=== PATIENT | male | born 1955 | race Caucasian/White ===

== ENCOUNTER 2023-12-09 14:51 | Inpatient (IN) | payer MEDICARE ==
[2023-12-09] MEDS: T.ENECTEPLASE 5 MG/ML VIAL IVP STA (15:17)
--- NOTE | 2023-12-09 16:14 | CT ---
EXAMINATION TYPE: CT brain wo con DATE OF EXAM: 12/09/2023 COMPARISON: None HISTORY: 68-year-old male left side weakness, neuro deficit TECHNIQUE: Examination was done in axial plane without intravenous contrast. Coronal and sagittal r econstructions performed. CT DLP: 1188.6 mGycm Automated exposure control for dose reduction was used. FINDINGS: There is no evidence of acute intracranial hemorrhage, acute ischemic changes, mass, mass-effect, or extra-axial fluid collection. There is no effacement of cerebral sulci or basal subarachnoid cister ns. Mild ventricular prominence likely due to central cerebral atrophy. Moderate patchy white matter hypodensities in both cerebral hemispheres. There is no midline shift. Corral-white matter distinction is preserved. Paranasal sinuses and mastoid air cells are well pneumatized. IMPRESSION: Mild ventriculomegaly likely due to central cervical atrophy. Moderate patchy burden of chronic small vessel ischemic disease. No acute intracranial abnormality seen.
--- NOTE | 2023-12-09 16:25 | CT ---
EXAMINATION TYPE: CT angio head neck DATE OF EXAM: 12/09/2023 COMPARISON: None HISTORY: 68-year-old male left side weakness, neuro deficit TECHNIQUE: Contiguous axial scanning of the head and neck performed with IV Contrast, patient injecte d with 65ml mL of Isovue 370. Coronal/sagittal reconstructions performed. 3-D reconstructions generat ed on a dedicated workstation. CT DLP: 523.9 mGycm Automated exposure control for dose reduction was used. FINDINGS: NECK: Some pleural calcifications noted. Prominent irregular focal opacities right upper lobe. Partially vi sualized irregular opacity right upper lobe with possible internal cavitation measuring at least 3.7 cm. Underlying neoplastic etiology or atypical mycobacterial/fungal infections should be excluded. 1.8 cm right hilar node. There appears to be right upper lobe segmental branch emboli, axial image 9. Conventional arch vessel branching anatomy. Dominant left vertebral artery. These vessels may have moderate stenoses at their origins but are oth erwise patent. NASCET criteria is visualized. The right common and right internal carotid arteries are patent with mild atherosclerotic change but no significant narrowing. More extensive atherosclerotic change at the left carotid bifurcation with a severe, greater than 80% , possibly 90% stenosis proximal left ICA. HEAD: The hypoplastic right vertebral artery may terminate as a PICA branch. There is persistent orig in right MEDICAL COLLECTOR. Basilar artery remainder of the posterior circulation appear patent. Atherosclerotic calcifications in the left greater than the right carotid siphons with moderate steno sis cavernous segment left ICA. Otherwise, the remainder of the anterior circulation is patent. No aneurysmal change is seen. Dural venous sinuses are patent. IMPRESSION: NECK: 1. SEVERE, POSSIBLY UP TO 90% PROXIMAL LEFT ICA STENOSIS. 2. DOMINANT LEFT VERTEBRAL ARTERY. 3. ABNORMAL FOCAL OPACITIES RIGHT UPPER LOBE. ONE OF THESE OPACITIES MAY SHOW SOME INTERNAL CAVITATIO N. NEOPLASTIC ETIOLOGY AND ATYPICAL FUNGAL/MYCOBACTERIAL INFECTIONS ARE IN THE DIFFERENTIAL. FURTHER APPROPRIATE WORKUP ADVISED. 4. THE EXAM APPEARS POSITIVE FOR SEGMENTAL BRANCH PULMONARY EMBOLI TO THE RIGHT UPPER LOBE. CALLED TO DR. MCCLAIN IN THE ER AT 4:20 PM. HEAD: 5. ANATOMIC VARIATION WITH THE RIGHT VERTEBRAL ARTERY TERMINATING A PICA BRANCH AND PERSISTENT FET AL ORIGIN RIGHT MEDICAL COLLECTOR. 6. Moderate atherosclerotic stenosis cavernous segment left ICA. 7. No large vessel intracranial arterial occlusion, significant stenosis, or aneurysmal change is oth erwise seen.
--- NOTE | 2023-12-09 16:37 | ED ---
General Adult HPI - General Time Seen by Provider: 12/09/23 14:51 Source: patient, RN notes reviewed, old records reviewed - History of Present Illness Initial comments: This is a 68-year-old male who presents to the emergency department and states he was standing at the counter and just fell to the ground and hit his knees but he did not have any significant injury. Patient denies hitting his head or neck. Patient's came in and found him and he had slurred speech left-sided facial droop left arm weakness and left leg weakness. Patient went to CAT scan and when he returned his speech was clear however the other deficits remained. - Related Data Allergies Allergy/AdvReac Type Severity Reaction Status Date / Time diphenhydramine Allergy Rapid Verified 12/09/23 17:02 [From Benadryl] Heart Rate Review of Systems ROS Statement: Those systems with pertinent positive or pertinent negative responses have been documented in the HPI. ROS Other: All systems not noted in ROS Statement are negative. General Exam - General Exam Comments Initial Comments: GENERAL: Patient is well-developed and well-nourished. Patient is nontoxic and well- hydrated and is in mild distress. ENT: Neck is soft and supple. No significant lymphadenopathy is noted. Oropharynx is clear. Moist mucous membranes. Neck has full range of motion without eliciting any pain. EYES: The sclera were anicteric and conjunctiva were pink and moist. Extraocular movements were intact and pupils were equal round and reactive to light. Eyelids were unremarkable. PULMONARY: Unlabored respirations. Good breath sounds bilaterally. No audible rales rhonchi or wheezing was noted. CARDIOVASCULAR: There is a regular rate and rhythm without any murmurs gallops or rubs. ABDOMEN: Soft and nontender with normal bowel sounds. SKIN: Skin is clear with no lesions or rashes and otherwise unremarkable. NEUROLOGIC: Patient is alert and oriented x3. Patient had left-sided facial droop. Patient had weakness on the left arm and left leg 3 out of 5. Patient had pronator drift on the left side as well. Patient had slurred speech initially however after CAT scan had already resolved finger-nose testing was off on the left side only MUSCULOSKELETAL: Normal extremities with adequate strength and full range of motion. LYMPHATICS: No significant lymphadenopathy is noted PSYCHIATRIC: Normal psychiatric evaluation. Course Vital Signs 12/09/23 14:51 Temperature 98.4 F Pulse Rate 84 Respiratory 16 Rate Blood Pressure 123/74 O2 Sat by Pulse 94 L Oximetry Medical Decision Making - Medical Decision Making EKG is interpreted by myself EKG shows a sinus rhythm at 82 bpm parables 183 QRS is 94 QT interval 362 QTc is 400. Patient has Q waves in the inferior leads. Was pt. sent in by a medical professional or institution (, PA, NURSE SUPERVISOR, urgent care, hospital, or [facility]...) When possible be specific @ -No Did you speak to anyone other than the patient for history (EMS, parent, family, police, friend...)? What history was obtained from this source @ -EMS gave the history from when they picked him up to when they arrived here and his deficits that they appreciated. Did you review nursing and triage notes (agree or disagree)? Why? @ -I reviewed and agree with nursing and triage notes Were old charts reviewed (outside hosp., previous admission, EMS record, old EKG, old radiological studies, urgent care reports/EKG's, [facility] records)? Report findings @ -No old charts were reviewed Differential Diagnosis (chest pain, altered mental status, abdominal pain women, abdominal pain men, vaginal bleeding, weakness, fever, dyspnea, syncope, headache, dizziness, GI bleed, back pain, seizure, CVA, palpatations, mental health, musculoskeletal)? @ -Differential CVA Ischemic stroke, hemorrhagic stroke, brain tumor, atypical migraine, Wernicke's encephalopathy, seizure, multiple sclerosis, meningitis, encephalitis, hypoglycemia, Guillain-Gilliam, electrolytes disturbance, myasthenia gravis.... This is not meant to be an all-inclusive list EKG interpreted by me (3pts min.). @ -As above X-rays interpreted by me (1pt min.). @ -Chest x-ray showed right upper lobe opacification CT interpreted by me (1pt min.). @ -CT of the brain showed no acute normality. CT angiogram of the head and neck show severe left internal carotid artery stenosis some possible PEs in the right upper lobe and there is. Already did a CT PE study which showed multiple pulmonary embolisms in the right upper lobe with possible infarcted lung U/S interpreted by me (1pt. min.). @ -None done What testing was considered but not performed or refused? (CT, X-rays, U/S, labs)? Why? @ -None What meds were considered but not given or refused? Why? @ -None Did you discuss the management of the patient with other professionals (professionals i.e. DrSharmin, PA, NURSE SUPERVISOR, lab, RT, psych nurse, social media developer, skylights assembler, teacher, examining officer, human services case manager)? Give summary @ -I spoke with Dr. Whatley he agreed admit the patient. I spoke with Dr. Bills he agreed to take the patient in the ICU. I also spoke with the neurologist Dr. Bills and he agreed to follow-up with the patient I spoke with the neurointerventionist Dr. Alexander Was smoking cessation discussed for >3mins.? @ -No Was critical care preformed (if so, how long)? @ -15 minutes Were there social determinants of health that impacted care today? How? (Homelessness, low income, unemployed, alcoholism, drug addiction, transportation, low edu. Level, literacy, decrease access to med. care, custodial, rehab)? @ -No Was there de-escalation of care discussed even if they declined (Discuss DNR or withdrawal of care, Hospice)? DNR status @ -No What co-morbidities impacted this encounter? (DM, HTN, Smoking, COPD, CAD, Cancer, CVA, ARF, Chemo, Hep., AIDS, mental health diagnosis, sleep apnea, morbid obesity)? @ -None Was patient admitted / discharged? Hospital course, mention meds given and route, prescriptions, significant lab abnormalities, going to OR and other pertinent info. @ -Patient came in and presented as acute stroke he did receive TNKase. Patient end had CT of the chest to see if the patient had PE he did indeed have PEs however heparin was held at this time secondary to the fact he just got TNKase. I went back and reevaluated the patient and he had no symptoms at this time. Patient denied any history of recent cough fever or difficulty breathing. Undiagnosed new problem with uncertain prognosis? @ -No Drug Therapy requiring intensive monitoring for toxicity (Heparin, Nitro, Insulin, Cardizem)? @ -No Were any procedures done? @ -No Diagnosis/symptom? @ -CVA Acute, or Chronic, or Acute on Chronic? @ -Acute Uncomplicated (without systemic symptoms) or Complicated (systemic symptoms)? @ -Complicated Side effects of treatment? @ -No Exacerbation, Progression, or Severe Exacerbation? @ -No Poses a threat to life or bodily function? How? (Chest pain, [place], [place], pneumonia, PE, COPD, DKA, ARF, appy, cholecystitis, CVA, Diverticulitis, Homicidal, Suicidal, threat to staff... and all critical care pts) @ -Yes this can lead to further stroke and morbidity mortality Diagnosis/symptom? @ -Pulmonary embolisms Acute, or Chronic, or Acute on Chronic? @ -Acute Uncomplicated (without systemic symptoms) or Complicated (systemic symptoms)? @ -Complicated Side effects of treatment? @ -None Exacerbation, Progression, or Severe Exacerbation] @ -No Poses a threat to life or bodily function? @ -Yes this could lead to hypoxia and endorgan dysfunction - Lab Data Result diagrams: 12/09/23 16:48 12/09/23 16:48 Lab Results 12/09/23 12/09/23 12/09/23 Range/Units 16:48 16:48 16:48 WBC 10.0 (3.8-10.6) k/uL RBC 4.87 (4.30-5.90) m/uL Hgb 15.1 (13.0-17.5) gm/dL Hct 45.2 (39.0-53.0) % MCV 92.8 (80.0-100.0) fL MCH 31.0 (25.0-35.0) pg MCHC 33.4 (31.0-37.0) g/dL RDW 15.9 H (11.5-15.5) % Plt Count 282 (150-450) k/uL MPV 7.4 Neutrophils % 81 % Lymphocytes % 10 % Monocytes % 6 % Eosinophils % 1 % Basophils % 0 % Neutrophils # 8.1 H (1.3-7.7) k/uL Lymphocytes # 1.0 (1.0-4.8) k/uL Monocytes # 0.6 (0-1.0) k/uL Eosinophils # 0.1 (0-0.7) k/uL Basophils # 0.0 (0-0.2) k/uL PT 11.3 (10.0-12.5) sec INR 1.0 (<1.2) APTT 22.9 (22.0-30.0) sec Sodium 134 L (137-145) mmol/L Potassium 4.4 (3.5-5.1) mmol/L Chloride 101 (98-107) mmol/L Carbon Dioxide 26 (22-30) mmol/L Anion Gap 7 mmol/L BUN 17 (9-20) mg/dL Creatinine 1.11 (0.66-1.25) mg/dL Est GFR (CKD-EPI)AfAm 78 (>60 ml/min/1.73 sqM) Est GFR (CKD-EPI)NonAf 67 (>60 ml/min/1.73 sqM) Glucose 128 H (74-99) mg/dL Plasma Lactic Acid Ziggy (0.7-2.0) mmol/L Calcium 9.4 (8.4-10.2) mg/dL Total Bilirubin 0.8 (0.2-1.3) mg/dL AST 22 (17-59) U/L ALT 15 (4-49) U/L Alkaline Phosphatase 75 (38-126) U/L Troponin I (0.000-0.034) ng/mL Total Protein 7.0 (6.3-8.2) g/dL Albumin 4.1 (3.5-5.0) g/dL 12/09/23 12/09/23 Range/Units 16:48 16:48 WBC (3.8-10.6) k/uL RBC (4.30-5.90) m/uL Hgb (13.0-17.5) gm/dL Hct (39.0-53.0) % MCV (80.0-100.0) fL MCH (25.0-35.0) pg MCHC (31.0-37.0) g/dL RDW (11.5-15.5) % Plt Count (150-450) k/uL MPV Neutrophils % % Lymphocytes % % Monocytes % % Eosinophils % % Basophils % % Neutrophils # (1.3-7.7) k/uL Lymphocytes # (1.0-4.8) k/uL Monocytes # (0-1.0) k/uL Eosinophils # (0-0.7) k/uL Basophils # (0-0.2) k/uL PT (10.0-12.5) sec INR (<1.2) APTT (22.0-30.0) sec Sodium (137-145) mmol/L Potassium (3.5-5.1) mmol/L Chloride (98-107) mmol/L Carbon Dioxide (22-30) mmol/L Anion Gap mmol/L BUN (9-20) mg/dL Creatinine (0.66-1.25) mg/dL Est GFR (CKD-EPI)AfAm (>60 ml/min/1.73 sqM) Est GFR (CKD-EPI)NonAf (>60 ml/min/1.73 sqM) Glucose (74-99) mg/dL Plasma Lactic Acid Ziggy 1.5 (0.7-2.0) mmol/L Calcium (8.4-10.2) mg/dL Total Bilirubin (0.2-1.3) mg/dL AST (17-59) U/L ALT (4-49) U/L Alkaline Phosphatase (38-126) U/L Troponin I <0.012 (0.000-0.034) ng/mL Total Protein (6.3-8.2) g/dL Albumin (3.5-5.0) g/dL Critical Care Time Critical Care Time: Yes Total Critical Care Time: 35 Disposition Clinical Impression: Cerebrovascular accident (CVA), Pulmonary embolism Disposition: ADMITTED IP TO THIS [facility] Referrals: Nonstaff,Physician [REFERRING] - 1-2 days Time of Disposition: 19:33
[2023-12-09 16:55] LABS: Basophils % (A) 0 %; Eosinophils # (A) 0.1 k/uL (0-0.7); Eosinophils % (A) 1 %; HCT 45.2 % (39.0-53.0); HGB 15.1 gm/dL (13.0-17.5); Lymphocytes % (A) 10 %; MCHC 33.4 g/dL (31.0-37.0); MCV 92.8 fL (80.0-100.0); Mean Platelet Volume 7.4; Monocytes # (A) 0.6 k/uL (0-1.0); Monocytes % (A) 6 %; Neutrophils # (A) 8.1 k/uL (1.3-7.7); Neutrophils % (A) 81 %; Platelet Count 282 k/uL (150-450); RBC 4.87 m/uL (4.30-5.90); RDW 15.9 % (11.5-15.5)
[2023-12-09 17:03] LABS: Partial Thromboplastin Time 22.9 sec (22.0-30.0); Prothrombin Time 11.3 sec (10.0-12.5)
[2023-12-09 17:04] LABS: ALT 15 U/L (4-49); AST 22 U/L (17-59); African American GFR (CKD) 78 (>60 ml/min/1.73 sqM); Albumin 4.1 g/dL (3.5-5.0); Alkaline Phosphatase 75 U/L (38-126); Anion Gap 7 mmol/L; Blood Urea Nitrogen 17 mg/dL (9-20); Calcium 9.4 mg/dL (8.4-10.2); Carbon Dioxide 26 mmol/L (22-30); Chloride 101 mmol/L (98-107); Glucose 128 mg/dL (74-99); Non-African American GFR(CKD) 67 (>60 ml/min/1.73 sqM); Potassium 4.4 mmol/L (3.5-5.1); Sodium 134 mmol/L (137-145); Total Bilirubin 0.8 mg/dL (0.2-1.3)
--- NOTE | 2023-12-09 17:33 | XR ---
EXAMINATION TYPE: XR chest 2V DATE OF EXAM: 12/09/2023 5:18 PM CLINICAL INDICATION:Male, 68 years old with history of altered mental status; H COMPARISON: None TECHNIQUE: XR chest 2V Frontal and lateral views of the chest. FINDINGS: Lungs/Pleura: Right mid and upper lung airspace opacities. There is no evidence of pleural effusion, focal consolidation, or pneumothorax. Pulmonary vascularity: Unremarkable. Heart/mediastinum: Cardiomediastinal silhouette is unremarkable. Musculoskeletal: No acute osseous pathology. Midline sternotomy wires are noted. IMPRESSION: Right midlung and upper lung airspace opacities correlate for developing pneumonia.
--- NOTE | 2023-12-09 19:10 | CT ---
EXAMINATION TYPE: CT chest angio for PE CT DLP: 381.36 mGycm, Automated exposure control for dose reduction was used. DATE OF EXAM: 12/09/2023 6:42 PM COMPARISON: CTA neck same day. CLINICAL INDICATION:Male, 68 years old with history of Previous CT shows possible PE; possible PE see n on CTA neck scan TECHNIQUE/CONTRAST: CTA scan of the thorax is performed with IV Contrast, patient injected with 73cc mL of Isovue 370, MO P images are created and reviewed these are created on a separate workstation.. FINDINGS: Pulmonary Artery: Filling defect within the right upper lung pulmonary segmental artery series 411 im age 55. Other small filling defects felt to be present in the subsegmental branches of the right uppe r and middle lobe. Filling defects extend extend to these wedge-shaped peripheral opacities seen with in the right upper and middle lung. Lungs/Pleura: Multiple airspace opacities in the right lung somewhat cavitation centrally tonsil area in the middle lobe along the minor fissure measuring at least 4.4 x 2.5 cm. Scattered calcifications are seen along the pleura. No left-sided consolidation, pneumothorax or pleural effusion. Airway: Large airways are patent. Heart: Heart is within normal limits for size. Aortic valve calcifications are present. Coronary stephani ry cusp patient's are present. Vasculature: No evidence of aortic aneurysm. Mediastinum: No gross evidence of adenopathy. Musculoskeletal: No acute osseous abnormalities Soft Tissues/lymph nodes: Unremarkable. Lower neck: No significant findings. Upper Abdomen: No significant findings. IMPRESSION: 1. Right upper lunge pulmonary emboli visualized in the subsegmental and subsegmental arterial vascul ature. 2. Airspace opacities in the right upper and right middle lobe somewhat peripheral with at least one with cavitation. Given pulmonary emboli these may represent infarcts. Correlate for infectious etiolo gies. 3. Calcifications along the pleura which can be seen in setting of asbestos exposure. Findings communicated to Dr. Ashkan Hutchinson MD on 12/09/2023 7:[address] Brayden Durham
--- NOTE | 2023-12-09 20:47 | US ---
EXAMINATION TYPE: US venous doppler duplex LE DATE OF EXAM: 12/09/2023 8:16 PM COMPARISON: NONE CLINICAL INDICATION: Male, 68 years old with history of Pulmonary embolisms and stroke; Patient has P E SIDE PERFORMED: Bilateral TECHNIQUE: The lower extremity deep venous system is examined utilizing real time linear array sonog skye with graded compression, doppler sonography and color-flow sonography. VESSELS IMAGED: Common Femoral Vein Deep Femoral Vein Greater Saphenous Vein * Femoral Vein Popliteal Vein Small Saphenous Vein * Proximal Calf Veins (* superficial vessels) Right Leg: Collateral vessels seen branching off the distal CFV. Distal CFV appears to have no flow. Vessel anterior to this vein does have color flow could represent greater saphenous vein. Echoes see n along the velazquez within the popliteal vein. Vessel appears partially compressible Left Leg: Negative for DVT Grayscale, color doppler, spectral doppler imaging performed of the deep veins of the lower extremiti es. There is normal flow, compressibility, vascular waveforms. IMPRESSION: Deep vein thrombosis of the distal common femoral vein. Partial occlusion of the popliteal vein nonoc clusive thrombus also felt to be present.
[2023-12-09 21:01] LABS: Glucose,Whole Blood 133 mg/dL (70-110)
[2023-12-10] MEDS ORDERED: DEXTROSE 50% SYRINGE 50 ML IVP PRN ×2 (03:08)
[2023-12-10 05:10] LABS: Glucose,Whole Blood 124 mg/dL (70-110)
[2023-12-10] MEDS: INSULIN ASPART (NovoLOG) 100 UNIT/ML VIAL SQ SCH (06:01)
--- NOTE | 2023-12-10 06:29 | P.CNPUL ---
History of Present Illness Consult date: 12/10/23 Requesting physician: Ashkan Hutchinson Reason for consult: other (ICU management, CVA status post tenecteplase, pulmonary emboli) Chief complaint: Fall and left-sided weakness History of present illness: Patient is a 68-year-old white male with past medical history significant for diabetes mellitus, prostate cancer status post radiation, former tobacco smoker quitting 2 years ago, and recent COVID infection. Patient was in the kitchen yesterday, he had a fall to the ground, hit his knees. His heard this, and found him on the ground. He could not stand back up by himself. He had slurred speech, left-sided facial droop, and left-sided weakness. 911 was called immediately, and a code stroke was initiated. Patient was transferred to [facility] on ER. Initial NIH score is 6. Noncontrast CT of the brain showed mild ventriculomegaly likely due to central cervical atrophy. Moderate patchy burden of chronic small vessel ischemic disease. No acute intracranial process seen. Follow-up CT angio of the head and neck showed severe, possibly up to 90% proximal left ICA stenosis. Dominant left vertebral artery. No large vessel intracranial arterial occlusion, significant stenosis, or aneurysm change otherwise seen. Patient did receive tenecteplase infusion per protocol. There were some incidental pulmonary findings noted on CTA of the head and neck, which initiated a chest CTA to be performed which showed right upper lung pulmonary emboli visualized in the segmental and subsegmental arterial vasculature. There are airspace opacities in the right upper and right middle lobes, somewhat peripheral with at least 1 area of cavitation. Given the patient's pulmonary emboli, these likely represent pulmonary infarcts. There was also incidentally some pleural plaquing noted. Patient is currently in the intensive care unit, on room air, in no acute distress. He continues to have a left-sided facial droop, with dysarthria, and left-sided hemiparesis. Blood pressure currently 138/70 mmHg. Heart rhythm appears normal sinus on bedside monitor, around 80 bp m. No respiratory distress or tachypnea. Patient denies any infectious symptoms such as fevers, cough, sputum production, chest pain, hemoptysis. Actually denies any pulmonary complaints. He is currently on room air. SpO2 is 93%. He did reportedly have a recent COVID infection back in September, when he was visiting in [place]. He did not go to the hospital at this time. Mode of transportation was driving. Denies any personal history of blood clots. Denies any recent surgeries or trauma. A follow-up venous Doppler did identify a DVT of the distal common femoral vein on the right, with a partial occlusion of the popliteal vein nonocclusive thrombus also felt to be present. CBC unremarkable. No leukocytosis. Baseline coagulation profile includes a PT of 11.3, INR of 1, APTT of 22.9. BMP includes: Sodium 134, potassium 4.4, chloride 101, serum bicarb 26, BUN 17, creatinine 1.11, glucose 128. Lactic acid 1.5. LFTs not elevated. Troponin less than 0.012. EKG on arrival shows normal sinus without any acute ischemic changes. Follow-up echocardiogram is pending. Neurochecks are continuing per protocol. Follow-up CT of the brain without contrast is pending for the morning. Review of Systems Review REVIEW OF SYSTEMS: CONSTITUTIONAL: Denies any recent significant weight loss or weight gain. EYES: Denies change in vision. EARS, NOSE, MOUTH, THROAT: Denies headaches, denies sore throat. CARDIOVASCULAR: Denies chest pain, palpitations or syncopal episodes. RESPIRATORY: Denies shortness of breath, cough, congestion or hemoptysis. GASTROINTESTINAL: Denies change in appetite, abdominal pain, nausea and vomiting, or diarrhea GENITOURINARY: Denies hematuria, denies infections. MUSKULOSKELETAL: Denies pain, denies swelling. INTEGUMENTARY: Denies rash, denies eczema. NEUROLOGICAL: Denies recent memory loss, no recent seizure activity. Does admit acute left-sided weakness and fall as described in HPI PSYCHIATRIC: Denies anxiety, denies depression. HEMATOLOGIC/LYMPHATIC: Denies anemia, denies enlarged lymph node of systems Past Medical History Past Medical History: Diabetes Mellitus, Prostate Disorder History of Any Multi-Drug Resistant Organisms: None Reported Past Surgical History: Appendectomy, Joint Replacement Additional Past Surgical History / Comment(s): L knee Past Psychological History: No Psychological Hx Reported Smoking Status: Former smoker Past Alcohol Use History: Rare Past Drug Use History: None Reported Medications and Allergies Home Medications Medication Instructions Recorded Confirmed Type Empagliflozin/Metformin HCl 1 tab PO DAILY 12/09/23 12/09/23 History [Synjardy Xr 12.5-1,000 mg Tab] Ketoconazole 2% Shampoo [Nizoral] 1 applic TOPICAL MO 12/09/23 12/09/23 History Lansoprazole [Prevacid 24Hr] 15 mg PO DAILY 12/09/23 12/09/23 History Magnesium(Unknown Dose) 1 tab PO DAILY 12/09/23 12/09/23 History Semaglutide [Ozempic] 0.5 mg SQ MO 12/09/23 12/09/23 History Tamsulosin [Flomax] 0.4 mg PO DAILY 12/09/23 12/09/23 History Vitamin B-12(Unknown Dose) 1 tab PO DAILY 12/09/23 12/09/23 History Vitamin D3(Unknown Dose) 1 tab PO DAILY 12/09/23 12/09/23 History tadalafiL 5 mg PO Q2D 12/09/23 12/09/23 History Allergies Allergy/AdvReac Type Severity Reaction Status Date / Time diphenhydramine Allergy Rapid Verified 12/09/23 20:18 [[facility]] Heart Rate Physical Exam Vitals: Vital Signs Temp Pulse Resp BP Pulse Ox 12/10/23 02:00 97 23 130/72 96 12/10/23 01:30 83 18 130/72 96 12/10/23 01:00 83 15 145/70 88 L 12/10/23 00:30 79 17 145/70 89 L 12/10/23 00:00 77 28 H 138/70 93 L 12/09/23 23:30 87 19 164/91 89 L 12/09/23 23:00 19 137/74 90 L 12/09/23 22:30 81 6 L 140/73 92 L 12/09/23 22:00 82 10 L 128/70 92 L 12/09/23 21:30 84 9 L 130/67 93 L 12/09/23 21:08 89 44 H 139/70 94 L 12/09/23 21:00 98.7 F 89 13 142/83 94 L 12/09/23 20:36 81 18 143/72 94 L 12/09/23 14:51 98.4 F 84 16 123/74 94 L Intake and Output 12/09/23 12/09/23 12/10/23 14:59 22:59 06:59 Intake Total 0 Output Total 1000 300 Balance -1000 -300 Intake: Oral 0 Output: Urine 1000 300 Other: Voiding Method Urinal # Voids 4 Weight 79.379 kg 87 kg GENERAL EXAM: Alert, 68-year-old white male, fairly comfortable in no apparent distress. HEAD: Normocephalic and atraumatic EYES: Normal reaction of pupils, equal size. NOSE: Clear with pink turbinates. THROAT: No erythema or exudates. NECK: No masses, no JVD. CHEST: No chest wall deformity. LUNGS: Equal air entry with no crackles, wheeze, rhonchi or dullness. On room air. No conversational dyspnea or accessory muscle use.. CVS: S1 and S2 normal with no audible murmur, regular rhythm. No extra heart s ounds ABDOMEN: No hepatosplenomegaly, active bowel sounds, no guarding or rigidity. SPINE: No scoliosis or deformity SKIN: No rashes CENTRAL NERVOUS SYSTEM: Patient is alert and oriented x 3, there is still residual left-sided facial droop, mild dysarthria, vision/peripheral vision intact, no gaze palsy, left-sided hemiparesis noted with associated diminished sensation, no ataxia. EXTREMITIES: There is no peripheral edema, clubbing, or cyanosis. Peripheral pulses are intact. Results - Laboratory Findings CBC and BMP: 12/09/23 16:48 12/09/23 16:48 PT/INR, D-dimer PT 11.3 sec (10.0-12.5) 12/09/23 16:48 INR 1.0 (<1.2) 12/09/23 16:48 Abnormal lab findings: Abnormal Labs 12/09/23 12/09/23 12/09/23 16:48 16:48 20:58 RDW 15.9 H Neutrophils # 8.1 H Sodium 134 L Glucose 128 H POC Glucose (mg/dL) 133 H - Diagnostic Findings Chest x-ray: image reviewed CT scan - chest: image reviewed Assessment and Plan Assessment: Acute ischemic CVA, status post tenecteplase infusion per protocol. Initial NIH scored at 6. Patient continues to have residual left-sided hemiparesis, left- sided facial droop, and dysarthria. Acute segmental and subsegmental right-sided pulmonary emboli within the right middle and upper lobe, there is associated airspace opacities in the right upper and right middle lobes, somewhat peripheral with at least 1 area of cavitation. Given the patient's pulmonary emboli, likely representing areas of pulmonary infarct. No central or saddle pulmonary emboli. No CT evidence of right-sided heart strain. No hemodynamic instability. Deep vein thrombosis, venous Doppler did identify a DVT of the distal common femoral vein on the right, with a partial occlusion of the popliteal vein nonocclusive thrombus also felt to be present. Severe proximal left-sided ICA stenosis, estimated approximately 90%, dominant left vertebral artery. Diabetes mellitus, type II Recent COVID infection, reportedly when visiting [place] in September, History of prostate cancer status post radiation Former tobacco smoker, quitting over 2 years ago Plan: Patient's medications, labs, imaging reviewed Patient is status post tenecteplase infusion per protocol Continue neurochecks per protocol 24-hour follow-up CT of the brain without contrast is scheduled for this morning. Will start the patient on anticoagulants once cleared by neurology. Currently on room air. No hemodynamic compromise. No saddle PE. No CT evidence of right- sided heart strain. Neurology has been consulted. Continue neurochecks per protocol. Continue to monitor blood pressure. Lipid panel pending for the morning. Will start patient on high intensity statin. Follow-up echocardiogram is pending for the morning. possibile PFO or shunting. Appropriate consults including speech, PT, and OT. Currently NPO. Attempt bedside swallow. We will continue to follow, and further recommendations are forthcoming. I have personally seen and examined the patient, performed the documentation and the assessment and plan as written. Number of minutes spent on the visit:20 Time with Patient: Greater than 30
[2023-12-10 06:48] LABS: Basophils # (A) 0.1 k/uL (0-0.2); Basophils % (A) 1 %; Eosinophils # (A) 0.2 k/uL (0-0.7); Eosinophils % (A) 2 %; HCT 45.6 % (39.0-53.0); HGB 14.6 gm/dL (13.0-17.5); Lymphocytes # (A) 0.9 k/uL (1.0-4.8); Lymphocytes % (A) 11 %; MCH 30.2 pg (25.0-35.0); MCHC 32.1 g/dL (31.0-37.0); MCV 94.1 fL (80.0-100.0); Mean Platelet Volume 7.5; Monocytes # (A) 0.5 k/uL (0-1.0); Monocytes % (A) 6 %; Neutrophils # (A) 6.6 k/uL (1.3-7.7); Neutrophils % (A) 79 %; Platelet Count 298 k/uL (150-450); RBC 4.84 m/uL (4.30-5.90); RDW 15.4 % (11.5-15.5); WBC 8.4 k/uL (3.8-10.6)
[2023-12-10 07:04] LABS: INR 1.1 (<1.2); Prothrombin Time 11.7 sec (10.0-12.5)
[2023-12-10 07:06] LABS: African American GFR (CKD) 80 (>60 ml/min/1.73 sqM); Anion Gap 4 mmol/L; Blood Urea Nitrogen 14 mg/dL (9-20); Calcium 9.2 mg/dL (8.4-10.2); Carbon Dioxide 27 mmol/L (22-30); Chloride 103 mmol/L (98-107); Glucose 103 mg/dL (74-99); Non-African American GFR(CKD) 69 (>60 ml/min/1.73 sqM); Potassium 4.2 mmol/L (3.5-5.1); Sodium 134 mmol/L (137-145)
--- NOTE | 2023-12-10 09:17 | P.HPIM ---
History of Present Illness Patient is a pleasant 68 years old male with past medical history of diabetes mellitus and prostate cancer Presents because of strokelike signs symptoms with left-sided weakness including arm and leg and left facial droop, patient also fell at home. Patient is awake alert able to talk freely but complaining from severe weakness in his left forearm and hand and to a lesser extent in his left leg. He feels abnormal feeling in his left arm as he is not feeling it. He denies any headache or dizziness but also there is some evidence of left- sided facial droop and deviation of the face to the right side Patient denies chest pain or dyspnea however on admission he had CTA of the head of the neck showing possible occlusions of the pulmonary artery hence CTA of the chest was obtained and was positive for pulmonary embolism of the right upper lobe right middle lobe with opacities suspicious for infarct Patient denies leg pain, coughing blood or hemoptysis, recent surgery. Patient denies chest pain or coughing No change in urine or bowel habits. No fever or chills He states he is currently alcohol or smoking cigarettes for about 2 years ago for now On admission neurologist wants to hold anticoagulation for 24 hours because of his acute stroke Currently patient not receiving IV fluid, currently patient not on aspirin or other antiplatelet medication. Not on anticoagulation Repeat CT of the brain is ordered for 2 PM today Review of Systems Review of systems CONSTITUTIONAL: No fever, no malaise, no fatigue. HEENT: No recent visual problems or hearing problems. Denied any sore throat. CARDIOVASCULAR: No orthopnea, PND, no palpitations, no syncope. PULMONARY: No shortness of breath, no cough, no hemoptysis. GASTROINTESTINAL: No diarrhea, no nausea, no vomiting, no abdominal pain. Normoactive bowel sounds. NEUROLOGICAL: No headaches, no dizziness HEMATOLOGICAL: Denies any bleeding or petechiae. GENITOURINARY: Denies any burning micturition, frequency, or urgency. MUSCULOSKELETAL/RHEUMATOLOGICAL: Denies any joint pain, swelling, or any muscle pain. ENDOCRINE: Denies any polyuria or polydipsia. Past Medical History Past Medical History: Diabetes Mellitus, Prostate Disorder History of Any Multi-Drug Resistant Organisms: None Reported Past Surgical History: Appendectomy, Joint Replacement Additional Past Surgical History / Comment(s): L knee Past Psychological History: No Psychological Hx Reported Smoking Status: Former smoker Past Alcohol Use History: Rare Past Drug Use History: None Reported Medications and Allergies Home Medications Medication Instructions Recorded Confirmed Type Empagliflozin/Metformin HCl 1 tab PO DAILY 12/09/23 12/09/23 History [Synjardy Xr 12.5-1,000 mg Tab] Ketoconazole 2% Shampoo [Nizoral] 1 applic TOPICAL MO 12/09/23 12/09/23 History Lansoprazole [Prevacid 24Hr] 15 mg PO DAILY 12/09/23 12/09/23 History Magnesium(Unknown Dose) 1 tab PO DAILY 12/09/23 12/09/23 History Semaglutide [Ozempic] 0.5 mg SQ MO 12/09/23 12/09/23 History Tamsulosin [Flomax] 0.4 mg PO DAILY 12/09/23 12/09/23 History Vitamin B-12(Unknown Dose) 1 tab PO DAILY 12/09/23 12/09/23 History Vitamin D3(Unknown Dose) 1 tab PO DAILY 12/09/23 12/09/23 History tadalafiL 5 mg PO Q2D 12/09/23 12/09/23 History Allergies Allergy/AdvReac Type Severity Reaction Status Date / Time diphenhydramine Allergy Rapid Verified 12/09/23 20:18 [From Benadryl] Heart Rate Physical Exam Vitals: Vital Signs Temp Pulse Resp BP Pulse Ox 12/10/23 07:00 84 20 126/77 97 12/10/23 06:00 72 17 137/75 96 12/10/23 05:00 98.8 F 75 25 H 128/71 96 12/10/23 04:00 74 17 136/73 95 12/10/23 03:00 77 19 146/87 98 12/10/23 02:00 97 23 130/72 96 12/10/23 01:30 83 18 130/72 96 12/10/23 01:00 83 15 145/70 88 L 12/10/23 00:30 79 17 145/70 89 L 12/10/23 00:00 77 28 H 138/70 93 L 12/09/23 23:30 87 19 164/91 89 L 12/09/23 23:00 19 137/74 90 L 12/09/23 22:30 81 6 L 140/73 92 L 12/09/23 22:00 82 10 L 128/70 92 L 12/09/23 21:30 84 9 L 130/67 93 L 12/09/23 21:08 89 44 H 139/70 94 L 12/09/23 21:00 98.7 F 89 13 142/83 94 L 12/09/23 20:36 81 18 143/72 94 L 12/09/23 14:51 98.4 F 84 16 123/74 94 L Intake and Output 12/09/23 12/10/23 12/10/23 22:59 06:59 14:59 Intake Total 0 250 100 Output Total 1000 1150 0 Balance -1000 -900 100 Intake: Oral 0 250 100 Output: Urine 1000 1150 0 Other: Voiding Method Urinal # Voids 4 1 # Bowel Movements 0 Weight 87 kg 79 kg GENERAL: The patient is alert and oriented x3, not in any acute distress. Well developed, well nourished. HEENT: Pupils are round and equally reacting to light. EOMI. No scleral icterus. No conjunctival pallor. Normocephalic, atraumatic. No pharyngeal erythema. No thyromegaly. CARDIOVASCULAR: S1 and S2 present. No murmurs, rubs, or gallops. -PULMONARY: Chest is clear to auscultation, no wheezing , no crackles. Mildly tachypneic ABDOMEN: Soft, nontender, nondistended, normoactive bowel sounds. No palpable organomegaly. MUSCULOSKELETAL: No joint swelling or deformity. EXTREMITIES: No cyanosis, clubbing, or pedal edema. -NEUROLOGICAL: Left facial droop with right facial deviation. Left-sided weakness arm more than leg with abnormal sensation in the left arm. Meningeal signs absent SKIN: No rashes. no petechiae. Results CBC & Chem 7: 12/10/23 05:38 12/10/23 05:38 Labs: Abnormal Lab Results - Last 24 Hours (Table) 12/09/23 12/09/23 12/09/23 Range/Units 16:48 16:48 20:58 RDW 15.9 H (11.5-15.5) % Neutrophils # 8.1 H (1.3-7.7) k/uL Lymphocytes # (1.0-4.8) k/uL Sodium 134 L (137-145) mmol/L Glucose 128 H (74-99) mg/dL POC Glucose (mg/dL) 133 H (70-110) mg/dL 12/10/23 12/10/23 12/10/23 Range/Units 05:08 05:38 05:38 RDW (11.5-15.5) % Neutrophils # (1.3-7.7) k/uL Lymphocytes # 0.9 L (1.0-4.8) k/uL Sodium 134 L (137-145) mmol/L Glucose 103 H (74-99) mg/dL POC Glucose (mg/dL) 124 H (70-110) mg/dL Thrombosis Risk Factor Assmnt - Choose All That Apply Each Risk Factor Represents 2 Points: Age 61-74 years Other congenital or acquired thrombophilia - If yes, enter type in comment: No Thrombosis Risk Factor Assessment Total Risk Factor Score: 2 Thrombosis Risk Factor Assessment Level: Low Risk Assessment and Plan Assessment: Acute stroke with left hemiparesis Acute pulmonary embolism with no evidence of right heart strain but probably currently excluded Right lung infarct Differential diagnosis fungal infection and neoplasm Fall at home secondary to above Right lower extremity deep venous thrombosis, acute Diabetes mellitus Plan: Follow-up repeat CAT scan of the brain Anticoagulation and antiplatelet management as per neurology service Pulmonary team are following for right leg DVT and PE Labs and medication were reviewed.. Continue same treatment. Continue with symptomatic treatment. Resume home medication. Monitor labs and vitals. DVT and GI prophylaxis. Further recommendations as per clinical course of the patient DVT prophylaxis: hold GI Prophylaxis: Pepcid PT/OT: Pending Prognosis is guarded
[2023-12-10] MEDS: FAMOTIDINE 20 MG/2 ML VIAL IV SCH (10:06)
[2023-12-10 10:27] LABS: Chol/HDL Ratio 3.86 Ratio; LDL Cholesterol,Calculated 100.3 mg/dL (0.0-131.0)
[2023-12-10 11:42] LABS: Glucose,Whole Blood 130 mg/dL (70-110)
--- NOTE | 2023-12-10 15:17 | CT ---
EXAMINATION TYPE: CT brain wo con DATE OF EXAM: 12/10/2023 COMPARISON: 12/09/2023 HISTORY: 68-year-old male Neuro deficit, acute, stroke suspected, post TPA TECHNIQUE: Examination was done in axial plane without intravenous contrast. Coronal and sagittal r econstructions performed. CT DLP: 1154.4 mGycm Automated exposure control for dose reduction was used. FINDINGS: There is no evidence of acute intracranial hemorrhage, acute ischemic changes, mass, mass-effect, or extra-axial fluid collection. There is no effacement of cerebral sulci or basal subarachnoid cister ns. Mild ventriculomegaly and moderate patchy white matter hypodensities in both cerebral hemispheres are unchanged. Several atherosclerotic calcifications in the carotid siphons. There is no midline sh ift. Corral-white matter distinction is preserved. Paranasal sinuses and mastoid air cells are well pneumatized. Orbits and globes are intact. IMPRESSION: Similar central cerebral atrophy and moderate burden of chronic small vessel ischemic disease. No acu te intracranial abnormality seen. No evidence for hemorrhagic transformation.
[2023-12-10 16:56] LABS: Glucose,Whole Blood 126 mg/dL (70-110)
--- NOTE | 2023-12-10 17:01 | P.GSCN ---
History of Present Illness Consult date: 12/10/23 Reason for Consult: Left ICA stenosis, CVA this admit Requesting physician: Joel Bills History of present illness: Patient is a 68-year-old white male with past medical history significant for diabetes mellitus, prostate cancer status post radiation, former tobacco smoker quitting 2 years ago, and recent COVID infection. Patient was in the kitchen yesterday, he had a fall to the ground, hit his knees. His heard this, and found him on the ground. He could not stand back up by himself. He had slurred speech, left-sided facial droop, and left-sided weakness. 911 was called immediately, and a code stroke was initiated. Patient was transferred to [facility] on ER. Initial NIH score is 6. Vascular surgery was consulted for left internal carotid artery stenosis for acute stroke. Patient also admitted with pulmonary embolism and DVT. He did reportedly have a recent COVID infection back in September, when he was visiting in [place]. Patient drove. Denies any personal history of blood clots. Denies any recent surgeries or trauma. Patient was going down for repeat brain CT. Denies any chest pain, shortness of breath, abdominal pain, nausea or vomiting at this time. He still has a residual slur, mild weakness and minimal facial droop on the left.All improved according to patient and family. Noncontrast CT of the brain showed mild ventriculomegaly likely due to central cervical atrophy. Moderate patchy burden of chronic small vessel ischemic disease. No acute intracranial process seen. Follow-up CT angio of the head and neck showed severe, possibly up to 90% proximal left ICA stenosis. Dominant left vertebral artery. No large vessel intracranial arterial occlusion, significant stenosis, or aneurysm change otherwise seen. Patient did receive tenecteplase infusion per protocol. There were some incidental pulmonary findings noted on CTA of the head and neck, which initiated a chest CTA to be performed which showed right upper lung pulmonary emboli visualized in the segmental and subsegmental arterial vasculature. There are airspace opacities in the right upper and right middle lobes, somewhat peripheral with at least 1 area of cavitation. Review of Systems A 14 point review systems was completed all pertinent positives and negatives as stated in the HPI. Past Medical History Past Medical History: Diabetes Mellitus, Prostate Disorder History of Any Multi-Drug Resistant Organisms: None Reported Past Surgical History: Appendectomy, Joint Replacement Additional Past Surgical History / Comment(s): L knee Past Psychological History: No Psychological Hx Reported Smoking Status: Former smoker Past Alcohol Use History: Rare Past Drug Use History: None Reported Medications and Allergies Home Medications Medication Instructions Recorded Confirmed Type Empagliflozin/Metformin HCl 1 tab PO DAILY 12/09/23 12/09/23 History [Synjardy Xr 12.5-1,000 mg Tab] Ketoconazole 2% Shampoo [Nizoral] 1 applic TOPICAL MO 12/09/23 12/09/23 History Lansoprazole [Prevacid 24Hr] 15 mg PO DAILY 12/09/23 12/09/23 History Magnesium(Unknown Dose) 1 tab PO DAILY 12/09/23 12/09/23 History Semaglutide [Ozempic] 0.5 mg SQ MO 12/09/23 12/09/23 History Tamsulosin [Flomax] 0.4 mg PO DAILY 12/09/23 12/09/23 History Vitamin B-12(Unknown Dose) 1 tab PO DAILY 12/09/23 12/09/23 History Vitamin D3(Unknown Dose) 1 tab PO DAILY 12/09/23 12/09/23 History tadalafiL 5 mg PO Q2D 12/09/23 12/09/23 History Allergies Allergy/AdvReac Type Severity Reaction Status Date / Time diphenhydramine Allergy Rapid Verified 12/09/23 20:18 [From Benadryl] Heart Rate Surgical - Exam Vital Signs Temp Pulse Resp BP Pulse Ox 98.4 F 84 16 123/74 94 L 12/09/23 14:51 12/09/23 14:51 12/09/23 14:51 12/09/23 14:51 12/09/23 14:51 General appearance: The patient is alert, oriented, appears in no acute distress. HET: Head is normocephalic and atraumatic. Pupils are equal and reactive. Neck: Supple. Heart: Regular. Lungs: Equal expansion, normal respiratory effort. Abdomen: Soft, nontender, nondistended. Extremities: Normal skin color and turgor. Neurological: Speech with mild slur, minimal left facial droop. Left upper extremity weakness. Results - Labs 12/10/23 05:38 12/10/23 05:38 Abnormal Lab Results - Last 24 Hours (Table) 12/09/23 12/09/23 12/09/23 Range/Units 16:48 16:48 20:58 RDW 15.9 H (11.5-15.5) % Neutrophils # 8.1 H (1.3-7.7) k/uL Lymphocytes # (1.0-4.8) k/uL Sodium 134 L (137-145) mmol/L Glucose 128 H (74-99) mg/dL POC Glucose (mg/dL) 133 H (70-110) mg/dL Triglycerides (0.00-149.00) mg/dL 12/10/23 12/10/23 12/10/23 Range/Units 05:08 05:38 05:38 RDW (11.5-15.5) % Neutrophils # (1.3-7.7) k/uL Lymphocytes # 0.9 L (1.0-4.8) k/uL Sodium 134 L (137-145) mmol/L Glucose 103 H (74-99) mg/dL POC Glucose (mg/dL) 124 H (70-110) mg/dL Triglycerides 180.00 H (0.00-149.00) mg/dL 12/10/23 Range/Units 11:42 RDW (11.5-15.5) % Neutrophils # (1.3-7.7) k/uL Lymphocytes # (1.0-4.8) k/uL Sodium (137-145) mmol/L Glucose (74-99) mg/dL POC Glucose (mg/dL) 130 H (70-110) mg/dL Triglycerides (0.00-149.00) mg/dL Diabetes panel 12/09/23 12/10/23 Range/Units 16:48 05:38 Sodium 134 L 134 L (137-145) mmol/L Potassium 4.4 4.2 (3.5-5.1) mmol/L Chloride 101 103 (98-107) mmol/L Carbon Dioxide 26 27 (22-30) mmol/L BUN 17 14 (9-20) mg/dL Creatinine 1.11 1.08 (0.66-1.25) mg/dL Glucose 128 H 103 H (74-99) mg/dL Calcium 9.4 9.2 (8.4-10.2) mg/dL AST 22 (17-59) U/L ALT 15 (4-49) U/L Alkaline Phosphatase 75 (38-126) U/L Total Protein 7.0 (6.3-8.2) g/dL Albumin 4.1 (3.5-5.0) g/dL Triglycerides 180.00 H (0.00-149.00) mg/dL HDL Cholesterol 47.70 (40.00-60.00) mg/dL Calcium panel 12/09/23 12/10/23 Range/Units 16:48 05:38 Calcium 9.4 9.2 (8.4-10.2) mg/dL Albumin 4.1 (3.5-5.0) g/dL Pituitary panel 12/09/23 12/10/23 Range/Units 16:48 05:38 Sodium 134 L 134 L (137-145) mmol/L Potassium 4.4 4.2 (3.5-5.1) mmol/L Chloride 101 103 (98-107) mmol/L Carbon Dioxide 26 27 (22-30) mmol/L BUN 17 14 (9-20) mg/dL Creatinine 1.11 1.08 (0.66-1.25) mg/dL Glucose 128 H 103 H (74-99) mg/dL Calcium 9.4 9.2 (8.4-10.2) mg/dL Adrenal panel 12/09/23 12/10/23 Range/Units 16:48 05:38 Sodium 134 L 134 L (137-145) mmol/L Potassium 4.4 4.2 (3.5-5.1) mmol/L Chloride 101 103 (98-107) mmol/L Carbon Dioxide 26 27 (22-30) mmol/L BUN 17 14 (9-20) mg/dL Creatinine 1.11 1.08 (0.66-1.25) mg/dL Glucose 128 H 103 H (74-99) mg/dL Calcium 9.4 9.2 (8.4-10.2) mg/dL Total Bilirubin 0.8 (0.2-1.3) mg/dL AST 22 (17-59) U/L ALT 15 (4-49) U/L Alkaline Phosphatase 75 (38-126) U/L Total Protein 7.0 (6.3-8.2) g/dL Albumin 4.1 (3.5-5.0) g/dL - Imaging Comments: Noncontrast CT of the brain showed mild ventriculomegaly likely due to central cervical atrophy. Moderate patchy burden of chronic small vessel ischemic disease. No acute intracranial process seen. CT angio of the head and neck reported severe, possibly up to 90% proximal left ICA stenosis. Dominant left vertebral artery. No large vessel intracranial arterial occlusion, significant stenosis, or aneurysm change otherwise seen. Patient did receive tenecteplase infusion per protocol. There were some incidental pulmonary findings noted on CTA of the head and neck, which initiated a chest CTA to be performed which showed right upper lung pulmonary emboli visualized in the segmental and subsegmental arterial vasculature. There are airspace opacities in the right upper and right middle lobes, somewhat peripheral with at least 1 area of cavitation. Chest CT angiogram reports right upper lung pulmonary emboli visualized in the subsegmental and subsegmental arterial vasculature. Airspace opacities in the right upper and right middle lobe somewhat peripheral with at least 1 with cavitation. Given pulmonary emboli these may represent infarcts. Correlate for infectious etiologies. Calcifications along the pleura which can be seen in setting of Sebesta's exposure. Venous duplex reported DVT of the distal common femoral vein on the right, with a partial occlusion of the popliteal vein nonocclusive thrombus also felt to be present. Assessment and Plan Assessment: 1. Asymptomatic left internal carotid artery stenosis 2. Acute stroke presenting with left-sided weakness, dysarthria and left facial droop 3. Pulmonary embolism 4. Right lower extremity deep vein thrombosis 5. Diabetes mellitus 6. Recent COVID-19 infection 7. Former smoker Plan: 1. Continue with workup and recommendations from neurology 2. Recommend bubble study 3. Anticoagulation and antiplatelet therapy per recommendations from neurology 4. No plans on any vascular surgical intervention at this time. Patient with asymptomatic left ICA stenosis. Recommend outpatient follow-up. This was discussed with patient and his family at the bedside. 5. MRI brain ordered per neurology, currently pending 6. Continue with ICU management Thank you for this consultation, we will continue to follow. The impression and plan of care has been dictated as directed. I performed a history and examination of this patient, discussed the same with the dictator. I agree with the dictator's note ,documented as a scribe. Any additional findings or plans will be noted.
--- NOTE | 2023-12-10 17:45 | CA ---
Transthoracic Echo Report Name: Aleksandar Llanes Age: 68 Gender: M : 1955 Exam Date: 12/10/2023 08:54 Exam Location: [facility] Ht (in): 67 Wt (lb): 175 Ordering Physician: Ashkan Hutchinson MD Attending/Referring Phys: [facility] Supervisor Serena Hadley RDCS Procedure CPT: Indications: stroke Cardiac Hx: Technical Quality: Fair Contrast 1: Total Dose (mL): Contrast 2: Total Dose (mL): MEASUREMENTS (Male / Female) Normal Values 2D ECHO LV Diastolic Diameter PLAX 4.1 cm 4.2 - 5.9 / 3.9 - 5.3 cm LV Systolic Diameter PLAX 2.7 cm IVS Diastolic Thickness 1.5 cm 0.6 - 1.0 / 0.6 - 0.9 cm LVPW Diastolic Thickness 1.0 cm 0.6 - 1.0 / 0.6 - 0.9 cm LV Relative Wall Thickness 0.6 M-MODE Aortic Root Diameter MM 3.3 cm LA Systolic Diameter MM 3.5 cm LA Ao Ratio MM 1.1 DOPPLER AV Peak Velocity 216.3 cm/s AV Peak Gradient 18.7 mmHg AV Mean Velocity 134.7 cm/s AV Mean Gradient 8.7 mmHg AV Velocity Time Integral 38.8 cm LVOT Peak Velocity 84.8 cm/s LVOT Peak Gradient 2.9 mmHg LVOT Velocity Time Integral 16.2 cm MV Area PHT 3.6 cm??? Mitral E Point Velocity 64.2 cm/s Mitral A Point Velocity 73.3 cm/s Mitral E to A Ratio 0.9 MV Deceleration Time 211.3 ms TR Peak Velocity 206.4 cm/s TR Peak Gradient 17.0 mmHg Right Ventricular Systolic Press 20.6 mmHg FINDINGS Left Ventricle Moderately increased left ventricular wall thickness. Left ventricular cavity size normal. Normal left ventricular systolic function with no obvious regional wall motion abnormalities. Left ventricular ejection fraction is estimated at 55-60 %. Right Ventricle Normal right ventricular size and function. Right ventricular systolic pressure within normal limits. Right Atrium Normal right atrial size. Left Atrium Normal left atrial size. Mitral Valve Structurally normal mitral valve. Mitral valve thickened. Mild mitral annular calcification. Aortic Valve Mild aortic stenosis with a peak gradient of 19 mmHg and a mean gradient of 9 mmHg. Focal thickening of the aortic valve cusps. Tricuspid Valve Structurally normal tricuspid valve. Mild tricuspid regurgitation. Pulmonic Valve Structurally normal pulmonic valve. Pericardium No pericardial effusion. Aorta Normal size aortic root and proximal ascending aorta. CONCLUSIONS Normal LV function Mild aortic stenosis Consider transesophageal echo to definitively rule out cardiac source for CVA Previewed by: Dr. Abiodun Chaney MD (Electronically Signed) Final Date: 10 December 2023 17:45
--- NOTE | 2023-12-10 18:33 | P.CNNES ---
History of Present Illness Consult date: 12/10/23 Requesting physician: Ashkan Hutchinson Reason for Consult: cva History of Present Illness: This is a 68-year-old gentleman with medical history of hypertension, diabetes mellitus, former tobacco use who presents to the emergency department for left- sided weakness and slurred speech. Patient's is at bedside who helps with some of the history. It seems that yesterday at around 1145 the patient was in the kitchen and all of a sudden he felt and he is not sure if he passed out or not but will after the fall he noticed that he was trying to grab a cup with his left hand which is the dominant hand and he noticed that it slipped from the left hand. Also seems that the patient was slurring his speech yesterday and had left-sided weakness. He denies any history of stroke. He denies being on any antiplatelet. Denies any A-fib. Denies being on any anticoagulation. He is a former smoker and stopped smoking about 2 years ago. His blood pressure is controlled with diet. His diabetes he is on medication but the last hemoglobin A1c was 7.6. Patient continues to have weakness over the left side including the face. Some of the workup during this hospital visit consisted of: Lipid panel is triglyceride is 180, cholesterol is 184, LDL is 100.3 and HDL is 47. A code stroke was activated in the ED team. Patient received CT of the head which is reported as mild ventriculomegaly likely due to the central cervical atrophy. Moderate patchy burden of chronic small vessel ischemic disease. No acute intracranial abnormality seen. She reviewed the CT and I agree there is no acute or subacute stroke. CT angiography shows possible severe left ICA stenosis as well as possible PE in the right upper lobe. Showed abnormal focal opacity in the right upper lobe and neoplastic etiology and atypical fungal/mycobacterial infection are in the differential. Then later mentioned exam appears positive for segmental branch pulmonary emboli. Moderate atherosclerotic stenosis segment left ICA He was given TNK yesterday in the ED. His duplex is reported as DVT of the distal common femoral vein. Partial occlusion of the popliteal vein nonocclusive thrombus also felt to be present Review of Systems Review of system: The 12 point system was reviewed and apparent positive and negative per HPI. Past Medical History Past Medical History: Diabetes Mellitus, Prostate Disorder History of Any Multi-Drug Resistant Organisms: None Reported Past Surgical History: Appendectomy, Joint Replacement Additional Past Surgical History / Comment(s): L knee Past Psychological History: No Psychological Hx Reported Smoking Status: Former smoker Past Alcohol Use History: Rare Past Drug Use History: None Reported Medications and Allergies Home Medications Medication Instructions Recorded Confirmed Type Empagliflozin/Metformin HCl 1 tab PO DAILY 12/09/23 12/09/23 History [Synjardy Xr 12.5-1,000 mg Tab] Ketoconazole 2% Shampoo [Nizoral] 1 applic TOPICAL MO 12/09/23 12/09/23 History Lansoprazole [Prevacid 24Hr] 15 mg PO DAILY 12/09/23 12/09/23 History Magnesium(Unknown Dose) 1 tab PO DAILY 12/09/23 12/09/23 History Semaglutide [Ozempic] 0.5 mg SQ MO 12/09/23 12/09/23 History Tamsulosin [Flomax] 0.4 mg PO DAILY 12/09/23 12/09/23 History Vitamin B-12(Unknown Dose) 1 tab PO DAILY 12/09/23 12/09/23 History Vitamin D3(Unknown Dose) 1 tab PO DAILY 12/09/23 12/09/23 History tadalafiL 5 mg PO Q2D 12/09/23 12/09/23 History Allergies Allergy/AdvReac Type Severity Reaction Status Date / Time diphenhydramine Allergy Rapid Verified 12/09/23 20:18 [From Benadryl] Heart Rate Physical Examination - Vital Signs Vital Signs: Vital Signs Temp Pulse Resp BP Pulse Ox 12/10/23 11:00 82 10 L 122/75 96 12/10/23 10:00 84 14 135/67 96 12/10/23 09:00 84 21 120/64 95 12/10/23 08:00 97.9 F 77 17 133/75 95 12/10/23 07:00 84 20 126/77 97 12/10/23 06:00 72 17 137/75 96 12/10/23 05:00 98.8 F 75 25 H 128/71 96 12/10/23 04:00 74 17 136/73 95 12/10/23 03:00 77 19 146/87 98 12/10/23 02:00 97 23 130/72 96 12/10/23 01:30 83 18 130/72 96 12/10/23 01:00 83 15 145/70 88 L 12/10/23 00:30 79 17 145/70 89 L 12/10/23 00:00 77 28 H 138/70 93 L 12/09/23 23:30 87 19 164/91 89 L 12/09/23 23:00 19 137/74 90 L 12/09/23 22:30 81 6 L 140/73 92 L 12/09/23 22:00 82 10 L 128/70 92 L 12/09/23 21:30 84 9 L 130/67 93 L 12/09/23 21:08 89 44 H 139/70 94 L 12/09/23 21:00 98.7 F 89 13 142/83 94 L 12/09/23 20:36 81 18 143/72 94 L Intake and Output 12/10/23 12/10/23 12/10/23 06:59 14:59 22:59 Intake Total 250 350 Output Total 1150 500 Balance -900 -150 Intake: Oral 250 350 Output: Urine 1150 500 Other: Voiding Method Urinal External Catheter # Voids 1 # Bowel Movements 0 Weight 79 kg GENERAL: The patient is lying in bed and is not in acute distress. NEUROLOGICAL: Higher mental function: The patient is awake, alert, oriented to self, place and time. Patient is following commands. No aphasia and no neglect. Cranial nerves: The pupils are round, equal and reactive to light and accommodation. Visual begum are full to confrontation throughout. Extraocular movement is intact no nystagmus is noted. Facial sensation is normal to touch throughout. The facial strength is mild to moderate left lower facial droop. Has mild dysathria. Hearing is normal bilaterally to hand rub. Tongue is midline and moved [id number] without any difficulty. Shoulder shrug is normal bilaterally. Motor: The strength is left upper and lower extremity is 4-4+ and has drift on left side. 5 over 5 throughout right side. Slight decrease tone over the left side. Cerebellum: Normal finger to nose bilaterally. Sensation: Sensation is normal to touch throughout. Reflexes (right/left): 2+ throughout. Plantars are mute bilaterally. Results - Laboratory Findings CBC and BMP: 12/10/23 05:38 12/10/23 05:38 Abnormal Lab Findings: Abnormal Labs 12/09/23 12/09/23 12/09/23 16:48 16:48 20:58 RDW 15.9 H Neutrophils # 8.1 H Lymphocytes # Sodium 134 L Glucose 128 H POC Glucose (mg/dL) 133 H Triglycerides 12/10/23 12/10/23 12/10/23 05:08 05:38 05:38 RDW Neutrophils # Lymphocytes # 0.9 L Sodium 134 L Glucose 103 H POC Glucose (mg/dL) 124 H Triglycerides 180.00 H 12/10/23 11:42 RDW Neutrophils # Lymphocytes # Sodium Glucose POC Glucose (mg/dL) 130 H Triglycerides Assessment and Plan Assessment: This is a 68-year-old gentleman who presents emergency department on 12/09/2023 because of left-sided weakness and slurred speech. A code stroke was activated and the patient was given TNKase yesterday in the afternoon. CT angiography shows possible left ICA stenosis of about 90%. It also seems the patient has a pulmonary embolism and DVT in the lower extremity. Acute stroke (left hemiparesis, left facial droop, subtle dysarhria) post IV TNK Left ICA stenosis on CTA but feel asymptomatic since I would expect right sided weakness. Pulmonary embolism DVT Underlying history of Diabetes mellitus Underlying history of Hypertension History of prostate cancer Former tobacco use and stopped smoking about 2 years ago Plan: Patient will have a repeat CT of the head post 24-hour IV TNK today. If negative for any bleed will start the patient on aspirin 81 mg. If patient needs to be on anticoagulation then will defer the use of anticoagulation to the primary and ICU team especially with the PE and the pulmonary embolism. If heparin drip is started please avoid boluses and keep the PTT between 45 and 60. He is on Lipitor 80 mg nightly for secondary stroke prophylaxis Pending 2D echo I consulted vascular surgery team for left ICA Hemoglobin A1c is ordered and is pending Continue neurochecks Cardiac monitoring Regarding the systolic blood pressure please avoid more than 185 and diastolic more than 110 for IV TNK protocol Will defer the rest of the medical management to primary and other specialist For DVT prophylaxis use SCDs Plan discussed with the patient, his was at bedside and his nurse Thank for the consultation Time with Patient: Greater than 30
[2023-12-10] MEDS ORDERED: diazePAM 5 MG TAB PO PRN (18:36)
[2023-12-10] MEDS ORDERED: HEPARIN SODIUM 1,000 UN/ML (10ML VL) IV PRN (19:26)
[2023-12-10] MEDS: ASPIRIN 325 MG TAB PO SCH (19:52)
[2023-12-10 19:53] LABS: Basophils % (A) 1 %; Eosinophils # (A) 0.2 k/uL (0-0.7); Eosinophils % (A) 2 %; HCT 46.4 % (39.0-53.0); Lymphocytes % (A) 13 %; MCH 30.2 pg (25.0-35.0); MCHC 32.2 g/dL (31.0-37.0); MCV 93.8 fL (80.0-100.0); Mean Platelet Volume 7.5; Monocytes # (A) 0.5 k/uL (0-1.0); Monocytes % (A) 7 %; Neutrophils # (A) 6.2 k/uL (1.3-7.7); Neutrophils % (A) 77 %; Platelet Count 303 k/uL (150-450); RBC 4.94 m/uL (4.30-5.90); RDW 15.5 % (11.5-15.5)
[2023-12-10] MEDS: HEPARIN SOD,PORK IN 0.45% NACL 25,000 UNIT in 0.45% NACL 1 250ML.BAG IV SCH (19:53)
[2023-12-10 19:58] LABS: INR 1.1 (<1.2); Partial Thromboplastin Time 25.7 sec (22.0-30.0); Prothrombin Time 11.6 sec (10.0-12.5)
[2023-12-10 20:11] LABS: Glucose,Whole Blood 131 mg/dL (70-110)
[2023-12-11 01:57] LABS: Basophils % (A) 1 %; Eosinophils # (A) 0.2 k/uL (0-0.7); Eosinophils % (A) 3 %; HCT 48.8 % (39.0-53.0); HGB 15.7 gm/dL (13.0-17.5); Lymphocytes # (A) 1.2 k/uL (1.0-4.8); Lymphocytes % (A) 16 %; MCHC 32.1 g/dL (31.0-37.0); MCV 93.5 fL (80.0-100.0); Mean Platelet Volume 7.1; Monocytes # (A) 0.5 k/uL (0-1.0); Monocytes % (A) 7 %; Neutrophils # (A) 5.4 k/uL (1.3-7.7); Neutrophils % (A) 73 %; Platelet Count 306 k/uL (150-450); RBC 5.22 m/uL (4.30-5.90); RDW 15.4 % (11.5-15.5); WBC 7.5 k/uL (3.8-10.6)
[2023-12-11 02:31] LABS: INR 1.1 (<1.2); Prothrombin Time 11.7 sec (10.0-12.5)
[2023-12-11 06:17] LABS: Glucose,Whole Blood 105 mg/dL (70-110)
[2023-12-11] MEDS ORDERED: LORazepam 2 MG/ML INJ IV PRN (08:34)
--- NOTE | 2023-12-11 08:39 | P.PN ---
Subjective Patient is a pleasant 68 years old male with past medical history of diabetes mellitus and prostate cancer Presents because of strokelike signs symptoms with left-sided weakness including arm and leg and left facial droop, patient also fell at home. Patient is awake alert able to talk freely but complaining from severe weakness in his left forearm and hand and to a lesser extent in his left leg. He feels abnormal feeling in his left arm as he is not feeling it. He denies any headache or dizziness but also there is some evidence of left-sided facial droop and deviation of the face to the right side Patient denies chest pain or dyspnea however on admission he had CTA of the head of the neck showing possible occlusions of the pulmonary artery hence CTA of the chest was obtained and was positive for pulmonary embolism of the right upper lo be right middle lobe with opacities suspicious for infarct Patient denies leg pain, coughing blood or hemoptysis, recent surgery. Patient denies chest pain or coughing No change in urine or bowel habits. No fever or chills He states he is currently alcohol or smoking cigarettes for about 2 years ago for now On admission neurologist wants to hold anticoagulation for 24 hours because of his acute stroke Currently patient not receiving IV fluid, currently patient not on aspirin or other antiplatelet medication. Not on anticoagulation Repeat CT of the brain is ordered for 2 PM today 12/11/2023 Patient seen and examined in the ICU Patient is awake alert His left hemiparesis significantly improved, his left upper extremity is almost back to normal as per patient and he is able to use his hand for eating and drinking as he is left-handed. His left facial droop also improved. No more weakness in the left lower extremity. Even the numbness and abnormal sensation in the left upper extremity improved Last night patient was started on aspirin 325 mg and heparin drip after he was cleared for his stroke MRI of the brain is recommended to be done today. Echocardiogram showing ejection fraction 55 to 60%. Patient denies any other new complaint Review of systems CONSTITUTIONAL: No fever, no malaise, no fatigue. HEENT: No recent visual problems or hearing problems. Denied any sore throat. CARDIOVASCULAR: No orthopnea, PND, no palpitations, no syncope. PULMONARY: No shortness of breath, no cough, no hemoptysis. GASTROINTESTINAL: No diarrhea, no nausea, no vomiting, no abdominal pain. Normoactive bowel sounds. NEUROLOGICAL: No headaches, no weakness, no numbness. HEMATOLOGICAL: Denies any bleeding or petechiae. Active Medications Generic Name Dose Route Start Last Admin Trade Name Gwen PRN Reason Stop Dose Admin Aspirin 325 mg 12/10/23 18:45 12/10/23 19:52 Aspirin 325 Mg Tab PO 325 mg DAILY JESSE Administration Atorvastatin Calcium 80 mg 12/11/23 21:00 Atorvastatin 80 Mg Tab PO HS JESSE Dextrose/Water 25 ml 12/10/23 03:08 Dextrose 50% Syringe 50 Ml IVP PER PROTOCOL PRN Hypoglycemia Protocol Dextrose/Water 50 ml 12/10/23 03:08 Dextrose 50% Syringe 50 Ml IVP PER PROTOCOL PRN Hypoglycemia Protocol Famotidine 20 mg 12/10/23 09:00 12/10/23 19:53 Famotidine 20 Mg/2 Ml Vial IV 20 mg Q12HR JESSE Administration Heparin Sodium (Porcine) 0 unit 12/10/23 19:26 Heparin Sodium 1,000 Un/Ml (10ml Vl) IV PER PROTOCOL PRN Low PTT Protocol Heparin Sodium/Sodium Chloride 250 mls @ 9.48 mls/hr 12/10/23 19:30 12/11/23 02:37 25,000 unit/ Sodium Chloride IV 15 units/kg/hr .Q24H JESSE 11.85 mls/hr Titration Protocol 12 UNITS/KG/HR Insulin Aspart 0 unit 12/10/23 07:30 12/11/23 07:06 Insulin Aspart (Novolog) 100 Unit/Ml Vial SQ Not Given ACHS JESSE Protocol Lorazepam 1 mg 12/11/23 08:34 Lorazepam 2 Mg/Ml Inj IV ONCE PRN Anxiety Objective - Vital Signs Vital signs: Vital Signs Temp 98.2 F 12/11/23 04:00 Pulse 84 12/11/23 07:00 Resp 17 12/11/23 07:00 BP 131/77 12/11/23 07:00 Pulse Ox 95 12/11/23 07:00 FiO2 Intake & Output 12/10/23 12/11/23 12/11/23 18:59 06:59 18:59 Intake Total 1050 1063.832 Output Total 1250 1800 Balance -200 -736.168 Weight 83.1 kg Intake: Intake, IV Titration 63.832 Amount Heparin Sod,Pork in 0.45% 63.832 NaCl 25,000 unit In 0.45 % NaCl 1 250ml.bag @ 12 UNITS/KG/HR 9.48 mls/hr IV .Q24H [facility] Rx#: [id number] Oral 1050 1000 Output: Urine 1250 1800 Other: Voiding Method External Catheter External Catheter - Exam GENERAL: The patient is alert and oriented x3, not in any acute distress. Well developed, well nourished. HEENT: Pupils are round and equally reacting to light. EOMI. No scleral icterus. No conjunctival pallor. Normocephalic, atraumatic. No pharyngeal erythema. No thyromegaly. CARDIOVASCULAR: S1 and S2 present. No murmurs, rubs, or gallops. PULMONARY: Chest is clear to auscultation, no wheezing , no crackles. ABDOMEN: Soft, nontender, nondistended, normoactive bowel sounds. No palpable organomegaly. MUSCULOSKELETAL: No joint swelling or deformity. EXTREMITIES: No cyanosis, clubbing, or pedal edema. NEUROLOGICAL: Gross neurological examination did not reveal any focal deficits. SKIN: No rashes. no petechiae. - Labs CBC & Chem 7: 12/11/23 01:41 12/10/23 05:38 Labs: Abnormal Lab Results - Last 24 Hours (Table) 12/10/23 12/10/23 12/10/23 Range/Units 05:38 11:42 16:54 APTT (22.0-30.0) sec POC Glucose (mg/dL) 130 H 126 H (70-110) mg/dL Triglycerides 180.00 H (0.00-149.00) mg/dL 12/10/23 12/11/23 Range/Units 20:10 01:41 APTT 30.1 H (22.0-30.0) sec POC Glucose (mg/dL) 131 H (70-110) mg/dL Triglycerides (0.00-149.00) mg/dL Microbiology - Last 24 Hours (Table) 12/09/23 16:48 Blood Culture - Preliminary Blood 12/09/23 16:30 Blood Culture - Preliminary Blood Assessment and Plan Assessment: Acute stroke with left hemiparesis Acute pulmonary embolism with no evidence of right heart strain Right lower extremity deep venous thrombosis, acute Right lung infarct, Differential diagnosis fungal infection and neoplasm Fall at home secondary to above 90% stenosis of the left internal carotid artery, cleared with vascular surgery team for discharge Diabetes mellitus Plan: Follow-up MRI of the brain Aantiplatelet management, patient was started on aspirin 325 mg Patient started on heparin drip. Pulmonary team, with management of right pulmonary opacity per pulmonary team. Most likely the infarction related to pulmonary embolism Labs and medication were reviewed.. Continue same treatment. Continue with symptomatic treatment. Resume home medication. Monitor labs and vitals. DVT and GI prophylaxis. Further recommendations as per clinical course of the patient DVT prophylaxis: Heparin GI Prophylaxis: Pepcid PT/OT: Pending Prognosis is guarded
--- NOTE | 2023-12-11 11:30 | MR ---
EXAMINATION TYPE: MR brain wo con DATE OF EXAM: 12/11/2023 11:15 AM CLINICAL INDICATION:Male, 68 years old with history of stroke; PHH, Stroke COMPARISON: 12/10/2023 12/08/2023. TECHNIQUE: Multi planar, multi sequence imaging was performed through the brain including: T1, T2, In version recovery, Diffusion weighted imaging, and gradient echo imaging. No gadolinium was given. FINDINGS: Scattered foci of restricted diffusion the right MCA territory involving the deep white mat ter of the right villavicencio radiata frontal lobe as well as cortex of the right insular cortex and right parietal lobe. Mild cerebral atrophy with proportional dilation of ventricular system. Scattered foci of high T2 s ignal intensity are seen within the periventricular white matter. Midline structures show no abnormal ity. The susceptibility weighted images do not reveal any evidence for micro-hemorrhage. The bone marrow signal is within normal limits. Paranasal sinuses and mastoid air cells: No significant paranasal sinus disease. Visualized orbits: Orbital contents are intact. IMPRESSION: 1. Acute/subacute CVA in the right MCA territory with scattered foci in the deep white matter and a f ew areas involving the cortex probably the right parietal lobe and insular cortex. 2. Nonspecific white matter changes, likely secondary to small vessel ischemic disease.
--- NOTE | 2023-12-11 11:44 | P.PN ---
Subjective Progress Note Date: 12/11/23 Principal diagnosis: CVA. Patient is a 68-year-old white male with past medical history significant for diabetes mellitus, prostate cancer status post radiation, former tobacco smoker quitting 2 years ago, and recent COVID infection. Patient was in the kitchen yesterday, he had a fall to the ground, hit his knees. His heard this, and found him on the ground. He could not stand back up by himself. He had slurred speech, left-sided facial droop, and left-sided weakness. 911 was called immediately, and a code stroke was initiated. Patient was transferred to [facility] on ER. Initial NIH score is 6. Noncontrast CT of the brain showed mild ventriculomegaly likely due to central cervical atrophy. Moderate patchy burden of chronic small vessel ischemic disease. No acute intracranial process seen. Follow-up CT angio of the head and neck showed severe, possibly up to 90% proximal left ICA stenosis. Dominant left vertebral artery. No large vessel intracranial arterial occlusion, significant stenosis, or aneurysm change otherwise seen. Patient did receive tenecteplase infusion per protocol. There were some incidental pulmonary findings noted on CTA of the head and neck, which initiated a chest CTA to be performed which showed right upper lung pulmonary emboli visualized in the segmental and subsegmental arterial vasculature. There are airspace opacities in the right upper and right middle lobes, somewhat peripheral with at least 1 area of cavitation. Given the patient's pulmonary emboli, these likely represent pulmonary infarcts. There was also incidentally some pleural plaquing noted. Patient is currently in the intensive care unit, on room air, in no acute distress. He continues to have a left-sided facial droop, with dysarthria, and left-sided hemiparesis. Blood pressure currently 138/70 mmHg. Heart rhythm appears normal sinus on bedside monitor, around 80 bpm. No respiratory distress or tachypnea. Patient denies any infectious symptoms such as fevers, cough, sputum production, chest pain, hemoptysis. Actually denies any pulmonary complaints. He is currently on room air. SpO2 is 93%. He did reportedly have a recent COVID infection back in September, when he was visiting in [place]. He did not go to the hospital at this time. Mode of transportation was driving. Denies any personal history of blood clots. Denies any recent surgeries or trauma. A follow-up venous Doppler did identify a DVT of the distal common femoral vein on the right, with a partial occlusion of the popliteal vein nonocclusive thrombus also felt to be present. CBC unremarkable. No leukocytosis. Baseline coagulation profile includes a PT of 11.3, INR of 1, APTT of 22.9. BMP includes: Sodium 134, potassium 4.4, chloride 101, serum bicarb 26, BUN 17, creatinine 1.11, glucose 128. Lactic acid 1.5. LFTs not elevated. Troponin less than 0.012. EKG on arrival shows normal sinus without any acute ischemic changes. Follow-up echocardiogram is pending. Neurochecks are continuing per protocol. Follow-up CT of the brain without contrast is pending for the morning. Progress note dated December 11, 2023. This is a patient who was seen in consultation yesterday. He presented to the emergency department, having fallen, in his kitchen. The patient apparently could not stand back up, had slurred speech, left facial droop, and left-sided weakness. Patient was seen in the emergency department, and was thought to have a CVA, and, was given tenecteplase. The patient is currently in the ICU, room 266. He is doing much better. The patient is on 2 L of oxygen. He is receiving IV heparin. In addition to the CVA, the patient was discovered to have pulmonary embolism, hence the IV heparin. Currently, he is doing much b miguel as mentioned above. Current laboratory data includes a white count 7.5, hemoglobin 15.7, hematocrit 48.8, platelet count that was normal. PTT is 38.1. Glucose is 105. Blood cultures are currently negative. Brain CT shows similar central cerebral atrophy and moderate burden of chronic small vessel ischemic disease. Nothing acute was noted. MRI reveals an acute/subacute CVA in the middle right MCA territory, with scattered foci in the deep white matter and a few areas involving the cortex, probably the right parietal lobe and insular cortex. Objective - Vital Signs Vital signs: Vital Signs Temp 97.7 F 12/11/23 08:00 Pulse 78 12/11/23 10:00 Resp 12 12/11/23 10:00 BP 119/75 12/11/23 10:00 Pulse Ox 94 L 12/11/23 10:00 FiO2 Intake & Output 12/10/23 12/11/23 12/11/23 18:59 06:59 18:59 Intake Total 1050 1063.832 321.37 Output Total 1250 1800 690 Balance -200 -736.168 -368.63 Weight 83.1 kg Intake: Intake, IV Titration 63.832 81.37 Amount Heparin Sod,Pork in 0.45% 63.832 81.37 NaCl 25,000 unit In 0.45 % NaCl 1 250ml.bag @ 12 UNITS/KG/HR 9.48 mls/hr IV .Q24H [facility] Rx#: [id number] Oral 1050 1000 240 Output: Urine 1250 1800 690 Other: Voiding Method External Catheter External Catheter External Catheter - Exam No acute distress, oriented 3. HEENT examination is grossly unremarkable. Mucous membranes are moist. No oral lesions. Neck supple. Full range of motion. No adenopathy thyromegaly or neck vein distention. Cardiovascular examination reveals regular rhythm rate. S1-S2 normal. No S3 or S4. No discernible murmur noted. Lungs reveal clear breath sounds. Her sounds are equal bilaterally. No adventitious lung sounds including wheezes rhonchi or crackles. Abdomen soft bowel sounds are heard. No masses or tenderness. Extremities are intact. No cyanosis clubbing or edema. Skin is without rash or lesion. Neurologic examination revealed minimal left-sided changes. - Labs CBC & Chem 7: 12/11/23 01:41 12/10/23 05:38 Labs: Abnormal Lab Results - Last 24 Hours (Table) 12/10/23 12/10/23 12/10/23 Range/Units 11:42 16:54 20:10 APTT (22.0-30.0) sec POC Glucose (mg/dL) 130 H 126 H 131 H (70-110) mg/dL 12/11/23 12/11/23 Range/Units 01:41 08:31 APTT 30.1 H 38.1 H (22.0-30.0) sec POC Glucose (mg/dL) (70-110) mg/dL Microbiology - Last 24 Hours (Table) 12/09/23 16:48 Blood Culture - Preliminary Blood 12/09/23 16:30 Blood Culture - Preliminary Blood Assessment and Plan Assessment: Acute ischemic CVA, status post TNK, with MRI showing evidence of right-sided infarct, in the area of the MCA. Acute segmental and subsegmental right-sided pulmonary emboli, involving the right upper lobe and right middle lobe. There may also be pulmonary infarction. Deep vein thrombosis, involving the distal common femoral vein on the right, with partial occlusion of the popliteal vein as well. Severe proximal left-sided ICA stenosis. Diabetes mellitus, type II, Recent coronavirus infection. History of prostate cancer, status post radiation. Previous history of tobacco use. Plan: Plan dated December 11, 2023. The patient is seen in the intensive care unit, room 266. He continues to have some left-sided symptomatology, but overall, things have improved. Labs, x- rays, and medications are reviewed. The patient was started on IV heparin for his pulmonary emboli. The results of the MRI are reviewed. We will continue to follow the patient, make recommendations along the way. Patient's overall prognosis is guarded. He has shown great improvement in the last 24 hours. Time with Patient: Greater than 30
--- NOTE | 2023-12-11 13:45 | P.PN ---
Subjective Progress Note Date: 12/11/23 Principal diagnosis: Carotid stenosis Plan patient is seen and examined today as a follow-up. No new focal deficits. Speech improving as well as weakness. Speech is clear and fluent. Patient underwent brain MRI showing acute/subacute right MCA territory stroke. Objective - Vital Signs Vital signs: Vital Signs Temp 98.2 F 12/11/23 04:00 Pulse 84 12/11/23 07:00 Resp 17 12/11/23 07:00 BP 131/77 12/11/23 07:00 Pulse Ox 95 12/11/23 07:00 FiO2 Intake & Output 12/10/23 12/11/23 12/11/23 18:59 06:59 18:59 Intake Total 1050 1063.832 Output Total 1250 1800 Balance -200 -736.168 Weight 83.1 kg Intake: Intake, IV Titration 63.832 Amount Heparin Sod,Pork in 0.45% 63.832 NaCl 25,000 unit In 0.45 % NaCl 1 250ml.bag @ 12 UNITS/KG/HR 9.48 mls/hr IV .Q24H [facility] Rx#: [id number] Oral 1050 1000 Output: Urine 1250 1800 Other: Voiding Method External Catheter External Catheter - Exam General appearance: The patient is alert, oriented, appears in no acute distress. HET: Head is normocephalic and atraumatic. Pupils are equal and reactive. Neck: Supple. Heart: Regular. Lungs: Equal expansion, normal respiratory effort. Abdomen: Soft, nontender, nondistended. Extremities: Normal skin color and turgor. Neurological: Speech is fluent. Slight left lip droop. Bilateral upper and lower extremity with good tone and strength. - Labs CBC & Chem 7: 12/11/23 01:41 12/10/23 05:38 Labs: Abnormal Lab Results - Last 24 Hours (Table) 12/10/23 12/10/23 12/10/23 Range/Units 05:38 11:42 16:54 APTT (22.0-30.0) sec POC Glucose (mg/dL) 130 H 126 H (70-110) mg/dL Triglycerides 180.00 H (0.00-149.00) mg/dL 12/10/23 12/11/23 12/11/23 Range/Units 20:10 01:41 08:31 APTT 30.1 H 38.1 H (22.0-30.0) sec POC Glucose (mg/dL) 131 H (70-110) mg/dL Triglycerides (0.00-149.00) mg/dL Microbiology - Last 24 Hours (Table) 12/09/23 16:48 Blood Culture - Preliminary Blood 12/09/23 16:30 Blood Culture - Preliminary Blood Assessment and Plan Assessment: 1. Asymptomatic left internal carotid artery stenosis 2. Acute/subacute right MCA territory stroke presenting with left-sided weakness, dysarthria and left facial droop 3. Pulmonary embolism 4. Right lower extremity deep vein thrombosis 5. Diabetes mellitus 6. Recent COVID-19 infection 7. Former smoker Plan: 1. Continue with recommendations from neurology 2. Recommend bubble study 3. Anticoagulation and antiplatelet therapy per recommendations from neurology 4. PT/OT/ST on consult 5. No plans on any vascular surgical intervention at this time. Patient with asymptomatic left ICA stenosis. Recommend outpatient follow-up. This was discussed with patient and his family at the bedside. Thank you for this consultation, we will sign off at this time. The impression and plan of care has been dictated as directed. I performed a history and examination of this patient, discussed the same with the dictator. I agree with the dictator's note ,documented as a scribe. Any additional findings or plans will be noted.
--- NOTE | 2023-12-11 18:07 | P.PN ---
Subjective Progress Note Date: 12/11/23 I am following-up with patient and he is accompanied with his daughter who feel he strength on left side is somewhat better today. Denies any new neurological issues. His repeat CT head yesterday was negative for bleed. He was started on heparin drip since had PE and DVT. Objective - Vital Signs Vital signs: Vital Signs Temp 97.7 F 12/11/23 08:00 Pulse 80 12/11/23 17:00 Resp 15 12/11/23 17:00 BP 147/118 12/11/23 17:00 Pulse Ox 97 12/11/23 17:00 FiO2 Intake & Output 12/10/23 12/11/23 12/11/23 18:59 06:59 18:59 Intake Total 1050 1063.832 657.395 Output Total 1250 1800 690 Balance -200 -736.168 -32.605 Weight 83.1 kg Intake: Intake, IV Titration 63.832 177.395 Amount Heparin Sod,Pork in 0.45% 63.832 177.395 NaCl 25,000 unit In 0.45 % NaCl 1 250ml.bag @ 12 UNITS/KG/HR 9.48 mls/hr IV .Q24H [facility] Rx#: [id number] Oral 1050 1000 480 Output: Urine 1250 1800 690 Other: Voiding Method External Catheter External Catheter External Catheter - Exam GENERAL: The patient is lying in bed and is not in acute distress. NEUROLOGICAL: Higher mental function: The patient is awake, alert, oriented to self, place and time. Patient is following commands. No aphasia and no neglect. Cranial nerves: The pupils are round, equal and reactive to light and accommodation. Visual begum are full to confrontation throughout. Extraocular movement is intact no nystagmus is noted. Facial sensation is normal to touch throughout. The facial strength is mild to moderate left lower facial droop. Has mild dysathria. Hearing is normal bilaterally to hand rub. Tongue is midline and moved [id number] without any difficulty. Shoulder shrug is normal bilaterally. Motor: The strength is left upper and lower extremity is 4+ on left side. 5 over 5 throughout right side. Slight decrease tone over the left side. Cerebellum: Normal finger to nose bilaterally. Sensation: Sensation is normal to touch throughout. Reflexes (right/left): 2+ throughout. Plantars are mute bilaterally. Some of the workup during this hospital visit consisted of: Hemoglobin A1c 6.9. Lipid panel is triglyceride is 180, cholesterol is 184, LDL is 100.3 and HDL is 47. CT of the head which is reported as mild ventriculomegaly likely due to the central cervical atrophy. Moderate patchy burden of chronic small vessel ischemic disease. No acute intracranial abnormality seen. She reviewed the CT and I agree there is no acute or subacute stroke. CT angiography shows possible severe left ICA stenosis as well as possible PE in the right upper lobe. Showed abnormal focal opacity in the right upper lobe and neoplastic etiology and atypical fungal/mycobacterial infection are in the differential. Then later mentioned exam appears positive for segmental branch pulmonary emboli. Moderate atherosclerotic stenosis segment left ICA Carotid duplex is reported as DVT of the distal common femoral vein. Partial occlusion of the popliteal vein nonocclusive thrombus also felt to be present Repeat CT head post 24 TNK: Similar central cerebral atrophy and moderate burden of chronic small vessel ischemic disease. No acute intracranial abnormality seen. No evidence for hemorrhage transformation. MRI of the brain is reported as acute/subacute CVA in the right MCA territory with scattered foci in the deep white matter and a few areas involving the cortex probably at the right parietal and insular cortex. Nonspecific white matter changes, likely secondary to small vessel ischemic disease. I personally reviewed the MRI and I agree there is acute stroke over the right MCA territory. 2D echo: It is reported as normal left ventricle is function. Mild aortic stenosis. Consider transesophageal echocardiogram to definitely rule out cardiac source for CVA. - Labs CBC & Chem 7: 12/11/23 01:41 12/10/23 05:38 Labs: Abnormal Lab Results - Last 24 Hours (Table) 12/10/23 12/11/23 12/11/23 Range/Units 20:10 01:41 08:31 APTT 30.1 H (22.0-30.0) sec POC Glucose (mg/dL) 131 H (70-110) mg/dL Hemoglobin A1c 6.9 H (<=6.0) % 12/11/23 12/11/23 Range/Units 08:31 15:49 APTT 38.1 H 43.8 H (22.0-30.0) sec POC Glucose (mg/dL) (70-110) mg/dL Hemoglobin A1c (<=6.0) % Microbiology - Last 24 Hours (Table) 12/09/23 16:48 Blood Culture - Preliminary Blood 12/09/23 16:30 Blood Culture - Preliminary Blood Assessment and Plan Assessment: This is a 68-year-old gentleman who presents emergency department on 12/09/2023 because of left-sided weakness and slurred speech. A code stroke was activated and the patient was given TNKase yesterday in the afternoon. CT angiography shows possible left ICA stenosis of about 90%. It also seems the patient has a pulmonary embolism and DVT in the lower extremity. Acute stroke (left hemiparesis, left facial droop, subtle dysarhria) post IV TNK. MRI Brain reveal right MCA stroke. Etiology of stroke seems embolic. Left ICA stenosis on CTA but feel asymptomatic since I would expect right sided weakness. Acute Pulmonary embolism Acute DVT in lower extremity Underlying history of Diabetes mellitus Underlying history of Hypertension History of prostate cancer Former tobacco use and stopped smoking about 2 years ago Plan: Patient is on aspirin 325 daily that was started yesterday post 24-hour IV thrombolytic. He is also on IV heparin drip for his acute PE and DVT. So far no new neurological issues and he feels somewhat better according to the patient and his family members Will pursue with bubble study on the 2D echo. Patient is reluctant on getting transesophageal echocardiogram and states if the 2D echo is negative then he will consider NIKKI especially since he is very phobic of having a tube down his throat. Vascular surgery team for left ICA and they agree they feel asymptomatic and recommend outpatient follow-up Continue neurochecks Cardiac monitoring Will defer the rest of the medical management to primary and other specialist For DVT prophylaxis: On heparin drip. Plan discussed with the patient, his daughters who are at bedside and his nurse. Time with Patient: Less than 30
[2023-12-11 18:08] LABS: Glucose,Whole Blood 170 mg/dL (70-110)
[2023-12-11 20:26] LABS: Glucose,Whole Blood 128 mg/dL (70-110)
[2023-12-11] MEDS: ATORVASTATIN 80 MG TAB PO SCH (20:46)
[2023-12-11] MEDS ORDERED: LORazepam 1 MG/0.5 ML VIAL IV PRN (23:33)
[2023-12-12 06:23] LABS: Glucose,Whole Blood 128 mg/dL (70-110)
--- NOTE | 2023-12-12 07:07 | P.PN ---
Subjective Patient is a pleasant 68 years old male with past medical history of diabetes mellitus and prostate cancer Presents because of strokelike signs symptoms with left-sided weakness including arm and leg and left facial droop, patient also fell at home. Patient is awake alert able to talk freely but complaining from severe weakness in his left forearm and hand and to a lesser extent in his left leg. He feels abnormal feeling in his left arm as he is not feeling it. He denies any headache or dizziness but also there is some evidence of left-sided facial droop and deviation of the face to the right side Patient denies chest pain or dyspnea however on admission he had CTA of the head of the neck showing possible occlusions of the pulmonary artery hence CTA of the chest was obtained and was positive for pulmonary embolism of the right upper lo be right middle lobe with opacities suspicious for infarct Patient denies leg pain, coughing blood or hemoptysis, recent surgery. Patient denies chest pain or coughing No change in urine or bowel habits. No fever or chills He states he is currently alcohol or smoking cigarettes for about 2 years ago for now On admission neurologist wants to hold anticoagulation for 24 hours because of his acute stroke Currently patient not receiving IV fluid, currently patient not on aspirin or other antiplatelet medication. Not on anticoagulation Repeat CT of the brain is ordered for 2 PM today 12/11/2023 Patient seen and examined in the ICU Patient is awake alert His left hemiparesis significantly improved, his left upper extremity is almost back to normal as per patient and he is able to use his hand for eating and drinking as he is left-handed. His left facial droop also improved. No more weakness in the left lower extremity. Even the numbness and abnormal sensation in the left upper extremity improved Last night patient was started on aspirin 325 mg and heparin drip after he was cleared for his stroke MRI of the brain is recommended to be done today. Echocardiogram showing ejection fraction 55 to 60%. Patient denies any other new complaint 12/12/2023 Patient today keep improving with his left hemiparesis, no abnormal movements. Sensation abnormalities also improved No headache or dizziness no chest pain or dyspnea. He remains on heparin drip and aspirin 325 mg He had MRI of the brain yesterday showing: Acute/subacute CVA in the right MCA territory with scattered foci in the deep, white matter and a few areas involving the cortex probably the right parietal Echocardiogram with bubble study is requested and is pending Earlier echocardiogram was done showed ejection fraction 55 to 60% Vascular surgery input is appreciated and they recommended outpatient follow-up as the stenosed carotid artery is on the left side while the stroke is on the right side of the brain. Review of systems CONSTITUTIONAL: No fever, no malaise, no fatigue. HEENT: No recent visual problems or hearing problems. Denied any sore throat. CARDIOVASCULAR: No orthopnea, PND, no palpitations, no syncope. PULMONARY: No shortness of breath, no cough, no hemoptysis. GASTROINTESTINAL: No diarrhea, no nausea, no vomiting, no abdominal pain. Normoactive bowel sounds. NEUROLOGICAL: No headaches, no weakness, no numbness. HEMATOLOGICAL: Denies any bleeding or petechiae. Active Medications Generic Name Dose Route Start Last Admin Trade Name Freq PRN Reason Stop Dose Admin Aspirin 325 mg 12/10/23 18:45 12/10/23 19:52 Aspirin 325 Mg Tab PO 325 mg DAILY [facility]ESSE Administration Atorvastatin Calcium 80 mg 12/11/23 21:00 Atorvastatin 80 Mg Tab PO HS JESSE Dextrose/Water 25 ml 12/10/23 03:08 Dextrose 50% Syringe 50 Ml IVP PER PROTOCOL PRN Hypoglycemia Protocol Dextrose/Water 50 ml 12/10/23 03:08 Dextrose 50% Syringe 50 Ml IVP PER PROTOCOL PRN Hypoglycemia Protocol Famotidine 20 mg 12/10/23 09:00 12/10/23 19:53 Famotidine 20 Mg/2 Ml Vial IV 20 mg Q12HR JESSE Administration Heparin Sodium (Porcine) 0 unit 12/10/23 19:26 Heparin Sodium 1,000 Un/Ml (10ml Vl) IV PER PROTOCOL PRN Low PTT Protocol Heparin Sodium/Sodium Chloride 250 mls @ 9.48 mls/hr 12/10/23 19:30 12/11/23 02:37 25,000 unit/ Sodium Chloride IV 15 units/kg/hr .Q24H JESSE 11.85 mls/hr Titration Protocol 12 UNITS/KG/HR Insulin Aspart 0 unit 12/10/23 07:30 12/11/23 07:06 Insulin Aspart (Novolog) 100 Unit/Ml Vial SQ Not Given ACHS JESSE Protocol Lorazepam 1 mg 12/11/23 08:34 Lorazepam 2 Mg/Ml Inj IV ONCE PRN Anxiety Objective - Vital Signs Vital signs: Vital Signs Temp 97.8 F 12/12/23 03:06 Pulse 80 12/12/23 03:06 Resp 12 12/12/23 03:06 BP 139/82 12/12/23 03:06 Pulse Ox 94 L 12/12/23 03:06 FiO2 Intake & Output 12/11/23 12/12/23 12/12/23 18:59 06:59 18:59 Intake Total 1137.395 Output Total 1190 1100 Balance -52.605 -1100 Weight 81.4 kg Intake: Intake, IV Titration 177.395 Amount Heparin Sod,Pork in 0.45% 177.395 NaCl 25,000 unit In 0.45 % NaCl 1 250ml.bag @ 12 UNITS/KG/HR 9.48 mls/hr IV .Q24H [facility] Rx#: [id number] Oral 960 Output: Urine 1190 1100 Other: Voiding Method External Catheter External Catheter # Voids 1 - Exam GENERAL: The patient is alert and oriented x3, not in any acute distress. Well developed, well nourished. HEENT: Pupils are round and equally reacting to light. EOMI. No scleral icterus. No conjunctival pallor. Normocephalic, atraumatic. No pharyngeal erythema. No thyromegaly. CARDIOVASCULAR: S1 and S2 present. No murmurs, rubs, or gallops. PULMONARY: Chest is clear to auscultation, no wheezing , no crackles. ABDOMEN: Soft, nontender, nondistended, normoactive bowel sounds. No palpable organomegaly. MUSCULOSKELETAL: No joint swelling or deformity. EXTREMITIES: No cyanosis, clubbing, or pedal edema. NEUROLOGICAL: Gross neurological examination did not reveal any focal deficits. SKIN: No rashes. no petechiae. - Labs CBC & Chem 7: 12/11/23 01:41 12/10/23 05:38 Labs: Abnormal Lab Results - Last 24 Hours (Table) 12/11/23 12/11/23 12/11/23 Range/Units 08:31 08:31 15:49 APTT 38.1 H 43.8 H (22.0-30.0) sec POC Glucose (mg/dL) (70-110) mg/dL Hemoglobin A1c 6.9 H (<=6.0) % 12/11/23 12/11/23 12/12/23 Range/Units 18:07 20:24 00:31 APTT 64.0 H (22.0-30.0) sec POC Glucose (mg/dL) 170 H 128 H (70-110) mg/dL Hemoglobin A1c (<=6.0) % 12/12/23 Range/Units 06:22 APTT (22.0-30.0) sec POC Glucose (mg/dL) 128 H (70-110) mg/dL Hemoglobin A1c (<=6.0) % Microbiology - Last 24 Hours (Table) 12/09/23 16:48 Blood Culture - Preliminary Blood 12/09/23 16:30 Blood Culture - Preliminary Blood Assessment and Plan Assessment: Acute stroke with left hemiparesis Acute pulmonary embolism with no evidence of right heart strain Right lower extremity deep venous thrombosis, acute Right lung infarct, Differential diagnosis fungal infection and neoplasm Fall at home secondary to above 90% stenosis of the left internal carotid artery, cleared with vascular surgery team for discharge Diabetes mellitus Plan: MRI of the brain was reviewed Aantiplatelet management, patient was started on aspirin 325 mg Patient started on heparin drip. With plan to switch it to oral anticoagulants Echocardiogram with bubble study Vascular surgery recommended outpatient follow-up for left internal carotid artery stenosis Pulmonary team, with management of right pulmonary opacity per pulmonary team. Most likely the infarction related to pulmonary embolism Labs and medication were reviewed.. Continue same treatment. Continue with symptomatic treatment. Resume home medication. Monitor labs and vitals. DVT and GI prophylaxis. Further recommendations as per clinical course of the patient DVT prophylaxis: Heparin GI Prophylaxis: Pepcid PT/OT: Recommended home health care versus inpatient rehab. Rehab team will be consulted Prognosis is guarded
--- NOTE | 2023-12-12 11:27 | P.PN ---
Subjective Progress Note Date: 12/12/23 Principal diagnosis: CVA. Patient is a 68-year-old white male with past medical history significant for diabetes mellitus, prostate cancer status post radiation, former tobacco smoker quitting 2 years ago, and recent COVID infection. Patient was in the kitchen yesterday, he had a fall to the ground, hit his knees. His heard this, and found him on the ground. He could not stand back up by himself. He had slurred speech, left-sided facial droop, and left-sided weakness. 911 was called immediately, and a code stroke was initiated. Patient was transferred to [facility] on ER. Initial NIH score is 6. Noncontrast CT of the brain showed mild ventriculomegaly likely due to central cervical atrophy. Moderate patchy burden of chronic small vessel ischemic disease. No acute intracranial process seen. Follow-up CT angio of the head and neck showed severe, possibly up to 90% proximal left ICA stenosis. Dominant left vertebral artery. No large vessel intracranial arterial occlusion, significant stenosis, or aneurysm change otherwise seen. Patient did receive tenecteplase infusion per protocol. There were some incidental pulmonary findings noted on CTA of the head and neck, which initiated a chest CTA to be performed which showed right upper lung pulmonary emboli visualized in the segmental and subsegmental arterial vasculature. There are airspace opacities in the right upper and right middle lobes, somewhat peripheral with at least 1 area of cavitation. Given the patient's pulmonary emboli, these likely represent pulmonary infarcts. There was also incidentally some pleural plaquing noted. Patient is currently in the intensive care unit, on room air, in no acute distress. He continues to have a left-sided facial droop, with dysarthria, and left-sided hemiparesis. Blood pressure currently 138/70 mmHg. Heart rhythm appears normal sinus on bedside monitor, around 80 bpm. No respiratory distress or tachypnea. Patient denies any infectious symptoms such as fevers, cough, sputum production, chest pain, hemoptysis. Actually denies any pulmonary complaints. He is currently on room air. SpO2 is 93%. He did reportedly have a recent COVID infection back in September, when he was visiting in [place]. He did not go to the hospital at this time. Mode of transportation was driving. Denies any personal history of blood clots. Denies any recent surgeries or trauma. A follow-up venous Doppler did identify a DVT of the distal common femoral vein on the right, with a partial occlusion of the popliteal vein nonocclusive thrombus also felt to be present. CBC unremarkable. No leukocytosis. Baseline coagulation profile includes a PT of 11.3, INR of 1, APTT of 22.9. BMP includes: Sodium 134, potassium 4.4, chloride 101, serum bicarb 26, BUN 17, creatinine 1.11, glucose 128. Lactic acid 1.5. LFTs not elevated. Troponin less than 0.012. EKG on arrival shows normal sinus without any acute ischemic changes. Follow-up echocardiogram is pending. Neurochecks are continuing per protocol. Follow-up CT of the brain without contrast is pending for the morning. Progress note dated December 11, 2023. This is a patient who was seen in consultation yesterday. He presented to the emergency department, having fallen, in his kitchen. The patient apparently could not stand back up, had slurred speech, left facial droop, and left-sided weakness. Patient was seen in the emergency department, and was thought to have a CVA, and, was given tenecteplase. The patient is currently in the ICU, room 266. He is doing much better. The patient is on 2 L of oxygen. He is receiving IV heparin. In addition to the CVA, the patient was discovered to have pulmonary embolism, hence the IV heparin. Currently, he is doing much b miguel as mentioned above. Current laboratory data includes a white count 7.5, hemoglobin 15.7, hematocrit 48.8, platelet count that was normal. PTT is 38.1. Glucose is 105. Blood cultures are currently negative. Brain CT shows similar central cerebral atrophy and moderate burden of chronic small vessel ischemic disease. Nothing acute was noted. MRI reveals an acute/subacute CVA in the middle right MCA territory, with scattered foci in the deep white matter and a few areas involving the cortex, probably the right parietal lobe and insular cortex. Progress note dated December 12, 2023. 68-year-old gentleman seen today in room 354. He was in the intensive care unit yesterday. The patient is currently on 2 L of oxygen. He is receiving IV heparin. He is recovering from CVA, and pulmonary embolism. Clinically, he is much more stable, and of left-sided weakness, it is dramatically improved. Current labs include a PTT of 64, glucose is 128. The labs from yesterday have been reviewed. Blood cultures are negative. Objective - Vital Signs Vital signs: Vital Signs Temp 97.9 F 12/12/23 08:00 Pulse 78 12/12/23 08:39 Resp 16 12/12/23 08:00 BP 124/82 12/12/23 08:00 Pulse Ox 96 12/12/23 08:00 FiO2 Intake & Output 12/11/23 12/12/23 12/12/23 18:59 06:59 18:59 Intake Total 1137.395 241.661 Output Total 1190 1100 Balance -52.605 -1100 241.661 Weight 81.4 kg Intake: Intake, IV Titration 177.395 241.661 Amount Heparin Sod,Pork in 0.45% 177.395 241.661 NaCl 25,000 unit In 0.45 % NaCl 1 250ml.bag @ 12 UNITS/KG/HR 9.48 mls/hr IV .Q24H [facility] Rx#: [id number] Oral 960 Output: Urine 1190 1100 Other: Voiding Method External Catheter External Catheter Toilet Urinal # Voids 1 - Exam No acute distress, oriented 3. Patient is currently on 2 L of oxygen. Saturations are 96%. HEENT examination is grossly unremarkable. Mucous membranes are moist. No oral lesions. Neck supple. Full range of motion. No adenopathy thyromegaly or neck vein distention. Cardiovascular examination reveals regular rhythm rate. S1-S2 normal. No S3 or S4. No discernible murmur noted. Heart rate 78 bpm. Lungs reveal clear breath sounds. Breath sounds are equal bilaterally. No adventitious lung sounds including wheezes rhonchi or crackles. Abdomen soft bowel sounds are heard. No masses or tenderness. Extremities are intact. No cyanosis clubbing or edema. Skin is without rash or lesion. Neurologic examination revealed minimal left-sided changes. - Labs CBC & Chem 7: 12/11/23 01:41 12/10/23 05:38 Labs: Abnormal Lab Results - Last 24 Hours (Table) 12/11/23 12/11/23 12/11/23 Range/Units 08:31 15:49 18:07 APTT 43.8 H (22.0-30.0) sec POC Glucose (mg/dL) 170 H (70-110) mg/dL Hemoglobin A1c 6.9 H (<=6.0) % 12/11/23 12/12/23 12/12/23 Range/Units 20:24 00:31 06:22 APTT 64.0 H (22.0-30.0) sec POC Glucose (mg/dL) 128 H 128 H (70-110) mg/dL Hemoglobin A1c (<=6.0) % Microbiology - Last 24 Hours (Table) 12/09/23 16:48 Blood Culture - Preliminary Blood 12/09/23 16:30 Blood Culture - Preliminary Blood Assessment and Plan Assessment: Acute ischemic CVA, status post TNK, with MRI showing evidence of right-sided infarct, in the area of the MCA. Acute segmental and subsegmental right-sided pulmonary emboli, involving the right upper lobe and right middle lobe. There may also be pulmonary infarction. Deep vein thrombosis, involving the distal common femoral vein on the right, with partial occlusion of the popliteal vein as well. Severe proximal left-sided ICA stenosis. Diabetes mellitus, type II, Recent coronavirus infection. History of prostate cancer, status post radiation. Previous history of tobacco use. Plan: Plan dated December 11, 2023. The patient is seen in the intensive care unit, room 266. He continues to have some left-sided symptomatology, but overall, things have improved. Labs, x- rays, and medications are reviewed. The patient was started on IV heparin for his pulmonary emboli. The results of the MRI are reviewed. We will continue to follow the patient, make recommendations along the way. Patient's overall prognosis is guarded. He has shown great improvement in the last 24 hours. Plan dated December 12, 2023. The patient has been moved out of the intensive care unit, into room 354. He is currently on 2 L of oxygen. He is receiving IV heparin via weight-based protocol. Labs, x-rays, medications are reviewed. The patient's left-sided weakness, is dramatically improved. The patient is getting heparin not only for the CVA, but also for the pulmonary embolism. He did receive tenecteplase. We will continue to follow make recommendations along the way. Prognosis is guarded. Time with Patient: Less than 30
[2023-12-12 12:02] LABS: Glucose,Whole Blood 108 mg/dL (70-110)
--- NOTE | 2023-12-12 13:20 | P.PN ---
Subjective Progress Note Date: 12/12/23 I am following-up with patient and he feels he is getting better. Denies any new neurological issues. Still pending bubble study for 2D echo. Objective - Vital Signs Vital signs: Vital Signs Temp 97.9 F 12/12/23 08:00 Pulse 83 12/12/23 11:56 Resp 16 12/12/23 11:56 BP 153/73 12/12/23 11:56 Pulse Ox 95 12/12/23 11:56 FiO2 Intake & Output 12/11/23 12/12/23 12/12/23 18:59 06:59 18:59 Intake Total 1137.395 241.661 Output Total 1190 1100 Balance -52.605 -1100 241.661 Weight 81.4 kg Intake: Intake, IV Titration 177.395 241.661 Amount Heparin Sod,Pork in 0.45% 177.395 241.661 NaCl 25,000 unit In 0.45 % NaCl 1 250ml.bag @ 12 UNITS/KG/HR 9.48 mls/hr IV .Q24H [facility] Rx#: [id number] Oral 960 Output: Urine 1190 1100 Other: Voiding Method External Catheter External Catheter Toilet Urinal # Voids 1 - Exam GENERAL: The patient is lying in bed and is not in acute distress. NEUROLOGICAL: Higher mental function: The patient is awake, alert, oriented to self, place and time. Patient is following commands. No aphasia and no neglect. Cranial nerves: The pupils are round, equal and reactive to light and accommodation. Visual begum are full to confrontation throughout. Extraocular movement is intact no nystagmus is noted. Facial sensation is normal to touch throughout. The facial strength is mild to moderate left lower facial droop. Has mild dysathria. Hearing is normal bilaterally to hand rub. Tongue is midline and moved [id number] without any difficulty. Shoulder shrug is normal bilaterally. Motor: The strength is left upper and lower extremity is 4+ on left side and no drift. 5 over 5 throughout right side. Normal tone throughout. Cerebellum: Normal finger to nose bilaterally. Sensation: Sensation is normal to touch throughout. Reflexes (right/left): 2+ throughout. Plantars are mute bilaterally. Some of the workup during this hospital visit consisted of: Hemoglobin A1c 6.9. Lipid panel is triglyceride is 180, cholesterol is 184, LDL is 100.3 and HDL is 47. CT of the head which is reported as mild ventriculomegaly likely due to the central cervical atrophy. Moderate patchy burden of chronic small vessel ischemic disease. No acute intracranial abnormality seen. She reviewed the CT and I agree there is no acute or subacute stroke. CT angiography shows possible severe left ICA stenosis as well as possible PE in the right upper lobe. Showed abnormal focal opacity in the right upper lobe and neoplastic etiology and atypical fungal/mycobacterial infection are in the differential. Then later mentioned exam appears positive for segmental branch pulmonary emboli. Moderate atherosclerotic stenosis segment left ICA Carotid duplex is reported as DVT of the distal common femoral vein. Partial occlusion of the popliteal vein nonocclusive thrombus also felt to be present Repeat CT head post 24 TNK: Similar central cerebral atrophy and moderate burden of chronic small vessel ischemic disease. No acute intracranial abnormality seen. No evidence for hemorrhage transformation. MRI of the brain is reported as acute/subacute CVA in the right MCA territory with scattered foci in the deep white matter and a few areas involving the cortex probably at the right parietal and insular cortex. Nonspecific white matter changes, likely secondary to small vessel ischemic disease. I personally reviewed the MRI and I agree there is acute stroke over the right MCA territory. 2D echo: It is reported as normal left ventricle is function. Mild aortic stenosis. Consider transesophageal echocardiogram to definitely rule out cardiac source for CVA. - Labs CBC & Chem 7: 12/11/23 01:41 12/10/23 05:38 Labs: Abnormal Lab Results - Last 24 Hours (Table) 12/11/23 12/11/23 12/11/23 Range/Units 08:31 15:49 18:07 APTT 43.8 H (22.0-30.0) sec POC Glucose (mg/dL) 170 H (70-110) mg/dL Hemoglobin A1c 6.9 H (<=6.0) % 12/11/23 12/12/23 12/12/23 Range/Units 20:24 00:31 06:22 APTT 64.0 H (22.0-30.0) sec POC Glucose (mg/dL) 128 H 128 H (70-110) mg/dL Hemoglobin A1c (<=6.0) % Microbiology - Last 24 Hours (Table) 12/09/23 16:48 Blood Culture - Preliminary Blood 12/09/23 16:30 Blood Culture - Preliminary Blood Assessment and Plan Assessment: This is a 68-year-old gentleman who presents emergency department on 12/09/2023 because of left-sided weakness and slurred speech. A code stroke was activated and the patient was given TNKase yesterday in the afternoon. CT angiography shows possible left ICA stenosis of about 90%. It also seems the patient has a pulmonary embolism and DVT in the lower extremity. Acute stroke (left hemiparesis, left facial droop, subtle dysarhria) post IV TNK. MRI Brain reveal right MCA stroke. Etiology of stroke seems embolic---clinically he is improving compared to presentation but continues to have weakness. Left ICA stenosis on CTA but feel asymptomatic since I would expect right sided weakness. Acute Pulmonary embolism Acute DVT in lower extremity Underlying history of Diabetes mellitus Underlying history of Hypertension History of prostate cancer Former tobacco use and stopped smoking about 2 years ago Plan: Patient is on aspirin 325 daily that was started yesterday post 24-hour IV thrombolytic. He is also on IV heparin drip for his acute PE and DVT. So far no new neurological issues and he feels somewhat better according to the patient and his family members Will pursue with bubble study on the 2D echo and I spoke with floor care technician and they will attempt to pursue today.. Patient is reluctant on getting transesophageal echocardiogram and states if the 2D echo is negative then he will consider NIKKI especially since he is very phobic of having a tube down his throat. Vascular surgery team for left ICA and they agree they feel asymptomatic and recommend outpatient follow-up Continue neurochecks Cardiac monitoring Will defer the rest of the medical management to primary and other specialist For DVT prophylaxis: On heparin drip. Plan discussed with the patient, his who is at bedside and his nurse. Time with Patient: Less than 30
[2023-12-12 16:54] LABS: Glucose,Whole Blood 104 mg/dL (70-110)
--- NOTE | 2023-12-12 17:34 | CA ---
Transthoracic Echo Report Name: Aleksandar Llanes Age: 68 Gender: M : 1955 Exam Date: 12/12/2023 13:11 Exam Location: [facility] Ht (in): 70 Wt (lb): 183 Ordering Physician: Joel Bills MD Attending/Referring Phys: Clip Riveter Cinthia Kiser RDCS Procedure CPT: Indications: eval for pfo Cardiac Hx: Technical Quality: Good Contrast 1: Agitated Saline Total Dose (mL): 10 Contrast 2: Total Dose (mL): MEASUREMENTS (Male / Female) Normal Values FINDINGS Left Ventricle Right Ventricle Right Atrium Left Atrium Mitral Valve Aortic Valve Tricuspid Valve Pulmonic Valve Pericardium Aorta CONCLUSIONS Positive bubble study with large number of bubbles crossing the interatrial septum Previewed by: Dr. Abiodun Chaney MD (Electronically Signed) Final Date: 12 December 2023 17:34
[2023-12-12 20:06] LABS: Glucose,Whole Blood 187 mg/dL (70-110)
[2023-12-13 06:01] LABS: Glucose,Whole Blood 110 mg/dL (70-110)
[2023-12-13 11:29] LABS: Glucose,Whole Blood 104 mg/dL (70-110)
--- NOTE | 2023-12-13 12:04 | P.PN ---
Subjective Progress Note Date: 12/13/23 I am following-up with patient and he is schedule for NIKKI today. Patient stated he feels about the same today. Objective - Vital Signs Vital signs: Vital Signs Temp 98.0 F 12/13/23 08:20 Pulse 79 12/13/23 11:36 Resp 18 12/13/23 11:36 BP 128/78 12/13/23 11:36 Pulse Ox 93 L 12/13/23 11:36 FiO2 21 12/13/23 08:42 Intake & Output 12/12/23 12/13/23 12/13/23 18:59 06:59 18:59 Intake Total 577.077 8192.664 Balance 185.373 1209.664 Intake: Intake, IV Titration 241.661 244.664 Amount Heparin Sod,Pork in 0.45% 241.661 244.664 NaCl 25,000 unit In 0.45 % NaCl 1 250ml.bag @ 12 UNITS/KG/HR 9.48 mls/hr IV .Q24H [facility] Rx#: [id number] Oral 340 780 Other: Voiding Method Toilet Toilet Toilet Urinal Urinal Urinal # Voids 1 1 1 - Exam GENERAL: The patient is lying in bed and is not in acute distress. NEUROLOGICAL: Higher mental function: The patient is awake, alert, oriented to self, place and time. Patient is following commands. No aphasia and no neglect. Cranial nerves: The pupils are round, equal and reactive to light and accommodation. Visual begum are full to confrontation throughout. Extraocular movement is intact no nystagmus is noted. Facial sensation is normal to touch throughout. The facial strength is mild to moderate left lower facial droop. Has mild dysathria. Hearing is normal bilaterally to hand rub. Tongue is midline and moved [id number] without any difficulty. Shoulder shrug is normal bilaterally. Motor: The strength is left upper and lower extremity is 4+ on left side and no drift. 5 over 5 throughout right side. Normal tone throughout. Cerebellum: Normal finger to nose bilaterally. Sensation: Sensation is normal to touch throughout. Reflexes (right/left): 2+ throughout. Plantars are mute bilaterally. Some of the workup during this hospital visit consisted of: Hemoglobin A1c 6.9. Lipid panel is triglyceride is 180, cholesterol is 184, LDL is 100.3 and HDL is 47. CT of the head which is reported as mild ventriculomegaly likely due to the central cervical atrophy. Moderate patchy burden of chronic small vessel ischemic disease. No acute intracranial abnormality seen. She reviewed the CT and I agree there is no acute or subacute stroke. CT angiography shows possible severe left ICA stenosis as well as possible PE in the right upper lobe. Showed abnormal focal opacity in the right upper lobe and neoplastic etiology and atypical fungal/mycobacterial infection are in the differential. Then later mentioned exam appears positive for segmental branch pulmonary emboli. Moderate atherosclerotic stenosis segment left ICA Carotid duplex is reported as DVT of the distal common femoral vein. Partial occlusion of the popliteal vein nonocclusive thrombus also felt to be present Repeat CT head post 24 TNK: Similar central cerebral atrophy and moderate burden of chronic small vessel ischemic disease. No acute intracranial abnormality seen. No evidence for hemorrhage transformation. MRI of the brain is reported as acute/subacute CVA in the right MCA territory with scattered foci in the deep white matter and a few areas involving the cortex probably at the right parietal and insular cortex. Nonspecific white matter changes, likely secondary to small vessel ischemic disease. I personally reviewed the MRI and I agree there is acute stroke over the right MCA territory. 2D echo: It is reported as normal left ventricle is function. Mild aortic stenosis. Consider transesophageal echocardiogram to definitely rule out c ardiac source for CVA. Bubble study D echo: Positive bubble study with large number of bubbles crossing the interatrial septum. - Labs CBC & Chem 7: 12/11/23 01:41 12/10/23 05:38 Labs: Abnormal Lab Results - Last 24 Hours (Table) 12/12/23 12/13/23 Range/Units 20:01 00:03 APTT 62.9 H (22.0-30.0) sec POC Glucose (mg/dL) 187 H (70-110) mg/dL Microbiology - Last 24 Hours (Table) 12/09/23 16:48 Blood Culture - Preliminary Blood 12/09/23 16:30 Blood Culture - Preliminary Blood Assessment and Plan Assessment: This is a 68-year-old gentleman who presents emergency department on 12/09/2023 because of left-sided weakness and slurred speech. A code stroke was activated and the patient was given TNKase yesterday in the afternoon. CT angiography shows possible left ICA stenosis of about 90%. It also seems the patient has a pulmonary embolism and DVT in the lower extremity. Acute stroke (left hemiparesis, left facial droop, subtle dysarhria) post IV TNK. MRI Brain reveal right MCA stroke. Etiology of stroke seems e mbolic---clinically he is improving compared to presentation but continues to have weakness. Has positive PFO with large number of bubble crossing on 2D echo. Left ICA stenosis on CTA but feel asymptomatic since I would expect right sided weakness. Acute Pulmonary embolism Acute DVT in lower extremity Underlying history of Diabetes mellitus Underlying history of Hypertension History of prostate cancer Former tobacco use and stopped smoking about 2 years ago Plan: Patient is on aspirin 325 daily. He is also on IV heparin drip for his acute PE and DVT. So far no new neurological issues and he feels somewhat better according to the patient and his family members Pending NIKKI and is scheduled for today. Recommend closure of PFO. Vascular surgery team for left ICA and they agree they feel asymptomatic and recommend outpatient follow-up Continue neurochecks Cardiac monitoring Will defer the rest of the medical management to primary and other specialist For DVT prophylaxis: On heparin drip. Plan discussed with the patient and his nurse. Dr. Varela will resume neurology service tomorrow A.M. Time with Patient: Less than 30
--- NOTE | 2023-12-13 12:36 | P.CRDCN ---
History of Present Illness Consult date: 12/13/23 Reason for Consult (text): NIKKI, has acute CVA, PE and DVT rule out intra cardiac thrombus History of present illness: This is a 68-year-old male with no previous cardiac history and does not follow with a director of professional services. He has a past medical history of diabetes, COPD, gastroesophageal reflux disease, prostate cancer, remote history of tobacco use. Patient came into the hospital on 12/08 following a fall with left-sided weakness and slurred speech. Patient subsequently diagnosed with acute stroke s/p TNKase, left ICA stenosis, acute pulmonary embolism as well as acute DVT in the lower extremity. We have been asked to evaluate the patient for NIKKI. Patient has been started on aspirin 325 mg daily, Lipitor 80 mg daily. Discussed the p rocedure of NIKKI and patient is agreeable to move forward with this today. He has been NPO. Echocardiogram performed on 12/09/2023 revealed normal LV function, mild aortic stenosis, consider NIKKI to rule out cardiac source of CVA. Limited echocardiogram performed on 12/11 revealed a positive bubble study with large number of bubbles crossing the interatrial septum. Review Of Systems: At the time of my exam: CONSTITUTIONAL: Denies fever or chills. HEENT: Denies blurred vision, vision changes, or eye pain. Denies hemoptysis CARDIOVASCULAR: Denies chest pain. Denies orthopnea. Denies PND. Denies pal pitations RESPIRATORY: Denies shortness of breath. GASTROINTESTINAL: Denies abdominal pain. Denies nausea or vomiting. HEMATOLOGIC: Denies bleeding disorders. GENITOURINARY: Denies any blood in urine. SKIN: Denies puritis. Denies rash. Physical examination: Gen: This is a 68-year-old male in no acute distress VS: reviewed, blood pressure HEENT: Head is atraumatic, normocephalic. Pupils equal, round. Sclerae is anicteric. NECK: Supple. No JVD. LUNGS: Clear to auscultation. No wheezes or rhonchi. No intercostal retractions. HEART: Regular rate and rhythm. No murmur. ABDOMEN: Soft No tenderness. EXTREMITIES: No pedal edema. No calf tenderness. NEUROLOGICAL: Patient is awake, alert and oriented x3. Assessment: Acute/subacute right MCA CVA Left internal carotid artery stenosis, possibly up to 90% proximal Pulmonary embolism Right lower extremity DVT Diabetes mellitus type 2 COPD History of prostate cancer Recent COVID-19 infection Remote history of tobacco use and dependence Plan: Patient will be scheduled for NIKKI today with Dr. Dodson Further recommendations to follow based upon clinical course Thank you kindly for this consultation. Nurse practitioner note has been reviewed, I agree with documented findings and plan of care. Patient was seen and examined. Past Medical History Past Medical History: Diabetes Mellitus, Prostate Disorder History of Any Multi-Drug Resistant Organisms: None Reported Past Surgical History: Appendectomy, Joint Replacement Additional Past Surgical History / Comment(s): L knee Past Psychological History: No Psychological Hx Reported Smoking Status: Former smoker Past Alcohol Use History: Rare Past Drug Use History: None Reported Medications and Allergies Home Medications Medication Instructions Recorded Confirmed Type Empagliflozin/Metformin HCl 1 tab PO DAILY 12/09/23 12/09/23 History [Synjardy Xr 12.5-1,000 mg Tab] Ketoconazole 2% Shampoo [Nizoral] 1 applic TOPICAL MO 12/09/23 12/09/23 History Lansoprazole [Prevacid 24Hr] 15 mg PO DAILY 12/09/23 12/09/23 History Magnesium(Unknown Dose) 1 tab PO DAILY 12/09/23 12/09/23 History Semaglutide [Ozempic] 0.5 mg SQ MO 12/09/23 12/09/23 History Tamsulosin [Flomax] 0.4 mg PO DAILY 12/09/23 12/09/23 History Vitamin B-12(Unknown Dose) 1 tab PO DAILY 12/09/23 12/09/23 History Vitamin D3(Unknown Dose) 1 tab PO DAILY 12/09/23 12/09/23 History tadalafiL 5 mg PO Q2D 12/09/23 12/09/23 History Allergies Allergy/AdvReac Type Severity Reaction Status Date / Time diphenhydramine Allergy Rapid Verified 12/09/23 20:18 [From Benadryl] Heart Rate Physical Exam Vitals: Vital Signs Temp Pulse Resp BP Pulse Ox 12/13/23 03:45 84 18 115/72 93 L 12/12/23 23:54 78 18 123/74 90 L 12/12/23 20:00 97.9 F 73 18 143/71 93 L 12/12/23 15:35 97.6 F 72 18 137/79 94 L 12/12/23 13:42 83 12/12/23 11:56 83 16 153/73 95 12/12/23 08:39 78 Intake and Output 12/12/23 12/13/23 12/13/23 22:59 06:59 14:59 Intake Total 480 784.664 Balance 480 784.664 Intake: Intake, IV Titration 244.664 Amount Heparin Sod,Pork in 0.45% 244.664 NaCl 25,000 unit In 0.45 % NaCl 1 250ml.bag @ 12 UNITS/KG/HR 9.48 mls/hr IV .Q24H [facility] Rx#: [id number] Oral 480 540 Other: Voiding Method Toilet Toilet Urinal Urinal # Voids 1 1 Results 12/11/23 01:41 12/10/23 05:38 Coagulation 12/13/23 Range/Units 00:03 APTT 62.9 H (22.0-30.0) sec Current Medications Generic Name Dose Route Start Last Admin Trade Name Maximq PRN Reason Stop Dose Admin Aspirin 325 mg 12/10/23 18:45 12/12/23 08:44 Aspirin 325 Mg Tab PO 325 mg DAILY [facility] Administration Atorvastatin Calcium 80 mg 12/11/23 21:00 12/12/23 20:23 Atorvastatin 80 Mg Tab PO 80 mg HS [facility] Administration Dextrose/Water 25 ml 12/10/23 03:08 Dextrose 50% Syringe 50 Ml IVP PER PROTOCOL PRN Hypoglycemia Protocol Dextrose/Water 50 ml 12/10/23 03:08 Dextrose 50% Syringe 50 Ml IVP PER PROTOCOL PRN Hypoglycemia Protocol Famotidine 20 mg 12/10/23 09:00 12/12/23 20:23 Famotidine 20 Mg/2 Ml Vial IV 20 mg Q12HR [facility] Administration Heparin Sodium (Porcine) 0 unit 12/10/23 19:26 Heparin Sodium 1,000 Un/Ml (10ml Vl) IV PER PROTOCOL PRN Low PTT Protocol Heparin Sodium/Sodium Chloride 250 mls @ 9.48 mls/hr 12/10/23 19:30 12/13/23 01:02 25,000 unit/ Sodium Chloride IV 19 units/kg/hr .Q24H [facility] 15.01 mls/hr Titration Protocol 12 UNITS/KG/HR Insulin Aspart 0 unit 12/10/23 07:30 12/13/23 05:59 Insulin Aspart (Novolog) 100 Unit/Ml Vial SQ Not Given ACHS [facility] Protocol Lorazepam 1 mg 12/11/23 23:33 Lorazepam 1 Mg/0.5 Ml Vial IV ONCE PRN Anxiety Intake and Output 12/12/23 12/13/23 12/13/23 22:59 06:59 14:59 Intake Total 480 784.664 Balance 480 784.664 Intake: Intake, IV Titration 244.664 Amount Heparin Sod,Pork in 0.45% 244.664 NaCl 25,000 unit In 0.45 % NaCl 1 250ml.bag @ 12 UNITS/KG/HR 9.48 mls/hr IV .Q24H [facility] Rx#: [id number] Oral 480 540 Other: Voiding Method Toilet Toilet Urinal Urinal # Voids 1 1 12/11/23 01:41 12/10/23 05:38
--- NOTE | 2023-12-13 12:43 | P.PN ---
Subjective Progress Note Date: 12/13/23 Principal diagnosis: CVA. Patient is a 68-year-old white male with past medical history significant for diabetes mellitus, prostate cancer status post radiation, former tobacco smoker quitting 2 years ago, and recent COVID infection. Patient was in the kitchen yesterday, he had a fall to the ground, hit his knees. His heard this, and found him on the ground. He could not stand back up by himself. He had slurred speech, left-sided facial droop, and left-sided weakness. 911 was called immediately, and a code stroke was initiated. Patient was transferred to [facility] on ER. Initial NIH score is 6. Noncontrast CT of the brain showed mild ventriculomegaly likely due to central cervical atrophy. Moderate patchy burden of chronic small vessel ischemic disease. No acute intracranial process seen. Follow-up CT angio of the head and neck showed severe, possibly up to 90% proximal left ICA stenosis. Dominant left vertebral artery. No large vessel intracranial arterial occlusion, significant stenosis, or aneurysm change otherwise seen. Patient did receive tenecteplase infusion per protocol. There were some incidental pulmonary findings noted on CTA of the head and neck, which initiated a chest CTA to be performed which showed right upper lung pulmonary emboli visualized in the segmental and subsegmental arterial vasculature. There are airspace opacities in the right upper and right middle lobes, somewhat peripheral with at least 1 area of cavitation. Given the patient's pulmonary emboli, these likely represent pulmonary infarcts. There was also incidentally some pleural plaquing noted. Patient is currently in the intensive care unit, on room air, in no acute distress. He continues to have a left-sided facial droop, with dysarthria, and left-sided hemiparesis. Blood pressure currently 138/70 mmHg. Heart rhythm appears normal sinus on bedside monitor, around 80 bpm. No respiratory distress or tachypnea. Patient denies any infectious symptoms such as fevers, cough, sputum production, chest pain, hemoptysis. Actually denies any pulmonary complaints. He is currently on room air. SpO2 is 93%. He did reportedly have a recent COVID infection back in September, when he was visiting in [place]. He did not go to the hospital at this time. Mode of transportation was driving. Denies any personal history of blood clots. Denies any recent surgeries or trauma. A follow-up venous Doppler did identify a DVT of the distal common femoral vein on the right, with a partial occlusion of the popliteal vein nonocclusive thrombus also felt to be present. CBC unremarkable. No leukocytosis. Baseline coagulation profile includes a PT of 11.3, INR of 1, APTT of 22.9. BMP includes: Sodium 134, potassium 4.4, chloride 101, serum bicarb 26, BUN 17, creatinine 1.11, glucose 128. Lactic acid 1.5. LFTs not elevated. Troponin less than 0.012. EKG on arrival shows normal sinus without any acute ischemic changes. Follow-up echocardiogram is pending. Neurochecks are continuing per protocol. Follow-up CT of the brain without contrast is pending for the morning. Progress note dated December 11, 2023. This is a patient who was seen in consultation yesterday. He presented to the emergency department, having fallen, in his kitchen. The patient apparently could not stand back up, had slurred speech, left facial droop, and left-sided weakness. Patient was seen in the emergency department, and was thought to have a CVA, and, was given tenecteplase. The patient is currently in the ICU, room 266. He is doing much better. The patient is on 2 L of oxygen. He is receiving IV heparin. In addition to the CVA, the patient was discovered to have pulmonary embolism, hence the IV heparin. Currently, he is doing much b miguel as mentioned above. Current laboratory data includes a white count 7.5, hemoglobin 15.7, hematocrit 48.8, platelet count that was normal. PTT is 38.1. Glucose is 105. Blood cultures are currently negative. Brain CT shows similar central cerebral atrophy and moderate burden of chronic small vessel ischemic disease. Nothing acute was noted. MRI reveals an acute/subacute CVA in the middle right MCA territory, with scattered foci in the deep white matter and a few areas involving the cortex, probably the right parietal lobe and insular cortex. Progress note dated December 12, 2023. 68-year-old gentleman seen today in room 354. He was in the intensive care unit yesterday. The patient is currently on 2 L of oxygen. He is receiving IV heparin. He is recovering from CVA, and pulmonary embolism. Clinically, he is much more stable, and of left-sided weakness, it is dramatically improved. Current labs include a PTT of 64, glucose is 128. The labs from yesterday have been reviewed. Blood cultures are negative. Progress note dated December 13, 2023. 68-year-old male seen today in room 354. The patient is scheduled to have a transesophageal echocardiogram today. The patient had a bubble study, which suggested a patent foramen ovale. He is on room air. He is not receiving any IV fluids. He is receiving IV heparin. The patient was initially admitted with a CVA, involving the left side of his body, and pulmonary embolism. No new laboratory data today other than a glucose of 104. Objective - Vital Signs Vital signs: Vital Signs Temp 98.0 F 12/13/23 08:20 Pulse 79 12/13/23 11:36 Resp 18 12/13/23 11:36 BP 128/78 12/13/23 11:36 Pulse Ox 93 L 12/13/23 11:36 FiO2 21 12/13/23 08:42 Intake & Output 12/12/23 12/13/23 12/13/23 18:59 06:59 18:59 Intake Total 227.719 0821.664 Balance 560.895 1868.664 Intake: Intake, IV Titration 241.661 244.664 Amount Heparin Sod,Pork in 0.45% 241.661 244.664 NaCl 25,000 unit In 0.45 % NaCl 1 250ml.bag @ 12 UNITS/KG/HR 9.48 mls/hr IV .Q24H [facility] Rx#: [id number] Oral [id number] Other: Voiding Method Toilet Toilet Toilet Urinal Urinal Urinal # Voids 1 1 1 - Exam No acute distress, oriented 3. Patient is currently on room air. Saturations are 93 %. HEENT examination is grossly unremarkable. Mucous membranes are moist. No oral lesions. Neck supple. Full range of motion. No adenopathy thyromegaly or neck vein distention. Cardiovascular examination reveals regular rhythm rate. S1-S2 normal. No S3 or S4. No discernible murmur noted. Heart rate 81 bpm. Lungs reveal clear breath sounds. Breath sounds are equal bilaterally. No adventitious lung sounds including wheezes rhonchi or crackles. Abdomen soft bowel sounds are heard. No masses or tenderness. Extremities are intact. No cyanosis clubbing or edema. Skin is without rash or lesion. Neurologic examination revealed minimal left-sided changes. - Labs CBC & Chem 7: 12/11/23 01:41 12/10/23 05:38 Labs: Abnormal Lab Results - Last 24 Hours (Table) 12/12/23 12/13/23 Range/Units 20:01 00:03 APTT 62.9 H (22.0-30.0) sec POC Glucose (mg/dL) 187 H (70-110) mg/dL Microbiology - Last 24 Hours (Table) 12/09/23 16:48 Blood Culture - Preliminary Blood 12/09/23 16:30 Blood Culture - Preliminary Blood Assessment and Plan Assessment: Acute ischemic CVA, status post TNK, with MRI showing evidence of right-sided infarct, in the area of the MCA. Acute segmental and subsegmental right-sided pulmonary emboli, involving the right upper lobe and right middle lobe. There may also be pulmonary infarction. Deep vein thrombosis, involving the distal common femoral vein on the right, with partial occlusion of the popliteal vein as well. Patent foramen ovale, seen on bubble study. Severe proximal left-sided ICA stenosis. Diabetes mellitus, type II, Recent coronavirus infection. History of prostate cancer, status post radiation. Previous history of tobacco use. Plan: Plan dated December 11, 2023. The patient is seen in the intensive care unit, room 266. He continues to have some left-sided symptomatology, but overall, things have improved. Labs, x- rays, and medications are reviewed. The patient was started on IV heparin for his pulmonary emboli. The results of the MRI are reviewed. We will continue to follow the patient, make recommendations along the way. Patient's overall prognosis is guarded. He has shown great improvement in the last 24 hours. Plan dated December 12, 2023. The patient has been moved out of the intensive care unit, into room 354. He is currently on 2 L of oxygen. He is receiving IV heparin via weight-based protocol. Labs, x-rays, medications are reviewed. The patient's left-sided weakness, is dramatically improved. The patient is getting heparin not only for the CVA, but also for the pulmonary embolism. He did receive tenecteplase. We will continue to follow make recommendations along the way. Prognosis is guarded. Plan dated December 13, 2023. The patient is seen today in room 354. He is on room air. He continues to receive IV heparin. The patient had a bubble study was suggested a patent foramen ovale. The patient is scheduled for transesophageal echocardiogram today. Additional recommendations and suggestions are forthcoming. We will continue to follow the patient, make recommendations along the way. Patient was diagnosed as having a right-sided CVA with left-sided weakness. He did receive tenecteplase. It was also discovered to have a pulmonary embolism. Time with Patient: Less than 30
[2023-12-13] MEDS: fentaNYL (PF) 50 MCG/ML 2 ML AMP IVP ONE (12:45)
[2023-12-13] MEDS: BENZOCAINE SPRAY 1 CAN TOPICAL ONE (12:45)
[2023-12-13] MEDS: MIDAZOLAM 2 MG/2 ML VIAL IVP ONE (12:45)
--- NOTE | 2023-12-13 12:57 | P.PCN ---
Date of Procedure: 12/13/23 Operative Findings: TRANSESOPHAGEAL ECHOCARDIOGRAM STEREO EQUIPMENT REPAIRER: MODESTO VALENZUELA MD, RPVI INDICATION: Stroke SEDATION: Conscious sedation COMPLICATION: None LEVEL OF SEDATION Moderate with sedation length of 12 minutes PROCEDURE DESCRIPTION: After obtaining an informed consent, the patient was brought to transesophageal echocardiogram room. Pulse oximetry and heart monitors were attached to the patient. The patient throat was sprayed using lidocaine. The patient was turned into left lateral position. After that a bite guard was placed. After an appropriate conscious sedation was initiated, the transesophageal echocardiogram was advanced through a bite guard into the mid esophagus. A 2-D echocardiogram images, color Doppler images, continuous wave images, pulse-wave images, of various cardiac structure were performed. After that the transesophageal echocardiogram probe was advanced into the stomach and fixed to obtain transgastric view was. The probe was brought into the mid esophagus. Inter-atrial septum was interrogated using 2D images, color Doppler images, and then contrast study. After that transesophageal echocardiogram was withdrawn out and upon withdrawing the descending thoracic aorta all the way up to the arch was evaluated. FINDING: [] CONCLUSION: 1. Aneurysmal interatrial septum with a large patent [place] ov[place] (PFO) and right to left shunt 2. Intact left atrial appendage with no thrombus 3. Overall normal intracardiac valves beside aortic sclerosis 4. Normal LV systolic function 5. No evidence of pericardial effusion
[2023-12-13] MEDS: fentaNYL (PF) 50 MCG/ML 2 ML AMP ONE (15:13)
[2023-12-13 16:30] LABS: Glucose,Whole Blood 121 mg/dL (70-110)
[2023-12-13 20:40] LABS: Glucose,Whole Blood 114 mg/dL (70-110)
--- NOTE | 2023-12-13 22:48 | P.PN ---
Subjective Progress Note Date: 12/13/23 68 years old male with past medical history of diabetes mellitus and prostate cancer Presents because of strokelike signs symptoms with left-sided weakness including arm and leg and left facial droop, patient also fell at home. Patient is awake alert able to talk freely but complaining from severe weakness in his left forearm and hand and to a lesser extent in his left leg. He feels abnormal feeling in his left arm as he is not feeling it. He denies any headache or dizziness but also there is some evidence of left- sided facial droop and deviation of the face to the right side Patient denies chest pain or dyspnea however on admission he had CTA of the head of the neck showing possible occlusions of the pulmonary artery hence CTA of the chest was obtained and was positive for pulmonary embolism of the right upper lobe right middle lobe with opacities suspicious for infarct Patient denies leg pain, coughing blood or hemoptysis, recent surgery. Patient denies chest pain or coughing No change in urine or bowel habits. No fever or chills He states he is currently alcohol or smoking cigarettes for about 2 years ago for now On admission neurologist wants to hold anticoagulation for 24 hours because of his acute stroke Currently patient not receiving IV fluid, currently patient not on aspirin or other antiplatelet medication. Not on anticoagulation Repeat CT of the brain is ordered for 2 PM today Patient denies any other new complaint 12/13/2023 Patient today keep improving with his left hemiparesis, no abnormal movements. Sensation abnormalities also improved No headache or dizziness no chest pain or dyspnea. He remains on heparin drip and aspirin 325 mg He had MRI of the brain yesterday showing: Acute/subacute CVA in the right MCA territory with scattered foci in the deep, white matter and a few areas involving the cortex probably the right parietal Echocardiogram with bubble study is requested and is pending Earlier echocardiogram was done showed ejection fraction 55 to 60% Vascular surgery input is appreciated and they recommended outpatient follow-up as the stenosed carotid artery is on the left side while the stroke is on the right side of the brain. Objective - Vital Signs Vital signs: Vital Signs Temp 98.0 F 12/13/23 08:20 Pulse 79 12/13/23 11:36 Resp 18 12/13/23 11:36 BP 128/78 12/13/23 11:36 Pulse Ox 93 L 12/13/23 11:36 FiO2 21 12/13/23 08:42 Intake & Output 12/12/23 12/13/23 12/13/23 18:59 06:59 18:59 Intake Total 564.245 1613.664 Balance 865.714 8450.664 Intake: Intake, IV Titration 241.661 244.664 Amount Heparin Sod,Pork in 0.45% 241.661 244.664 NaCl 25,000 unit In 0.45 % NaCl 1 250ml.bag @ 12 UNITS/KG/HR 9.48 mls/hr IV .Q24H [facility] Rx#: [id number] Oral [id number] Other: Voiding Method Toilet Toilet Toilet Urinal Urinal Urinal # Voids 1 1 1 - Exam - Exam GENERAL: The patient is alert and oriented x3, not in any acute distress. Well developed, well nourished. HEENT: Pupils are round and equally reacting to light. EOMI. No scleral icterus. No conjunctival pallor. Normocephalic, atraumatic. No pharyngeal erythema. No thyromegaly. CARDIOVASCULAR: S1 and S2 present. No murmurs, rubs, or gallops. PULMONARY: Chest is clear to auscultation, no wheezing , no crackles. ABDOMEN: Soft, nontender, nondistended, normoactive bowel sounds. No palpable organomegaly. MUSCULOSKELETAL: No joint swelling or deformity. EXTREMITIES: No cyanosis, clubbing, or pedal edema. NEUROLOGICAL: Gross neurological examination did not reveal any focal deficits. SKIN: No rashes. no petechiae. - Labs CBC & Chem 7: 12/11/23 01:41 12/10/23 05:38 Labs: Abnormal Lab Results - Last 24 Hours (Table) 12/12/23 12/13/23 Range/Units 20:01 00:03 APTT 62.9 H (22.0-30.0) sec POC Glucose (mg/dL) 187 H (70-110) mg/dL Microbiology - Last 24 Hours (Table) 12/09/23 16:48 Blood Culture - Preliminary Blood 12/09/23 16:30 Blood Culture - Preliminary Blood Assessment and Plan Assessment: Assessment and Plan Assessment: Acute stroke with left hemiparesis Acute pulmonary embolism with no evidence of right heart strain Right lower extremity deep venous thrombosis, acute Right lung infarct, Differential diagnosis fungal infection and neoplasm Fall at home secondary to above 90% stenosis of the left internal carotid artery, cleared with vascular surgery team for discharge Diabetes mellitus Plan: MRI of the brain was reviewed Aantiplatelet management, patient was started on aspirin 325 mg Patient started on heparin drip. With plan to switch it to oral anticoagulants Echocardiogram with bubble study Vascular surgery recommended outpatient follow-up for left internal carotid artery stenosis Pulmonary team, with management of right pulmonary opacity per pulmonary team. Most likely the infarction related to pulmonary embolism Labs and medication were reviewed.. Continue same treatment. Continue with s ymptomatic treatment. Resume home medication. Monitor labs and vitals. DVT and GI prophylaxis. Further recommendations as per clinical course of the patient DVT prophylaxis: Heparin GI Prophylaxis: Pepcid PT/OT: Recommended home health care versus inpatient rehab. Rehab team will be consulted Prognosis is guarded
[2023-12-14 06:07] LABS: Glucose,Whole Blood 114 mg/dL (70-110)
--- NOTE | 2023-12-14 08:43 | P.PN ---
Subjective Progress Note Date: 12/14/23 Principal diagnosis: Stroke The patient is a pleasant 68-year-old gentleman with a past medical history significant for recent diagnosis of stroke secondary to paradoxical embolization with recent diagnosis of right lower extremity DVT and patent foramen ovale as well as hypertension and dyslipidemia and carotid atherosclerosis and multiple comorbid conditions. He underwent yesterday transesophageal echocardiogram and that revealed aneurysmal interatrial septum with large PFO December 14, 2023 The patient was seen and evaluated this morning with he is asymptomatic. He is hemodynamically stable. He underwent yesterday NIKKI and that showed large PFO with aneurysmal interatrial septum. With that and with a DVT I am going to schedule the patient to undergo percutaneous closure of PFO hopefully this coming Saturday. Currently he is on anticoagulation we will continue that. The examination is remarkable for regular rhythm with clear breathing sounds bilaterally and no carotid bruit and no edema was noted Assessment Paradoxical embolization with stroke Right lower extremity DVT Aneurysmal interatrial septum with PFO Multiple comorbid conditions Plan Proceed with PFO closure Continue oral anticoagulation Switch to oral anticoagulation after the procedure on Saturday Follow-up with the patient Objective - Vital Signs Vital signs: Vital Signs Temp 97.8 F 12/14/23 08:00 Pulse 71 12/14/23 08:00 Resp 17 12/14/23 08:00 BP 114/71 12/14/23 08:00 Pulse Ox 94 L 12/14/23 08:00 FiO2 21 12/13/23 08:42 Intake & Output 12/13/23 12/14/23 12/14/23 18:59 06:59 18:59 Intake Total 347.736 642.318 Balance 347.736 642.318 Intake: Intake, IV Titration 229.736 102.318 Amount Heparin Sod,Pork in 0.45% 229.736 102.318 NaCl 25,000 unit In 0.45 % NaCl 1 250ml.bag @ 12 UNITS/KG/HR 9.48 mls/hr IV .Q24H [facility] Rx#: [id number] Oral [id number] Other: Voiding Method Toilet Toilet Urinal Urinal # Voids 3 1 - Labs CBC & Chem 7: 12/11/23 01:41 12/10/23 05:38 Labs: Abnormal Lab Results - Last 24 Hours (Table) 12/13/23 12/13/23 12/13/23 Range/Units 16:23 20:39 23:38 APTT 61.3 H (22.0-30.0) sec POC Glucose (mg/dL) 121 H 114 H (70-110) mg/dL 12/14/23 Range/Units 06:05 APTT (22.0-30.0) sec POC Glucose (mg/dL) 114 H (70-110) mg/dL Microbiology - Last 24 Hours (Table) 12/09/23 16:48 Blood Culture - Preliminary Blood 12/09/23 16:30 Blood Culture - Preliminary Blood
[2023-12-14] MEDS: bisacodyL 5 MG TABLET.DR PO PRN (09:46)
[2023-12-14 11:56] LABS: Glucose,Whole Blood 172 mg/dL (70-110)
[2023-12-14] MEDS: TAMSULOSIN 0.4 MG CAP.ER.24H PO SCH (12:29)
[2023-12-14] MEDS: PANTOPRAZOLE 40 MG TABLET PO SCH (12:29)
--- NOTE | 2023-12-14 12:41 | P.PN ---
Subjective Progress Note Date: 12/14/23 Principal diagnosis: CVA. Patient is a 68-year-old white male with past medical history significant for diabetes mellitus, prostate cancer status post radiation, former tobacco smoker quitting 2 years ago, and recent COVID infection. Patient was in the kitchen yesterday, he had a fall to the ground, hit his knees. His heard this, and found him on the ground. He could not stand back up by himself. He had slurred speech, left-sided facial droop, and left-sided weakness. 911 was called immediately, and a code stroke was initiated. Patient was transferred to [facility] on ER. Initial NIH score is 6. Noncontrast CT of the brain showed mild ventriculomegaly likely due to central cervical atrophy. Moderate patchy burden of chronic small vessel ischemic disease. No acute intracranial process seen. Follow-up CT angio of the head and neck showed severe, possibly up to 90% proximal left ICA stenosis. Dominant left vertebral artery. No large vessel intracranial arterial occlusion, significant stenosis, or aneurysm change otherwise seen. Patient did receive tenecteplase infusion per protocol. There were some incidental pulmonary findings noted on CTA of the head and neck, which initiated a chest CTA to be performed which showed right upper lung pulmonary emboli visualized in the segmental and subsegmental arterial vasculature. There are airspace opacities in the right upper and right middle lobes, somewhat peripheral with at least 1 area of cavitation. Given the patient's pulmonary emboli, these likely represent pulmonary infarcts. There was also incidentally some pleural plaquing noted. Patient is currently in the intensive care unit, on room air, in no acute distress. He continues to have a left-sided facial droop, with dysarthria, and left-sided hemiparesis. Blood pressure currently 138/70 mmHg. Heart rhythm appears normal sinus on bedside monitor, around 80 bpm. No respiratory distress or tachypnea. Patient denies any infectious symptoms such as fevers, cough, sputum production, chest pain, hemoptysis. Actually denies any pulmonary complaints. He is currently on room air. SpO2 is 93%. He did reportedly have a recent COVID infection back in September, when he was visiting in [place]. He did not go to the hospital at this time. Mode of transportation was driving. Denies any personal history of blood clots. Denies any recent surgeries or trauma. A follow-up venous Doppler did identify a DVT of the distal common femoral vein on the right, with a partial occlusion of the popliteal vein nonocclusive thrombus also felt to be present. CBC unremarkable. No leukocytosis. Baseline coagulation profile includes a PT of 11.3, INR of 1, APTT of 22.9. BMP includes: Sodium 134, potassium 4.4, chloride 101, serum bicarb 26, BUN 17, creatinine 1.11, glucose 128. Lactic acid 1.5. LFTs not elevated. Troponin less than 0.012. EKG on arrival shows normal sinus without any acute ischemic changes. Follow-up echocardiogram is pending. Neurochecks are continuing per protocol. Follow-up CT of the brain without contrast is pending for the morning. Progress note dated December 11, 2023. This is a patient who was seen in consultation yesterday. He presented to the emergency department, having fallen, in his kitchen. The patient apparently could not stand back up, had slurred speech, left facial droop, and left-sided weakness. Patient was seen in the emergency department, and was thought to have a CVA, and, was given tenecteplase. The patient is currently in the ICU, room 266. He is doing much better. The patient is on 2 L of oxygen. He is receiving IV heparin. In addition to the CVA, the patient was discovered to have pulmonary embolism, hence the IV heparin. Currently, he is doing much b miguel as mentioned above. Current laboratory data includes a white count 7.5, hemoglobin 15.7, hematocrit 48.8, platelet count that was normal. PTT is 38.1. Glucose is 105. Blood cultures are currently negative. Brain CT shows similar central cerebral atrophy and moderate burden of chronic small vessel ischemic disease. Nothing acute was noted. MRI reveals an acute/subacute CVA in the middle right MCA territory, with scattered foci in the deep white matter and a few areas involving the cortex, probably the right parietal lobe and insular cortex. Progress note dated December 12, 2023. 68-year-old gentleman seen today in room 354. He was in the intensive care unit yesterday. The patient is currently on 2 L of oxygen. He is receiving IV heparin. He is recovering from CVA, and pulmonary embolism. Clinically, he is much more stable, and of left-sided weakness, it is dramatically improved. Current labs include a PTT of 64, glucose is 128. The labs from yesterday have been reviewed. Blood cultures are negative. Progress note dated December 13, 2023. 68-year-old male seen today in room 354. The patient is scheduled to have a transesophageal echocardiogram today. The patient had a bubble study, which suggested a patent foramen ovale. He is on room air. He is not receiving any IV fluids. He is receiving IV heparin. The patient was initially admitted with a CVA, involving the left side of his body, and pulmonary embolism. No new laboratory data today other than a glucose of 104. Progress note dated December 14, 2023. 68-year-old male seen today room 354. The patient had a transesophageal echocardiogram done yesterday which revealed a large patent foramen ovale with a right to left shunt. The patient is apparently going to have a patch repair, done early next week. Currently, he is on room air. Is not receiving any IV fluids. He has no complaints. He denies any shortness of breath, cough, wheezing, chest tightness, or phlegm production. He also denies any chest pain or pressure. No new labs today other than a glucose of 172. Objective - Vital Signs Vital signs: Vital Signs Temp 97.8 F 12/14/23 08:00 Pulse 71 12/14/23 08:00 Resp 17 12/14/23 08:00 BP 114/71 12/14/23 08:00 Pulse Ox 94 L 12/14/23 08:00 FiO2 21 12/13/23 08:42 Intake & Output 12/13/23 12/14/23 12/14/23 18:59 06:59 18:59 Intake Total 347.736 642.318 118 Balance 347.736 642.318 118 Intake: Intake, IV Titration 229.736 102.318 Amount Heparin Sod,Pork in 0.45% 229.736 102.318 NaCl 25,000 unit In 0.45 % NaCl 1 250ml.bag @ 12 UNITS/KG/HR 9.48 mls/hr IV .Q24H [facility] Rx#: [id number] Oral 118 540 118 Other: Voiding Method Toilet Toilet Urinal Urinal # Voids 3 1 1 - Exam No acute distress, oriented 3. Patient is currently on room air. Saturations are 95 %. HEENT examination is grossly unremarkable. Mucous membranes are moist. No oral lesions. Neck supple. Full range of motion. No adenopathy thyromegaly or neck vein distention. Cardiovascular examination reveals regular rhythm rate. S1-S2 normal. No S3 or S4. No discernible murmur noted. Heart rate 71 bpm. Lungs reveal clear breath sounds. Breath sounds are equal bilaterally. No adve ntitious lung sounds including wheezes rhonchi or crackles. Abdomen soft bowel sounds are heard. No masses or tenderness. Extremities are intact. No cyanosis clubbing or edema. Skin is without rash or lesion. Neurologic examination revealed minimal left-sided changes. - Labs CBC & Chem 7: 12/11/23 01:41 12/10/23 05:38 Labs: Abnormal Lab Results - Last 24 Hours (Table) 12/13/23 12/13/23 12/13/23 Range/Units 16:23 20:39 23:38 APTT 61.3 H (22.0-30.0) sec POC Glucose (mg/dL) 121 H 114 H (70-110) mg/dL 12/14/23 12/14/23 Range/Units 06:05 11:45 APTT (22.0-30.0) sec POC Glucose (mg/dL) 114 H 172 H (70-110) mg/dL Assessment and Plan Assessment: Acute ischemic CVA, status post TNK, with MRI showing evidence of right-sided infarct, in the area of the MCA. Acute segmental and subsegmental right-sided pulmonary emboli, involving the right upper lobe and right middle lobe. There may also be pulmonary infarction. Deep vein thrombosis, involving the distal common femoral vein on the right, with partial occlusion of the popliteal vein as well. Patent foramen ovale, with a right to left shunt. Severe proximal left-sided ICA stenosis. Diabetes mellitus, type II, Recent coronavirus infection. History of prostate cancer, status post radiation. Previous history of tobacco use. Plan: Plan dated December 11, 2023. The patient is seen in the intensive care unit, room 266. He continues to have some left-sided symptomatology, but overall, things have improved. Labs, x- rays, and medications are reviewed. The patient was started on IV heparin for his pulmonary emboli. The results of the MRI are reviewed. We will continue to follow the patient, make recommendations along the way. Patient's overall prognosis is guarded. He has shown great improvement in the last 24 hours. Plan dated December 12, 2023. The patient has been moved out of the intensive care unit, into room 354. He is currently on 2 L of oxygen. He is receiving IV heparin via weight-based protocol. Labs, x-rays, medications are reviewed. The patient's left-sided weakness, is dramatically improved. The patient is getting heparin not only for the CVA, but also for the pulmonary embolism. He did receive tenecteplase. We will continue to follow make recommendations along the way. Prognosis is guarded. Plan dated December 13, 2023. The patient is seen today in room 354. He is on room air. He continues to receive IV heparin. The patient had a bubble study was suggested a patent foramen ovale. The patient is scheduled for transesophageal echocardiogram today. Additional recommendations and suggestions are forthcoming. We will continue to follow the patient, make recommendations along the way. Patient was diagnosed as having a right-sided CVA with left-sided weakness. He did receive tenecteplase. It was also discovered to have a pulmonary embolism. Plan dated December 14, 2023. The patient is seen today in room 354. He is currently on room air. No fluids. The patient's bubble study suggested a patent foramen ovale. The patient had a transesophageal echocardiogram, which confirmed a patent foramen ovale, and a right to left shunt. The patient will apparently have a patch repair done early next week. Labs, x-rays, medications are reviewed. No additional recommendations are made. We will continue to follow. The patient does continue on IV heparin. Prognosis is guarded. Time with Patient: Less than 30
--- NOTE | 2023-12-14 12:59 | P.CONS ---
History of Present Illness - Reason for Consult Consult date: 12/13/23 - History of Present Illness The patient is a 68-year-old M with PMH of hypertension, diabetes mellitus who presented to the ED with left-sided weakness and slurred speech. A code stroke was activated in the ED team. Patient received CT of the head which was reported as mild ventriculomegaly likely due to atrophy. Moderate patchy burden of chronic small vessel ischemic disease. No acute intracranial abnormality seen. CT angiography shows possible severe left ICA stenosis as well as possible PE in the right upper lobe. Showed abnormal focal opacity in the right upper lobe and neoplastic etiology and atypical fungal/mycobacterial infection are in the differential. Then later mentioned exam appears positive for segmental branch pulmonary emboli. Moderate atherosclerotic stenosis segment left ICA He was given TNK in the ED. His duplex is reported as DVT of the distal common femoral vein. Partial occlusion of the popliteal vein nonocclusive thrombus also felt to be present He lives in a multi level home with his . Previously indepednent and driving. at bedside. She is pleased with his improvement. She is comfortable taking him home in current condition.Patient denying any c/p or sob. Past Medical History Past Medical History: Diabetes Mellitus, Prostate Disorder History of Any Multi-Drug Resistant Organisms: None Reported Past Surgical History: Appendectomy, Joint Replacement Additional Past Surgical History / Comment(s): L knee Past Psychological History: No Psychological Hx Reported Smoking Status: Former smoker Past Alcohol Use History: Rare Past Drug Use History: None Reported Medications and Allergies Home Medications Medication Instructions Recorded Confirmed Type Empagliflozin/Metformin HCl 1 tab PO DAILY 12/09/23 12/09/23 History [Synjardy Xr 12.5-1,000 mg Tab] Ketoconazole 2% Shampoo [Nizoral] 1 applic TOPICAL MO 12/09/23 12/09/23 History Lansoprazole [Prevacid 24Hr] 15 mg PO DAILY 12/09/23 12/09/23 History Magnesium(Unknown Dose) 1 tab PO DAILY 12/09/23 12/09/23 History Semaglutide [Ozempic] 0.5 mg SQ MO 12/09/23 12/09/23 History Tamsulosin [Flomax] 0.4 mg PO DAILY 12/09/23 12/09/23 History Vitamin B-12(Unknown Dose) 1 tab PO DAILY 12/09/23 12/09/23 History Vitamin D3(Unknown Dose) 1 tab PO DAILY 12/09/23 12/09/23 History tadalafiL 5 mg PO Q2D 12/09/23 12/09/23 History Allergies Allergy/AdvReac Type Severity Reaction Status Date / Time diphenhydramine Allergy Rapid Verified 12/09/23 20:18 [From Benadryl] Heart Rate Physical Exam Vitals: Vital Signs Temp Pulse Resp BP Pulse Ox FiO2 12/13/23 09:36 80 18 12/13/23 08:42 92 L 21 12/13/23 08:20 98.0 F 80 18 126/74 92 L 12/13/23 03:45 84 18 115/72 93 L 12/12/23 23:54 78 18 123/74 90 L 12/12/23 20:00 97.9 F 73 18 143/71 93 L 12/12/23 15:35 97.6 F 72 18 137/79 94 L 12/12/23 13:42 83 12/12/23 11:56 83 16 153/73 95 Intake and Output 12/12/23 12/13/23 12/13/23 22:59 06:59 14:59 Intake Total 480 784.664 Balance 480 784.664 Intake: Intake, IV Titration 244.664 Amount Heparin Sod,Pork in 0.45% 244.664 NaCl 25,000 unit In 0.45 % NaCl 1 250ml.bag @ 12 UNITS/KG/HR 9.48 mls/hr IV .Q24H [facility] Rx#: [id number] Oral 480 540 Other: Voiding Method Toilet Toilet Toilet Urinal Urinal Urinal # Voids 1 1 General: Well appearing, well nourished, in no distress. Head: Normocephalic, atraumatic Eyes: EOM intact, PERRL Neck: Supple, without lesions Skin: No rash, or skin lesion in exposed areas of skin CV:No cyanosis or peripheral edema Respiratory: No audible wheezing or increased respiratory effort, on NC Abdomen: Non-distended and without guarding. Extremities:No cyanosis or edema, dorsalis pedis pulses intact b/l Musculoskeletal: Manual Muscle Testing 5/5 RUE and RLE, 4+ LUE and LLE Neurologic: CN 2-12 normal. Sensation to pin prick symmetric in bilateral upper and lower extremities Psychiatric: normal mood and affect. Results CBC & Chem 7: 12/11/23 01:41 12/10/23 05:38 Labs: Abnormal Lab Results - Last 24 Hours (Table) 12/12/23 12/13/23 Range/Units 20:01 00:03 APTT 62.9 H (22.0-30.0) sec POC Glucose (mg/dL) 187 H (70-110) mg/dL Microbiology - Last 24 Hours (Table) 12/09/23 16:48 Blood Culture - Preliminary Blood 12/09/23 16:30 Blood Culture - Preliminary Blood Assessment and Plan Assessment: This is a 68-year-old M with left-sided weakness and slurred speech. Acute CVA in the right MCA territory Bubble study D echo: Positive bubble study with large number of bubbles crossing the interatrial septum. -neurology following, cardiology following -PT/OT- Ambulating 150 feet RW mod IMod I for bed mobility, transfers and ADLs Patient is ok to go home with supervision / assistance from with HHC. Recommend RW Discussed plan with and daughter. Acute segmental and subsegmental right-sided pulmonary emboli, involving the right upper lobe and right middle lobe. -on iv heparin gtt Deep vein thrombosis, involving the distal common femoral vein on the right, with partial occlusion of the popliteal vein Severe proximal left-sided ICA stenosis DM 2 Thank you for consulting our services Jo Robles MD
--- NOTE | 2023-12-14 15:35 | P.PN ---
Subjective Progress Note Date: 12/14/23 68 years old male with past medical history of diabetes mellitus and prostate cancer Presents because of strokelike signs symptoms with left-sided weakness including arm and leg and left facial droop, patient also fell at home. Patient is awake alert able to talk freely but complaining from severe weakness in his left forearm and hand and to a lesser extent in his left leg. He feels abnormal feeling in his left arm as he is not feeling it. He denies any headache or dizziness but also there is some evidence of left- sided facial droop and deviation of the face to the right side Patient denies chest pain or dyspnea however on admission he had CTA of the head of the neck showing possible occlusions of the pulmonary artery hence CTA of the chest was obtained and was positive for pulmonary embolism of the right upper lobe right middle lobe with opacities suspicious for infarct Patient denies leg pain, coughing blood or hemoptysis, recent surgery. Patient denies chest pain or coughing No change in urine or bowel habits. No fever or chills He states he is currently alcohol or smoking cigarettes for about 2 years ago for now On admission neurologist wants to hold anticoagulation for 24 hours because of his acute stroke Currently patient not receiving IV fluid, currently patient not on aspirin or other antiplatelet medication. Not on anticoagulation Repeat CT of the brain is ordered for 2 PM today Patient denies any other new complaint 12/13/2023 Patient today keep improving with his left hemiparesis, no abnormal movements. Sensation abnormalities also improved No headache or dizziness no chest pain or dyspnea. He remains on heparin drip and aspirin 325 mg He had MRI of the brain yesterday showing: Acute/subacute CVA in the right MCA territory with scattered foci in the deep, white matter and a few areas involving the cortex probably the right parietal Echocardiogram with bubble study is requested and is pending Earlier echocardiogram was done showed ejection fraction 55 to 60% Vascular surgery input is appreciated and they recommended outpatient follow-up as the stenosed carotid artery is on the left side while the stroke is on the right side of the brain. 12/14/2023 Patient is seen and evaluated this morning with he is asymptomatic. Vital signs are reviewed and remain stable. Patient underwent NIKKI and that showed large PFO with aneurysmal interatrial septum. Given large PFO and with a DVT, cardiology going to schedule the patient to undergo percutaneous closure of PFO hopefully this coming Saturday. Patient remains on anticoagulation we will continue that. Patient is planned to be switched to oral anticoagulation after procedures completed on Saturday Objective - Vital Signs Vital signs: Vital Signs Temp 97.8 F 12/14/23 08:00 Pulse 71 12/14/23 08:00 Resp 17 12/14/23 08:00 BP 114/71 12/14/23 08:00 Pulse Ox 94 L 12/14/23 08:00 FiO2 21 12/13/23 08:42 Intake & Output 12/13/23 12/14/23 12/14/23 18:59 06:59 18:59 Intake Total 347.736 642.318 Balance 347.736 642.318 Intake: Intake, IV Titration 229.736 102.318 Amount Heparin Sod,Pork in 0.45% 229.736 102.318 NaCl 25,000 unit In 0.45 % NaCl 1 250ml.bag @ 12 UNITS/KG/HR 9.48 mls/hr IV .Q24H [facility] Rx#: [id number] Oral 118 540 Other: Voiding Method Toilet Toilet Urinal Urinal # Voids 3 1 - Exam - Exam GENERAL: The patient is alert and oriented x3, not in any acute distress. Well developed, well nourished. HEENT: Pupils are round and equally reacting to light. EOMI. No scleral icterus. No conjunctival pallor. Normocephalic, atraumatic. No pharyngeal erythema. No thyromegaly. CARDIOVASCULAR: S1 and S2 present. No murmurs, rubs, or gallops. PULMONARY: Chest is clear to auscultation, no wheezing , no crackles. ABDOMEN: Soft, nontender, nondistended, normoactive bowel sounds. No palpable organomegaly. MUSCULOSKELETAL: No joint swelling or deformity. EXTREMITIES: No cyanosis, clubbing, or pedal edema. NEUROLOGICAL: Gross neurological examination did not reveal any focal deficits. SKIN: No rashes. no petechiae. - Labs CBC & Chem 7: 12/11/23 01:41 12/10/23 05:38 Labs: Abnormal Lab Results - Last 24 Hours (Table) 12/13/23 12/13/23 12/13/23 Range/Units 16:23 20:39 23:38 APTT 61.3 H (22.0-30.0) sec POC Glucose (mg/dL) 121 H 114 H (70-110) mg/dL 12/14/23 Range/Units 06:05 APTT (22.0-30.0) sec POC Glucose (mg/dL) 114 H (70-110) mg/dL Assessment and Plan Assessment: Assessment and Plan Assessment: Acute stroke with left hemiparesis Acute pulmonary embolism with no evidence of right heart strain Right lower extremity deep venous thrombosis, acute Right lung infarct, Differential diagnosis fungal infection and neoplasm Fall at home secondary to above 90% stenosis of the left internal carotid artery, cleared with vascular surgery team for discharge Diabetes mellitus Plan: MRI of the brain was reviewed Aantiplatelet management, patient was started on aspirin 325 mg Patient started on heparin drip. With plan to switch it to oral anticoagulants Echocardiogram with bubble study Vascular surgery recommended outpatient follow-up for left internal carotid artery stenosis Pulmonary team, with management of right pulmonary opacity per pulmonary team. Most likely the infarction related to pulmonary embolism Labs and medication were reviewed.. Continue same treatment. Continue with symptomatic treatment. Resume home medication. Monitor labs and vitals. DVT and GI prophylaxis. Further recommendations as per clinical course of the patient DVT prophylaxis: Heparin GI Prophylaxis: Pepcid PT/OT: Recommended home health care versus inpatient rehab. Rehab team will be consulted Prognosis is guarded
[2023-12-14 16:29] LABS: Glucose,Whole Blood 94 mg/dL (70-110)
--- NOTE | 2023-12-14 17:16 | P.PN ---
Subjective Progress Note Date: 12/14/23 Patient was initially seen by Dr. Joel Bills. Please refer to his note for details. Patient is a 68-year-old left-handed male with presented with right MCA stroke who received TNK. Patient has left-sided weakness and was found to have DVT and PE. Patient is on heparin drip and aspirin. NIKKI showed large PFO with shunting. Dr. Bills has recommended closing. Patient was seen for a follow-up. Patient's family members were present. Patient denies any headache. He states he is doing "great". Family believes that patient has slight left-sided weakness, but has improved a lot. Patient to undergo PFO closure on Saturday. Patient states that he is could not sign his name but now he can do so. No new focal symptoms. Some of the workup during this hospital visit consisted of: Hemoglobin A1c 6.9. Lipid panel is triglyceride is 180, cholesterol is 184, LDL is 100.3 and HDL is 47. CT of the head which is reported as mild ventriculomegaly likely due to the central cervical atrophy. Moderate patchy burden of chronic small vessel ischemic disease. No acute intracranial abnormality seen. She reviewed the CT and I agree there is no acute or subacute stroke. CT angiography shows possible severe left ICA stenosis as well as possible PE in the right upper lobe. Showed abnormal focal opacity in the right upper lobe and neoplastic etiology and atypical fungal/mycobacterial infection are in the differential. Then later mentioned exam appears positive for segmental branch pulmonary emboli. Moderate atherosclerotic stenosis segment left ICA Carotid duplex is reported as DVT of the distal common femoral vein. Partial occlusion of the popliteal vein nonocclusive thrombus also felt to be present Repeat CT head post 24 TNK: Similar central cerebral atrophy and moderate burden of chronic small vessel ischemic disease. No acute intracranial abnormality seen. No evidence for hemorrhage transformation. MRI of the brain is reported as acute/subacute CVA in the right MCA territory with scattered foci in the deep white matter and a few areas involving the cor arlyn probably at the right parietal and insular cortex. Nonspecific white matter changes, likely secondary to small vessel ischemic disease. I personally reviewed the MRI and I agree there is acute stroke over the right MCA territory. 2D echo: It is reported as normal left ventricle is function. Mild aortic stenosis. Consider transesophageal echocardiogram to definitely rule out cardiac source for CVA. Bubble study D echo: Positive bubble study with large number of bubbles crossing the inter atrial septum. Objective - Vital Signs Vital signs: Vital Signs Temp 97.8 F 12/14/23 16:30 Pulse 81 12/14/23 16:30 Resp 17 12/14/23 16:30 BP 132/76 12/14/23 16:30 Pulse Ox 95 12/14/23 16:30 FiO2 21 12/13/23 08:42 Intake & Output 12/13/23 12/14/23 12/14/23 18:59 06:59 18:59 Intake Total 347.736 642.318 236 Balance 347.736 642.318 236 Intake: Intake, IV Titration 229.736 102.318 Amount Heparin Sod,Pork in 0.45% 229.736 102.318 NaCl 25,000 unit In 0.45 % NaCl 1 250ml.bag @ 12 UNITS/KG/HR 9.48 mls/hr IV .Q24H [facility] Rx#: [id number] Oral 118 [id number] Other: Voiding Method Toilet Toilet Toilet Urinal Urinal Urinal # Voids 3 1 1 - Exam Patient's mental status, speech and language functions are normal. Patient can name and repeat. On cranial examination pupils are equal, round and reacting, visual begum are full, face appears normal, although with active testing there may be slight left-sided asymmetry very questionable. Tongue protrudes to midline. On muscle strength testing patient has left hand cupping and left elbow flexion. The strength appears normal in the arms and legs. Left hip flexion may be 5-as compared to the right. Sensory to touch is equal with no neglect. No ataxia for [id number] testing. - Labs CBC & Chem 7: 12/11/23 01:41 12/10/23 05:38 Labs: Abnormal Lab Results - Last 24 Hours (Table) 12/13/23 12/13/23 12/14/23 Range/Units 20:39 23:38 06:05 APTT 61.3 H (22.0-30.0) sec POC Glucose (mg/dL) 114 H 114 H (70-110) mg/dL 12/14/23 Range/Units 11:45 APTT (22.0-30.0) sec POC Glucose (mg/dL) 172 H (70-110) mg/dL Assessment and Plan Assessment: This is a 68-year-old gentleman who presents emergency department on 12/09/2023 because of left-sided weakness and slurred speech. A code stroke was activated and the patient was given TNKase. CT angiography shows possible left ICA sten osis of about 90%. It also seems the patient has a pulmonary embolism and DVT in the lower extremity. Acute stroke (left hemiparesis, left facial droop, subtle dysarhria) post IV TNK. MRI Brain reveal right MCA stroke. Etiology of stroke seems embolic---clinically he is improving compared to presentation but continues to have weakness. Has positive PFO with large number of bubble crossing on 2D echo. Left ICA stenosis on CTA but feel asymptomatic since I would expect right sided weakness. Acute Pulmonary embolism Acute DVT in lower extremity Underlying history of Diabetes mellitus Underlying history of Hypertension History of prostate cancer Former tobacco use and stopped smoking about 2 years ago Plan: Patient is on aspirin 325 daily. He is also on IV heparin drip for his acute PE and DVT. So far no new neurological issues and he feels somewhat better according to the patient and his family members NIKKI revealed: 1. Aneurysmal interatrial septum with a large patent [place] (PFO) and right to left shunt 2. Intact left atrial appendage with no thrombus 3. Overall normal intracardiac valves beside aortic sclerosis 4. Normal LV systolic function 5. No evidence of pericardial effusion Patient undergoing PFO closure on Saturday. Vascular surgery team for left ICA and they agree they feel asymptomatic and recommend outpatient follow-up Continue neurochecks Cardiac monitoring Will defer the rest of the medical management to primary and other specialist For DVT prophylaxis: On heparin drip.
[2023-12-14 20:22] LABS: Glucose,Whole Blood 139 mg/dL (70-110)
[2023-12-15 06:05] LABS: Glucose,Whole Blood 113 mg/dL (70-110)
--- NOTE | 2023-12-15 08:48 | P.PN ---
Subjective Progress Note Date: 12/15/23 Principal diagnosis: Stroke The patient is a pleasant 68-year-old gentleman with a past medical history significant for recent diagnosis of stroke secondary to paradoxical embolization with recent diagnosis of right lower extremity DVT and patent foramen ovale as well as hypertension and dyslipidemia and carotid atherosclerosis and multiple comorbid conditions. He underwent yesterday transesophageal echocardiogram and that revealed aneurysmal interatrial septum with large PFO December 14, 2023 The patient was seen and evaluated this morning with he is asymptomatic. He is hemodynamically stable. He underwent yesterday NIKKI and that showed large PFO with aneurysmal interatrial septum. With that and with a DVT I am going to schedule the patient to undergo percutaneous closure of PFO hopefully this coming Saturday. Currently he is on anticoagulation we will continue that. The examination is remarkable for regular rhythm with clear breathing sounds bilaterally and no carotid bruit and no edema was noted December 15, 2023 The patient was seen and evaluated this morning with he is asymptomatic and hemodynamically stable. He continues to be on IV heparin. The plan is to pursue with PFO closure tomorrow morning and subsequently the patient can be started on oral anticoagulation for the DVT. He reports no pain in the chest or shortness of breath or dizziness or lightheadedness and no edema as well. The examination is remarkable for stable vital signs with regular rate and rhythm and clear breathing sounds bilaterally and no edema was noted Assessment Paradoxical embolization with stroke Right lower extremity DVT Aneurysmal interatrial septum with PFO Multiple comorbid conditions Plan Proceed with PFO closure Continue oral anticoagulation Switch to oral anticoagulation after the procedure on Saturday Follow-up with the patient Objective - Vital Signs Vital signs: Vital Signs Temp 98.2 F 12/14/23 20:00 Pulse 80 12/15/23 04:00 Resp 16 12/15/23 04:00 BP 132/79 12/15/23 04:00 Pulse Ox 92 L 12/15/23 04:00 FiO2 21 12/13/23 08:42 Intake & Output 12/14/23 12/15/23 12/15/23 18:59 06:59 18:59 Intake Total 501.682 540 240 Balance 501.682 540 240 Intake: Intake, IV Titration 147.682 Amount Heparin Sod,Pork in 0.45% 147.682 NaCl 25,000 unit In 0.45 % NaCl 1 250ml.bag @ 12 UNITS/KG/HR 9.48 mls/hr IV .Q24H [facility] Rx#: [id number] Oral 354 540 240 Other: Voiding Method Toilet Toilet Urinal Urinal # Voids 3 3 - Labs CBC & Chem 7: 12/11/23 01:41 12/10/23 05:38 Labs: Abnormal Lab Results - Last 24 Hours (Table) 12/14/23 12/14/23 12/15/23 Range/Units 11:45 20:20 00:15 APTT 65.3 H (22.0-30.0) sec POC Glucose (mg/dL) 172 H 139 H (70-110) mg/dL 12/15/23 Range/Units 06:04 APTT (22.0-30.0) sec POC Glucose (mg/dL) 113 H (70-110) mg/dL Microbiology - Last 24 Hours (Table) 12/09/23 16:48 Blood Culture - Final Blood 12/09/23 16:30 Blood Culture - Final Blood
[2023-12-15] MEDS: LACTULOSE 20 GM/30 ML CUP PO ONE (08:59)
[2023-12-15 10:51] LABS: Basophils % (A) 0 %; Eosinophils # (A) 0.2 k/uL (0-0.7); Eosinophils % (A) 2 %; HCT 49.5 % (39.0-53.0); HGB 16.2 gm/dL (13.0-17.5); Lymphocytes # (A) 1.3 k/uL (1.0-4.8); Lymphocytes % (A) 16 %; MCHC 32.7 g/dL (31.0-37.0); MCV 91.7 fL (80.0-100.0); Mean Platelet Volume 7.8; Monocytes # (A) 0.5 k/uL (0-1.0); Monocytes % (A) 6 %; Neutrophils # (A) 6.1 k/uL (1.3-7.7); Neutrophils % (A) 73 %; Platelet Count 380 k/uL (150-450); RDW 15.6 % (11.5-15.5); WBC 8.4 k/uL (3.8-10.6)
[2023-12-15 11:03] LABS: African American GFR (CKD) 64 (>60 ml/min/1.73 sqM); Anion Gap 9 mmol/L; Blood Urea Nitrogen 16 mg/dL (9-20); Calcium 10.2 mg/dL (8.4-10.2); Carbon Dioxide 23 mmol/L (22-30); Chloride 103 mmol/L (98-107); Glucose 134 mg/dL (74-99); Non-African American GFR(CKD) 55 (>60 ml/min/1.73 sqM); Sodium 135 mmol/L (137-145)
[2023-12-15 11:13] LABS: Glucose,Whole Blood 138 mg/dL (70-110)
[2023-12-15 11:18] LABS: Potassium 4.9 mmol/L (3.5-5.1)
--- NOTE | 2023-12-15 12:29 | P.PN ---
Subjective Progress Note Date: 12/15/23 Principal diagnosis: CVA. Patient is a 68-year-old white male with past medical history significant for diabetes mellitus, prostate cancer status post radiation, former tobacco smoker quitting 2 years ago, and recent COVID infection. Patient was in the kitchen yesterday, he had a fall to the ground, hit his knees. His heard this, and found him on the ground. He could not stand back up by himself. He had slurred speech, left-sided facial droop, and left-sided weakness. 911 was called immediately, and a code stroke was initiated. Patient was transferred to [facility] on ER. Initial NIH score is 6. Noncontrast CT of the brain showed mild ventriculomegaly likely due to central cervical atrophy. Moderate patchy burden of chronic small vessel ischemic disease. No acute intracranial process seen. Follow-up CT angio of the head and neck showed severe, possibly up to 90% proximal left ICA stenosis. Dominant left vertebral artery. No large vessel intracranial arterial occlusion, significant stenosis, or aneurysm change otherwise seen. Patient did receive tenecteplase infusion per protocol. There were some incidental pulmonary findings noted on CTA of the head and neck, which initiated a chest CTA to be performed which showed right upper lung pulmonary emboli visualized in the segmental and subsegmental arterial vasculature. There are airspace opacities in the right upper and right middle lobes, somewhat peripheral with at least 1 area of cavitation. Given the patient's pulmonary emboli, these likely represent pulmonary infarcts. There was also incidentally some pleural plaquing noted. Patient is currently in the intensive care unit, on room air, in no acute distress. He continues to have a left-sided facial droop, with dysarthria, and left-sided hemiparesis. Blood pressure currently 138/70 mmHg. Heart rhythm appears normal sinus on bedside monitor, around 80 bpm. No respiratory distress or tachypnea. Patient denies any infectious symptoms such as fevers, cough, sputum production, chest pain, hemoptysis. Actually denies any pulmonary complaints. He is currently on room air. SpO2 is 93%. He did reportedly have a recent COVID infection back in September, when he was visiting in [place]. He did not go to the hospital at this time. Mode of transportation was driving. Denies any personal history of blood clots. Denies any recent surgeries or trauma. A follow-up venous Doppler did identify a DVT of the distal common femoral vein on the right, with a partial occlusion of the popliteal vein nonocclusive thrombus also felt to be present. CBC unremarkable. No leukocytosis. Baseline coagulation profile includes a PT of 11.3, INR of 1, APTT of 22.9. BMP includes: Sodium 134, potassium 4.4, chloride 101, serum bicarb 26, BUN 17, creatinine 1.11, glucose 128. Lactic acid 1.5. LFTs not elevated. Troponin less than 0.012. EKG on arrival shows normal sinus without any acute ischemic changes. Follow-up echocardiogram is pending. Neurochecks are continuing per protocol. Follow-up CT of the brain without contrast is pending for the morning. Progress note dated December 11, 2023. This is a patient who was seen in consultation yesterday. He presented to the emergency department, having fallen, in his kitchen. The patient apparently could not stand back up, had slurred speech, left facial droop, and left-sided weakness. Patient was seen in the emergency department, and was thought to have a CVA, and, was given tenecteplase. The patient is currently in the ICU, room 266. He is doing much better. The patient is on 2 L of oxygen. He is receiving IV heparin. In addition to the CVA, the patient was discovered to have pulmonary embolism, hence the IV heparin. Currently, he is doing much b miguel as mentioned above. Current laboratory data includes a white count 7.5, hemoglobin 15.7, hematocrit 48.8, platelet count that was normal. PTT is 38.1. Glucose is 105. Blood cultures are currently negative. Brain CT shows similar central cerebral atrophy and moderate burden of chronic small vessel ischemic disease. Nothing acute was noted. MRI reveals an acute/subacute CVA in the middle right MCA territory, with scattered foci in the deep white matter and a few areas involving the cortex, probably the right parietal lobe and insular cortex. Progress note dated December 12, 2023. 68-year-old gentleman seen today in room 354. He was in the intensive care unit yesterday. The patient is currently on 2 L of oxygen. He is receiving IV heparin. He is recovering from CVA, and pulmonary embolism. Clinically, he is much more stable, and of left-sided weakness, it is dramatically improved. Current labs include a PTT of 64, glucose is 128. The labs from yesterday have been reviewed. Blood cultures are negative. Progress note dated December 13, 2023. 68-year-old male seen today in room 354. The patient is scheduled to have a transesophageal echocardiogram today. The patient had a bubble study, which suggested a patent foramen ovale. He is on room air. He is not receiving any IV fluids. He is receiving IV heparin. The patient was initially admitted with a CVA, involving the left side of his body, and pulmonary embolism. No new laboratory data today other than a glucose of 104. Progress note dated December 14, 2023. 68-year-old male seen today room 354. The patient had a transesophageal echocardiogram done yesterday which revealed a large patent foramen ovale with a right to left shunt. The patient is apparently going to have a patch repair, done early next week. Currently, he is on room air. Is not receiving any IV fluids. He has no complaints. He denies any shortness of breath, cough, wheezing, chest tightness, or phlegm production. He also denies any chest pain or pressure. No new labs today other than a glucose of 172. Progress note dated December 15, 2023. 68-year-old male seen today in room 354. The patient is currently on room air. He is receiving IV heparin. He is scheduled to have the repair of his patent foramen ovale, done tomorrow, December 15. The patient denies any complaints, and states that he is feeling rather well. Laboratory data includes a white count 8.4, hemoglobin 16.2, hematocrit 49.5, and a normal platelet count. Sodium 135, potassium 4.9, chlorides 103, CO2 23, BUN 16, creatinine 1.31. The patient's glucose is 138. Calcium 10.2. The bubble study suggested a patent foramen ovale, which was confirmed by the transesophageal echocardiogram. In addition, there was a right to left shunt. Objective - Vital Signs Vital signs: Vital Signs Temp 97.6 F 12/15/23 08:15 Pulse 84 12/15/23 08:15 Resp 17 12/15/23 08:15 BP 115/74 12/15/23 08:15 Pulse Ox 94 L 12/15/23 08:15 FiO2 21 12/13/23 08:42 Intake & Output 12/14/23 12/15/23 12/15/23 18:59 06:59 18:59 Intake Total 501.682 540 240 Balance 501.682 540 240 Intake: Intake, IV Titration 147.682 Amount Heparin Sod,Pork in 0.45% 147.682 NaCl 25,000 unit In 0.45 % NaCl 1 250ml.bag @ 12 UNITS/KG/HR 9.48 mls/hr IV .Q24H [facility] Rx#: [id number] Oral 354 [id number] 240 Other: Voiding Method Toilet Toilet Toilet Urinal Urinal Urinal # Voids 3 3 1 - Exam No acute distress, oriented 3. Patient is currently on room air. Saturations are 94 %. HEENT examination is grossly unremarkable. Mucous membranes are moist. No oral lesions. Neck supple. Full range of motion. No adenopathy thyromegaly or neck vein distention. Cardiovascular examination reveals regular rhythm rate. S1-S2 normal. No S3 or S4. No discernible murmur noted. Heart rate 84 bpm. Lungs reveal clear breath sounds. Breath sounds are equal bilaterally. No adventitious lung sounds including wheezes rhonchi or crackles. Abdomen soft bowel sounds are heard. No masses or tenderness. Extremities are intact. No cyanosis clubbing or edema. Skin is without rash or lesion. Neurologic examination revealed minimal left-sided changes. - Labs CBC & Chem 7: 12/15/23 10:29 12/15/23 10:29 Labs: Abnormal Lab Results - Last 24 Hours (Table) 12/14/23 12/15/23 12/15/23 Range/Units 20:20 00:15 06:04 RDW (11.5-15.5) % APTT 65.3 H (22.0-30.0) sec Sodium (137-145) mmol/L Creatinine (0.66-1.25) mg/dL Glucose (74-99) mg/dL POC Glucose (mg/dL) 139 H 113 H (70-110) mg/dL 12/15/23 12/15/23 12/15/23 Range/Units 10:29 10:29 11:12 RDW 15.6 H (11.5-15.5) % APTT (22.0-30.0) sec Sodium 135 L (137-145) mmol/L Creatinine 1.31 H (0.66-1.25) mg/dL Glucose 134 H (74-99) mg/dL POC Glucose (mg/dL) 138 H (70-110) mg/dL Microbiology - Last 24 Hours (Table) 12/09/23 16:48 Blood Culture - Final Blood 12/09/23 16:30 Blood Culture - Final Blood Assessment and Plan Assessment: Acute ischemic CVA, status post TNK, with MRI showing evidence of right-sided infarct, in the area of the MCA. Acute segmental and subsegmental right-sided pulmonary emboli, involving the right upper lobe and right middle lobe. There may also be pulmonary infarction. Deep vein thrombosis, involving the distal common femoral vein on the right, with partial occlusion of the popliteal vein as well. Patent foramen ovale, with a right to left shunt. Severe proximal left-sided ICA stenosis. Diabetes mellitus, type II, Recent coronavirus infection. History of prostate cancer, status post radiation. Previous history of tobacco use. Plan: Plan dated December 11, 2023. The patient is seen in the intensive care unit, room 266. He continues to have some left-sided symptomatology, but overall, things have improved. Labs, x- rays, and medications are reviewed. The patient was started on IV heparin for his pulmonary emboli. The results of the MRI are reviewed. We will continue to follow the patient, make recommendations along the way. Patient's overall prognosis is guarded. He has shown great improvement in the last 24 hours. Plan dated December 12, 2023. The patient has been moved out of the intensive care unit, into room 354. He is currently on 2 L of oxygen. He is receiving IV heparin via weight-based protocol. Labs, x-rays, medications are reviewed. The patient's left-sided weakness, is dramatically improved. The patient is getting heparin not only for the CVA, but also for the pulmonary embolism. He did receive tenecteplase. We will continue to follow make recommendations along the way. Prognosis is guarded. Plan dated December 13, 2023. The patient is seen today in room 354. He is on room air. He continues to receive IV heparin. The patient had a bubble study was suggested a patent foramen ovale. The patient is scheduled for transesophageal echocardiogram today. Additional recommendations and suggestions are forthcoming. We will continue to follow the patient, make recommendations along the way. Patient was diagnosed as having a right-sided CVA with left-sided weakness. He did receive tenecteplase. It was also discovered to have a pulmonary embolism. Plan dated December 14, 2023. The patient is seen today in room 354. He is currently on room air. No fluids. The patient's bubble study suggested a patent foramen ovale. The patient had a transesophageal echocardiogram, which confirmed a patent foramen ovale, and a right to left shunt. The patient will apparently have a patch repair done early next week. Labs, x-rays, medications are reviewed. No additional recommendations are made. We will continue to follow. The patient does continue on IV heparin. Prognosis is guarded. Plan dated December 15, 2023. The patient was seen in room 354. He remains on IV heparin only. The patient is not requiring any supplemental oxygen or additional IV fluids. The patient's transesophageal echocardiogram confirmed what was seen on the bubble study, that the patient had a large PFO, with a right to left shunt. That we will be dealt with tomorrow, by cardiology. Labs, x-rays, and medications are reviewed. The patient's overall prognosis remains guarded. We will continue to follow make recommendations along the way. Time with Patient: Less than 30
[2023-12-15 16:17] LABS: Glucose,Whole Blood 137 mg/dL (70-110)
[2023-12-15 20:14] LABS: Glucose,Whole Blood 161 mg/dL (70-110)
[2023-12-16 06:09] LABS: Glucose,Whole Blood 117 mg/dL (70-110)
[2023-12-16 07:19] LABS: Basophils # (A) 0.1 k/uL (0-0.2); Basophils % (A) 1 %; Eosinophils # (A) 0.2 k/uL (0-0.7); Eosinophils % (A) 3 %; HCT 48.2 % (39.0-53.0); HGB 15.6 gm/dL (13.0-17.5); Lymphocytes # (A) 1.1 k/uL (1.0-4.8); Lymphocytes % (A) 14 %; MCH 30.5 pg (25.0-35.0); MCHC 32.5 g/dL (31.0-37.0); MCV 93.7 fL (80.0-100.0); Mean Platelet Volume 7.7; Monocytes # (A) 0.5 k/uL (0-1.0); Monocytes % (A) 6 %; Neutrophils % (A) 75 %; Platelet Count 344 k/uL (150-450); RBC 5.14 m/uL (4.30-5.90); RDW 15.4 % (11.5-15.5); WBC 7.9 k/uL (3.8-10.6)
[2023-12-16] MEDS ORDERED: LIDOCAINE 1% INJ 10MG/ML (20 ML MDV) ONE (07:29)
[2023-12-16 07:37] LABS: African American GFR (CKD) 69 (>60 ml/min/1.73 sqM); Blood Urea Nitrogen 13 mg/dL (9-20); Calcium 9.9 mg/dL (8.4-10.2); Carbon Dioxide 26 mmol/L (22-30); Chloride 103 mmol/L (98-107); Glucose 134 mg/dL (74-99); Non-African American GFR(CKD) 60 (>60 ml/min/1.73 sqM)
[2023-12-16 07:45] LABS: Anion Gap 7 mmol/L; Sodium 136 mmol/L (137-145)
[2023-12-16] MEDS: MIDAZOLAM 2 MG/2 ML VIAL IVP ONE (07:45)
[2023-12-16] MEDS ORDERED: CLOPIDOGREL 75 MG TAB ONE (07:46)
[2023-12-16] MEDS: LIDOCAINE 1% INJ 10MG/ML (20 ML MDV) SQ ONE (07:46)
[2023-12-16] MEDS ORDERED: fentaNYL (PF) 50 MCG/ML 2 ML AMP ONE (07:47)
[2023-12-16] MEDS: fentaNYL (PF) 50 MCG/ML 2 ML AMP IVP ONE ×2 (07:50→08:04)
[2023-12-16] MEDS ORDERED: HEPARIN SODIUM 1,000 UN/ML (10ML VL) ONE (07:50)
[2023-12-16] MEDS: HEPARIN SODIUM 1,000 UN/ML (10ML VL) IVP ONE (07:50)
[2023-12-16] MEDS: CLOPIDOGREL 75 MG TAB PO ONE (07:59)
[2023-12-16] MEDS: SODIUM CHLORIDE 0.9% 1,000 ML IV ONE (08:14)
--- NOTE | 2023-12-16 08:21 | P.PCN ---
Date of Procedure: 12/16/23 Operative Findings: PERCUTANEOUS CLOSURE OF FENESTRATED INTERATRIAL SEPTUM PERFORMING PHYSICIAN: Pankaj Dodson MD, [facility] PROCEDURE PERFORMED: 1. Successful percutaneous closure of PFO using 35 mm Amplatzer Occluder with an excellent results and without any residual shunt. 2. Intracardiac echocardiogram imaging. 3. Right atrial angiogram. 4. Ultrasound-guided access of the right common femoral veins x 2 INDICATION: Paradoxical embolization APPROACH: Right common femoral vein 2 COMPLICATION: None. LEVEL OF SEDATION: Moderate with sedation length of 26 minutes. PROCEDURE DESCRIPTION: After obtaining informed consent, the patient was brought to the cardiac laborer pullet farm. The right common femoral vein was cannulated x2 using micropuncture technique under ultrasound guidance, the micropuncture wire passed easily, then I placed two 8-Polish sheath in the right groin. Subsequently I cannulated the left common femoral vein with the same technique and I placed an 8-Polish sheath there as well. At that point, anticoagulation was initiated using heparin and the patient was given a bolus of 6,000 units of heparin IV with continuous ACT monitoring throughout the procedure. After that, the intracardiac echocardiogram probe was advanced through one of the venous sheath all the way to the right atrium where we did interrogate the interatrial septum and identified the patent foramen ovale which was measured about 35 mm. Subsequently, I did cross the defect using 0.035 J-wire with the backup support of multipurpose catheter. The wire was advanced all the way to the left upper pulmonary vein and subsequently the catheter was advanced over the wire to the left upper pulmonary vein. The 0.035 J-wire was pulled out and then I advanced a meli wire. Subsequently, the multipurpose catheter was withdrawn out and the wire was left in the left upper pulmonary vein. After that, I did prep the Amplatzer PFO occluder under saline. The device was loaded into the payloader operator, which was attached to the sheath. Subsequently, I did exchange my 8-Polish sheath into the Shuttle sheath over a 0.035 meli wire. The sheath was advanced all the way under fluoroscopy guidance to the left atrium. Subsequently, the dilator of the sheath was withdrawn out along with the wire. After that, I did load the Amplatzer occluder under continuous saline flush to the sheath. The device was advanced all the way through the sheath were I did where I did deploy initially the left atrial occluder and then I pulled back the sheath and the left atrial occluder all the way to the interatrial septum and then I deployed the right atrial occluder after that. Before I released the device, I did interrogate the septum using ice images on multiple views. After I realized that the device was stable enough and in good position the device was released. Interrogation using ice was also performed after the device was released. By the end I did right atrial angiogram. The procedure was completed without any complication. POSTPROCEDURE MANAGEMENT: 1. Dual anti-platelet therapy.
[2023-12-16] MEDS: ASPIRIN 325 MG TAB PO SCH (08:53)
[2023-12-16] MEDS ORDERED: CLOPIDOGREL 75 MG TAB PO SCH (09:00)
--- NOTE | 2023-12-16 10:22 | P.PN ---
Subjective Progress Note Date: 12/15/23 68 years old male with past medical history of diabetes mellitus and prostate cancer Presents because of strokelike signs symptoms with left-sided weakness including arm and leg and left facial droop, patient also fell at home. Patient is awake alert able to talk freely but complaining from severe weakness in his left forearm and hand and to a lesser extent in his left leg. He feels abnormal feeling in his left arm as he is not feeling it. He denies any headache or dizziness but also there is some evidence of left- sided facial droop and deviation of the face to the right side Patient denies chest pain or dyspnea however on admission he had CTA of the head of the neck showing possible occlusions of the pulmonary artery hence CTA of the chest was obtained and was positive for pulmonary embolism of the right upper lobe right middle lobe with opacities suspicious for infarct Patient denies leg pain, coughing blood or hemoptysis, recent surgery. Patient denies chest pain or coughing No change in urine or bowel habits. No fever or chills He states he is currently alcohol or smoking cigarettes for about 2 years ago for now On admission neurologist wants to hold anticoagulation for 24 hours because of his acute stroke Currently patient not receiving IV fluid, currently patient not on aspirin or other antiplatelet medication. Not on anticoagulation Repeat CT of the brain is ordered for 2 PM today Patient denies any other new complaint 12/13/2023 Patient today keep improving with his left hemiparesis, no abnormal movements. Sensation abnormalities also improved No headache or dizziness no chest pain or dyspnea. He remains on heparin drip and aspirin 325 mg He had MRI of the brain yesterday showing: Acute/subacute CVA in the right MCA territory with scattered foci in the deep, white matter and a few areas involving the cortex probably the right parietal Echocardiogram with bubble study is requested and is pending Earlier echocardiogram was done showed ejection fraction 55 to 60% Vascular surgery input is appreciated and they recommended outpatient follow-up as the stenosed carotid artery is on the left side while the stroke is on the right side of the brain. 12/14/2023 Patient is seen and evaluated this morning with he is asymptomatic. Vital signs are reviewed and remain stable. Patient underwent NIKKI and that showed large PFO with aneurysmal interatrial septum. Given large PFO and with a DVT, cardiology going to schedule the patient to undergo percutaneous closure of PFO hopefully this coming Saturday. Patient remains on anticoagulation we will continue that. Patient is planned to be switched to oral anticoagulation after procedures completed on Saturday12/15/2023 Patient is seen and evaluated; denies any specific complaints Vital signs are reviewed and stable with temperature of 98.2, pulse 80, respiration 1860 and blood pressure 132/79 with O2 saturation of 92% with FiO2 of 21% Blood work reveals a WBC of 8.4, hemoglobin of 16.2 and platelet count of 380, sodium 135, potassium 4.9, BUNs/creatinine of 16/1.31 Patient remains on IV heparin; plan of care reviewed with patient and family with PFO closure tomorrow morning. Patient will remain on IV heparin till after the procedure after which plan is to transition to oral anticoagulation for DVT Objective - Vital Signs Vital signs: Vital Signs Temp 98.2 F 12/14/23 20:00 Pulse 80 12/15/23 04:00 Resp 16 12/15/23 04:00 BP 132/79 12/15/23 04:00 Pulse Ox 92 L 12/15/23 04:00 FiO2 21 12/13/23 08:42 Intake & Output 12/14/23 12/15/23 12/15/23 18:59 06:59 18:59 Intake Total 501.682 540 240 Balance 501.682 540 240 Intake: Intake, IV Titration 147.682 Amount Heparin Sod,Pork in 0.45% 147.682 NaCl 25,000 unit In 0.45 % NaCl 1 250ml.bag @ 12 UNITS/KG/HR 9.48 mls/hr IV .Q24H [facility] Rx#: [id number] Oral 354 540 240 Other: Voiding Method Toilet Toilet Urinal Urinal # Voids 3 3 - Exam - Exam GENERAL: The patient is alert and oriented x3, not in any acute distress. Well developed, well nourished. HEENT: Pupils are round and equally reacting to light. EOMI. No scleral icterus. No conjunctival pallor. Normocephalic, atraumatic. No pharyngeal erythema. No thyromegaly. CARDIOVASCULAR: S1 and S2 present. No murmurs, rubs, or gallops. PULMONARY: Chest is clear to auscultation, no wheezing , no crackles. ABDOMEN: Soft, nontender, nondistended, normoactive bowel sounds. No palpable organomegaly. MUSCULOSKELETAL: No joint swelling or deformity. EXTREMITIES: No cyanosis, clubbing, or pedal edema. NEUROLOGICAL: Gross neurological examination did not reveal any focal deficits. SKIN: No rashes. no petechiae. - Labs CBC & Chem 7: 12/16/23 06:51 12/16/23 06:51 Labs: Abnormal Lab Results - Last 24 Hours (Table) 12/14/23 12/14/23 12/15/23 Range/Units 11:45 20:20 00:15 APTT 65.3 H (22.0-30.0) sec POC Glucose (mg/dL) 172 H 139 H (70-110) mg/dL 12/15/23 Range/Units 06:04 APTT (22.0-30.0) sec POC Glucose (mg/dL) 113 H (70-110) mg/dL Microbiology - Last 24 Hours (Table) 12/09/23 16:48 Blood Culture - Final Blood 12/09/23 16:30 Blood Culture - Final Blood Assessment and Plan Assessment: Assessment and Plan Assessment: Acute stroke with left hemiparesis Acute pulmonary embolism with no evidence of right heart strain Right lower extremity deep venous thrombosis, acute Right lung infarct, Differential diagnosis fungal infection and neoplasm Fall at home secondary to above 90% stenosis of the left internal carotid artery, cleared with vascular surgery team for discharge Diabetes mellitus Plan: MRI of the brain was reviewed Aantiplatelet management, patient was started on aspirin 325 mg Patient started on heparin drip. With plan to switch it to oral anticoagulants Echocardiogram with bubble study Vascular surgery recommended outpatient follow-up for left internal carotid artery stenosis Pulmonary team, with management of right pulmonary opacity per pulmonary team. Most likely the infarction related to pulmonary embolism Labs and medication were reviewed.. Continue same treatment. Continue with symptomatic treatment. Resume home medication. Monitor labs and vitals. DVT and GI prophylaxis. Further recommendations as per clinical course of the patient DVT prophylaxis: Heparin GI Prophylaxis: Pepcid PT/OT: Recommended home health care versus inpatient rehab. Rehab team will be consulted Prognosis is guarded
[2023-12-16 11:16] LABS: Glucose,Whole Blood 121 mg/dL (70-110)
--- NOTE | 2023-12-16 11:28 | P.PN ---
Progress Note - Text Patient is s/p PFO closure this morning with Dr. Dodson. Patient admitted with CVA and also DVT. He was on IV heparin. Cardiology recommending beginning Eliquis per DVT dosage at 10mg BID for 7 days then decreasing to 5mg BID. Patient is also currently on aspirin and Plavix secondary to PFO closure. Discussed with Dr. Varela regarding anticoagulation. He states he would like to see the patient first and then will reach back out to cardiology team if it is okay to begin Eliquis.
[2023-12-16] MEDS ORDERED: LORazepam 2 MG/ML INJ IV PRN (11:54)
[2023-12-16 15:36] VITALS: BMI 25.7
--- NOTE | 2023-12-16 16:31 | P.PN ---
Subjective Progress Note Date: 12/16/23 Patient is a 68-year-old white male with past medical history significant for diabetes mellitus, prostate cancer status post radiation, former tobacco smoker quitting 2 years ago, and recent COVID infection. Patient was in the kitchen yesterday, he had a fall to the ground, hit his knees. His heard this, and found him on the ground. He could not stand back up by himself. He had slurred speech, left-sided facial droop, and left-sided weakness. 911 was called immediately, and a code stroke was initiated. Patient was transferred to [facility] on ER. Initial NIH score is 6. Noncontrast CT of the brain showed mild ventriculomegaly likely due to central cervical atrophy. Moderate patchy burden of chronic small vessel ischemic disease. No acute intracranial process seen. Follow-up CT angio of the head and neck showed severe, possibly up to 90% proximal left ICA stenosis. Dominant left vertebral artery. No large vessel intracranial arterial occlusion, significant stenosis, or aneurysm change otherwise seen. Patient did receive tenecteplase infusion per protocol. There were some incidental pulmonary findings noted on CTA of the head and neck, which initiated a chest CTA to be performed which showed right upper lung pulmonary emboli visualized in the segmental and subsegmental arterial vasculature. There are airspace opacities in the right upper and right middle lobes, somewhat peripheral with at least 1 area of cavitation. Given the patient's pulmonary emboli, these likely represent pulmonary infarcts. There was also incidentally some pleural plaquing noted. Patient is currently in the intensive care unit, on room air, in no acute distress. He continues to have a left-sided facial droop, with dysarthria, and left-sided hemiparesis. Blood pressure currently 138/70 mmHg. Heart rhythm appears normal sinus on bedside monitor, around 80 bpm. No respiratory distress or tachypnea. Patient denies any infectious symptoms such as fevers, cough, sputum production, chest pain, hemoptysis. Actually denies any pulmonary complaints. He is currently on room air. SpO2 is 93%. He did reportedly have a recent COVID infection back in September, when he was visiting in [place]. He did not go to the hospital at this time. Mode of transportation was driving. Denies any personal history of blood clots. Denies any recent surgeries or trauma. A follow-up venous Doppler did identify a DVT of the distal common femoral vein on the right, with a partial occlusion of the popliteal vein nonocclusive thrombus also felt to be present. CBC unremarkable. No leukocytosis. Baseline coagulation profile includes a PT of 11.3, INR of 1, APTT of 22.9. BMP includes: Sodium 134, potassium 4.4, chloride 101, serum bicarb 26, BUN 17, creatinine 1.11, glucose 128. Lactic acid 1.5. LFTs not elevated. Troponin less than 0.012. EKG on arrival shows normal sinus without any acute ischemic changes. Follow-up echocardiogram is pending. Neurochecks are continuing per protocol. Follow-up CT of the brain without contrast is pending for the morning. Progress note dated December 11, 2023. This is a patient who was seen in consultation yesterday. He presented to the emergency department, having fallen, in his kitchen. The patient apparently could not stand back up, had slurred speech, left facial droop, and left-sided weakness. Patient was seen in the emergency department, and was thought to have a CVA, and, was given tenecteplase. The patient is currently in the ICU, room 266. He is doing much better. The patient is on 2 L of oxygen. He is receiv ing IV heparin. In addition to the CVA, the patient was discovered to have pulmonary embolism, hence the IV heparin. Currently, he is doing much better as mentioned above. Current laboratory data includes a white count 7.5, hemoglobin 15.7, hematocrit 48.8, platelet count that was normal. PTT is 38.1. Glucose is 105. Blood cultures are currently negative. Brain CT shows similar central cerebral atrophy and moderate burden of chronic small vessel ischemic disease. Nothing acute was noted. MRI reveals an acute/subacute CVA in the middle right MCA territory, with scattered foci in the deep white matter and a few areas involving the cortex, probably the right parietal lobe and insular cortex. Progress note dated December 12, 2023. 68-year-old gentleman seen today in room 354. He was in the intensive care unit yesterday. The patient is currently on 2 L of oxygen. He is receiving IV h eparin. He is recovering from CVA, and pulmonary embolism. Clinically, he is much more stable, and of left-sided weakness, it is dramatically improved. Current labs include a PTT of 64, glucose is 128. The labs from yesterday have been reviewed. Blood cultures are negative. Progress note dated December 13, 2023. 68-year-old male seen today in room 354. The patient is scheduled to have a transesophageal echocardiogram today. The patient had a bubble study, which suggested a patent foramen ovale. He is on room air. He is not receiving any IV fluids. He is receiving IV heparin. The patient was initially admitted with a CVA, involving the left side of his body, and pulmonary embolism. No new laboratory data today other than a glucose of 104. Progress note dated December 14, 2023. 68-year-old male seen today room 354. The patient had a transesophageal echocardiogram done yesterday which revealed a large patent foramen ovale with a right to left shunt. The patient is apparently going to have a patch repair, done early next week. Currently, he is on room air. Is not receiving any IV fluids. He has no complaints. He denies any shortness of breath, cough, wheezing, chest tightness, or phlegm production. He also denies any chest pain or pressure. No new labs today other than a glucose of 172. Progress note dated December 15, 2023. 68-year-old male seen today in room 354. The patient is currently on room air. He is receiving IV heparin. He is scheduled to have the repair of his patent foramen ovale, done tomorrow, December 15. The patient denies any complaints, and states that he is feeling rather well. Laboratory data includes a white count 8.4, hemoglobin 16.2, hematocrit 49.5, and a normal platelet count. Sodium 135, potassium 4.9, chlorides 103, CO2 23, BUN 16, creatinine 1.31. The patient's glucose is 138. Calcium 10.2. The bubble study suggested a patent foramen ovale, which was confirmed by the transesophageal echocardiogram. In addition, there was a right to left shunt. 12/16/2023, the patient is being seen for a follow-up. The patient underwent a c losure of a PFO today. The patient did have paradoxic embolism complicated by CVA. The patient had a lower extremity DVT involving the distal common femoral vein. There was also partial occlusion of the popliteal vein. The CTA of the chest was reviewed. There is a filling defect in the right upper lobe pulmonary artery and other smaller filling defects are present in the segmental branches of the right upper and right middle lobe. However, there is wedge shaped pulmonary opacities and multiple airspace opacities in the right lung with an area of cavitation in the right midlung area measuring 4.4 x 2.5 cm in size. No significant consolidation on the left. The radiologist interpreted this as areas of possible pulmonary infarct. Infections or malignancies cannot be completely excluded. The patient has also calcification of the pleura which may reflect previous asbestos exposure. Currently, the patient is on room air oxygen with a pulse ox of 94% with a white cell count of 7.9 with a hemoglobin 15.6, BUN of 13 with a creatinine of 1.22. The patient is currently on aspirin 325 mg p.o. daily and Plavix 75 mg p.o. daily. Objective - Vital Signs Vital signs: Vital Signs Temp 98.0 F 12/16/23 02:54 Pulse 81 12/16/23 02:54 Resp 16 12/16/23 02:54 BP 138/81 12/16/23 02:54 Pulse Ox 94 L 12/16/23 02:54 FiO2 21 12/13/23 08:42 Intake & Output 12/15/23 12/16/23 12/16/23 18:59 06:59 18:59 Intake Total 420 789.416 150 Balance 420 789.416 150 Intake: IV 150 Intake, IV Titration 249.416 Amount Heparin Sod,Pork in 0.45% 249.416 NaCl 25,000 unit In 0.45 % NaCl 1 250ml.bag @ 12 UNITS/KG/HR 9.48 mls/hr IV .Q24H [facility] Rx#: [id number] Oral 420 540 Other: Voiding Method Toilet Toilet Urinal Urinal # Voids 1 1 - Exam No acute distress, oriented 3. Patient is currently on room air. Saturations are 94 %. Patient remains on room air oxygen for now. HEENT examination is grossly unremarkable. Mucous membranes are moist. No oral lesions. Neck supple. Full range of motion. No adenopathy thyromegaly or neck vein distention. Cardiovascular examination reveals regular rhythm rate. S1-S2 normal. No S3 or S4. No discernible murmur noted. Lungs reveal clear breath sounds. Breath sounds are equal bilaterally. No adventitious lung sounds including wheezes rhonchi or crackles. Abdomen soft bowel sounds are heard. No masses or tenderness. Extremities are intact. No cyanosis clubbing or edema. Skin is without rash or lesion. Neurologic examination revealed minimal left-sided changes. - Labs CBC & Chem 7: 12/16/23 06:51 12/16/23 06:51 Labs: Abnormal Lab Results - Last 24 Hours (Table) 12/15/23 12/15/23 12/15/23 Range/Units 10:29 11:12 16:14 APTT (22.0-30.0) sec Sodium 135 L (137-145) mmol/L Creatinine 1.31 H (0.66-1.25) mg/dL Glucose 134 H (74-99) mg/dL POC Glucose (mg/dL) 138 H 137 H (70-110) mg/dL 12/15/23 12/16/23 12/16/23 Range/Units 20:03 00:02 05:46 APTT 63.6 H (22.0-30.0) sec Sodium (137-145) mmol/L Creatinine (0.66-1.25) mg/dL Glucose (74-99) mg/dL POC Glucose (mg/dL) 161 H 117 H (70-110) mg/dL 12/16/23 Range/Units 06:51 APTT (22.0-30.0) sec Sodium 136 L (137-145) mmol/L Creatinine (0.66-1.25) mg/dL Glucose 134 H (74-99) mg/dL POC Glucose (mg/dL) (70-110) mg/dL Assessment and Plan Plan: Acute ischemic CVA, status post TNK, with MRI showing evidence of right-sided infarct, in the area of the MCA. Paradoxic embolism cannot be ruled out as the patient had a patent PFO and right lower extremity DVT along with evidence of pulmonary embolism. Acute segmental and subsegmental right-sided pulmonary emboli, involving the right upper lobe and right middle lobe. Deep vein thrombosis, involving the distal common femoral vein on the right, with partial occlusion of the popliteal vein as well. Bilateral areas of consolidation worse in the right upper lobe and the right middle lobe with an area of cavitation. Pulmonary embolism/infarct/chronic infection/malignancy are within the differential diagnosis. I am a bit concerned about malignancy especially with a cavitary right midlung consolidative changes. Patent foramen ovale, with a right to left shunt, status post closure of the PFO Severe proximal left-sided ICA stenosis. Diabetes mellitus, type II, Recent coronavirus infection. History of prostate cancer, status post radiation. Previous history of tobacco use. Plan: Continue aspirin and Plavix Patient is currently on room air oxygen Will discuss anticoagulation with the neurologist Recommending outpatient PET/CT to characterize the pulmonary abnormalities with the possibility of this patient having malignancy as the main trigger for underlying renal thromboembolic disease and paradoxic embolism. Clinically and hemodynamically stable. This was discussed with the patient.
[2023-12-16 16:33] LABS: Glucose,Whole Blood 176 mg/dL (70-110)
[2023-12-16] MEDS: SODIUM CHLORIDE 0.9% 1,000 ML IV SCH (20:09)
[2023-12-16 20:27] LABS: Glucose,Whole Blood 104 mg/dL (70-110)
[2023-12-16] MEDS: APIXABAN 5 MG TAB PO SCH (20:31)
[2023-12-16] MEDS ORDERED: APIXABAN 5 MG TAB PO SCH (21:00)
--- NOTE | 2023-12-17 00:40 | P.PN ---
Subjective Progress Note Date: 12/16/23 68 years old male with past medical history of diabetes mellitus and prostate cancer Presents because of strokelike signs symptoms with left-sided weakness including arm and leg and left facial droop, patient also fell at home. Patient is awake alert able to talk freely but complaining from severe weakness in his left forearm and hand and to a lesser extent in his left leg. He feels abnormal feeling in his left arm as he is not feeling it. He denies any headache or dizziness but also there is some evidence of left- sided facial droop and deviation of the face to the right side Patient denies chest pain or dyspnea however on admission he had CTA of the head of the neck showing possible occlusions of the pulmonary artery hence CTA of the chest was obtained and was positive for pulmonary embolism of the right upper lobe right middle lobe with opacities suspicious for infarct Patient denies leg pain, coughing blood or hemoptysis, recent surgery. Patient denies chest pain or coughing No change in urine or bowel habits. No fever or chills He states he is currently alcohol or smoking cigarettes for about 2 years ago for now On admission neurologist wants to hold anticoagulation for 24 hours because of his acute stroke Currently patient not receiving IV fluid, currently patient not on aspirin or other antiplatelet medication. Not on anticoagulation Repeat CT of the brain is ordered for 2 PM today Patient denies any other new complaint 12/13/2023 Patient today keep improving with his left hemiparesis, no abnormal movements. Sensation abnormalities also improved No headache or dizziness no chest pain or dyspnea. He remains on heparin drip and aspirin 325 mg He had MRI of the brain yesterday showing: Acute/subacute CVA in the right MCA territory with scattered foci in the deep, white matter and a few areas involving the cortex probably the right parietal Echocardiogram with bubble study is requested and is pending Earlier echocardiogram was done showed ejection fraction 55 to 60% Vascular surgery input is appreciated and they recommended outpatient follow-up as the stenosed carotid artery is on the left side while the stroke is on the right side of the brain. 12/14/2023 Patient is seen and evaluated this morning with he is asymptomatic. Vital signs are reviewed and remain stable. Patient underwent NIKKI and that showed large PFO with aneurysmal interatrial septum. Given large PFO and with a DVT, cardiology going to schedule the patient to undergo percutaneous closure of PFO hopefully this coming Saturday. Patient remains on anticoagulation we will continue that. Patient is planned to be switched to oral anticoagulation after procedures completed on Saturday12/15/2023 Patient is seen and evaluated; denies any specific complaints Vital signs are reviewed and stable with temperature of 98.2, pulse 80, respiration 1860 and blood pressure 132/79 with O2 saturation of 92% with FiO2 of 21% Blood work reveals a WBC of 8.4, hemoglobin of 16.2 and platelet count of 380, sodium 135, potassium 4.9, BUNs/creatinine of 16/1.31 Patient remains on IV heparin; plan of care reviewed with patient and family with PFO closure tomorrow morning. Patient will remain on IV heparin till after the procedure after which plan is to transition to oral anticoagulation for DVT 12/16/2023 Patient is currently resting in the bed. Awake alert and oriented x 3. Currently on room air. No complaints of chest pain or shortness of breath. Left-sided weakness is completely resolved. Patient did have paradoxic embolism complicated by CVA. Lower extremity DVT involving distal common femoral vein. There was also partial occlusion of the popliteal vein. Patient is on heparin drip which is being changed to Eliquis. He is also on aspirin and Plavix. Laboratory test showed WBC 7.9 hemoglobin 15.6 and platelets 344, sodium 136 potassium 4.0 chloride 103 bicarb is 26 BUN 13 and creatinine 1.22 and blood sugar 134. Calcium 9.9. Current medications reviewed. Objective - Vital Signs Vital signs: Vital Signs Temp 97.8 F 12/16/23 19:35 Pulse 82 12/16/23 19:35 Resp 18 12/16/23 19:35 BP 118/62 12/16/23 19:35 Pulse Ox 93 L 12/16/23 19:35 FiO2 21 12/13/23 08:42 Intake & Output 12/16/23 12/16/23 12/17/23 06:59 18:59 06:59 Intake Total 789.416 506 Balance 789.416 506 Weight 81.4 kg Intake: IV 150 Intake, IV Titration 249.416 Amount Heparin Sod,Pork in 0.45% 249.416 NaCl 25,000 unit In 0.45 % NaCl 1 250ml.bag @ 12 UNITS/KG/HR 9.48 mls/hr IV .Q24H [facility] Rx#: [id number] Oral 540 356 Other: Voiding Method Toilet Toilet Toilet Urinal Urinal Urinal # Voids 1 1 - Exam PHYSICAL EXAMINATION: Patient is lying in the bed comfortably, no acute distress, awake alert and oriented.. HEENT: Normocephalic. Neck is supple. Pupils reactive. Nostrils clear. Oral cavity is moist. Neck reveals no JVD, carotid bruits, or thyromegaly. CHEST EXAMINATION: Trachea is central. Symmetrical expansion. Lung begum clear to auscultation and percussion. CARDIAC: Normal S1, S2 with no gallops. No murmurs ABDOMEN: Soft. Bowel sounds normal. No organomegaly. No abdominal bruits. Extremities: reveal no edema. No clubbing or cyanosis Neurologically awake, alert, oriented x3 with well-coordinated movements. No focal deficits noted Skin: No rash or skin lesions. Psychiatric: Coperative. Nonsuicidal Musculoskeletal: No joint swelling or deformity. Normal range of motion. - Labs CBC & Chem 7: 12/16/23 06:51 12/16/23 06:51 Labs: Abnormal Lab Results - Last 24 Hours (Table) 12/16/23 12/16/23 12/16/23 Range/Units 00:02 05:46 06:51 APTT 63.6 H (22.0-30.0) sec Sodium 136 L (137-145) mmol/L Glucose 134 H (74-99) mg/dL POC Glucose (mg/dL) 117 H (70-110) mg/dL 12/16/23 12/16/23 Range/Units 11:14 16:26 APTT (22.0-30.0) sec Sodium (137-145) mmol/L Glucose (74-99) mg/dL POC Glucose (mg/dL) 121 H 176 H (70-110) mg/dL Assessment and Plan Assessment: Acute ischemic stroke with left hemiparesis. MRI showed right-sided infarct in the area of the MCA. Paradoxical embolism cannot be excluded. Patient has patent PFO and right lower extremity DVT and evidence of PE Acute pulmonary embolism with no evidence of right heart strain. CT showed acute segmental and subsegmental right-sided PE involving the right upper lobe and right middle lobe and bilateral areas of consolidation worse in the right upper lobe and right middle lobe with an area of cavitation. Pulmonary infarction/malignancy/infection in the differential. Right lower extremity deep venous thrombosis, acute Right lung infarct, Differential diagnosis fungal infection and neoplasm Patent foramina ovale. S/p closure of PFO on 12/16/2023. Fall at home secondary to above Severe proximal left-sided ICA stenosis. Diabetes mellitus type II. History of prostate cancer status postradiation Prior history of tobacco use and asbestos exposure. DVT prophylaxis patient is already on heparin drip Plan: Patient is being continued on heparin drip, changed to anticoagulation with E liquis. Continue with aspirin and Plavix. Patient is s/p PFO repair on 12/16/2023. Vascular surgery recommended outpatient follow-up for left internal carotid artery stenosis Patient will need outpatient follow-up for repeat CT/PET scan for further evaluation of right middle lobe consolidation. Cardiology, neurology and pulmonary is on board. Labs and medication were reviewed DVT prophylaxis: Heparin GI Prophylaxis: Pepcid PT/OT: Recommended home health care versus inpatient rehab. Rehab team will be consulted Prognosis is guarded Time with Patient: Greater than 30
[2023-12-17 06:07] LABS: Glucose,Whole Blood 125 mg/dL (70-110)
--- NOTE | 2023-12-17 07:38 | XR ---
EXAMINATION TYPE: XR chest 2V DATE OF EXAM: 12/17/2023 COMPARISON: 12/09/2023 TECHNIQUE: PA and lateral views submitted. HISTORY: Shortness of breath FINDINGS: There are nodular appearing masses in the right upper lobe. Smaller nodules seen in the left lung. He art size normal. There is no overt failure. Underlying COPD. No pleural effusion or pneumothorax. Car diac valve surgery suggested. Arthropathy of shoulders. Heart size normal and no overt failure. Osseous structures demonstrate hype rtrophic and degenerative changes of the spine. IMPRESSION: 1. Bilateral pulmonary nodules largest mass seen in the right mid lung. Could represent neoplasm, pul monary infarct or pneumonia.
[2023-12-17 07:43] LABS: Basophils # (A) 0.1 k/uL (0-0.2); Basophils % (A) 1 %; Eosinophils # (A) 0.2 k/uL (0-0.7); Eosinophils % (A) 2 %; HCT 45.7 % (39.0-53.0); HGB 14.9 gm/dL (13.0-17.5); Lymphocytes # (A) 1.1 k/uL (1.0-4.8); Lymphocytes % (A) 12 %; MCH 30.2 pg (25.0-35.0); MCHC 32.6 g/dL (31.0-37.0); MCV 92.5 fL (80.0-100.0); Mean Platelet Volume 8.2; Monocytes # (A) 0.6 k/uL (0-1.0); Monocytes % (A) 7 %; Neutrophils # (A) 6.8 k/uL (1.3-7.7); Neutrophils % (A) 76 %; Platelet Count 329 k/uL (150-450); RBC 4.94 m/uL (4.30-5.90); RDW 15.4 % (11.5-15.5)
[2023-12-17 08:01] LABS: African American GFR (CKD) 69 (>60 ml/min/1.73 sqM); Anion Gap 5 mmol/L; Blood Urea Nitrogen 13 mg/dL (9-20); Calcium 9.6 mg/dL (8.4-10.2); Carbon Dioxide 28 mmol/L (22-30); Chloride 102 mmol/L (98-107); Glucose 118 mg/dL (74-99); Non-African American GFR(CKD) 60 (>60 ml/min/1.73 sqM); Potassium 4.4 mmol/L (3.5-5.1); Sodium 135 mmol/L (137-145)
[2023-12-17] MEDS: CLOPIDOGREL 75 MG TAB PO SCH (09:14)
--- NOTE | 2023-12-17 09:51 | P.PN ---
Subjective Progress Note Date: 12/16/23 12/16/2023: Patient was seen for a follow-up. Patient has been walking in the hallways and doing much better. Denies any focal symptoms. Family members were also present. Speech and language functions are normal. 12/14/2023: Patient was initially seen by Dr. Joel Bills. Please refer to his note for details. Patient is a 68-year-old left-handed male with presented with right MCA stroke who received TNK. Patient has left-sided weakness and was found to have DVT and PE. Patient is on heparin drip and aspirin. NIKKI showed large PFO with shunting. Dr. Bills has recommended closing. Patient was seen for a follow-up. Patient's family members were present. Patient denies any headache. He states he is doing "great". Family believes that patient has slight left-sided weakness, but has improved a lot. Patient to undergo PFO closure on Saturday. Patient states that he is could not sign his name but now he can do so. No new focal symptoms. Some of the workup during this hospital visit consisted of: Hemoglobin A1c 6.9. Lipid panel is triglyceride is 180, cholesterol is 184, LDL is 100.3 and HDL is 47. CT of the head which is reported as mild ventriculomegaly likely due to the central cervical atrophy. Moderate patchy burden of chronic small vessel ischemic disease. No acute intracranial abnormality seen. She reviewed the CT and I agree there is no acute or subacute stroke. CT angiography shows possible severe left ICA stenosis as well as possible PE in the right upper lobe. Showed abnormal focal opacity in the right upper lobe and neoplastic etiology and atypical fungal/mycobacterial infection are in the differential. Then later mentioned exam appears positive for segmental branch pulmonary emboli. Moderate atherosclerotic stenosis segment left ICA Carotid duplex is reported as DVT of the distal common femoral vein. Partial occlusion of the popliteal vein nonocclusive thrombus also felt to be present Repeat CT head post 24 TNK: Similar central cerebral atrophy and moderate burden of chronic small vessel ischemic disease. No acute intracranial abnormality seen. No evidence for hemorrhage transformation. MRI of the brain is reported as acute/subacute CVA in the right MCA territory with scattered foci in the deep white matter and a few areas involving the cortex probably at the right parietal and insular cortex. Nonspecific white matter changes, likely secondary to small vessel ischemic disease. I personally reviewed the MRI and I agree there is acute stroke over the right MCA territory. 2D echo: It is reported as normal left ventricle is function. Mild aortic stenosis. Consider transesophageal echocardiogram to definitely rule out cardiac source for CVA. Bubble study D echo: Positive bubble study with large number of bubbles crossing the interatrial septum. Objective - Vital Signs Vital signs: Vital Signs Temp 98.5 F 12/16/23 09:02 Pulse 87 12/16/23 14:00 Resp 16 12/16/23 14:00 BP 117/73 12/16/23 12:02 Pulse Ox 94 L 12/16/23 12:02 FiO2 21 12/13/23 08:42 Intake & Output 12/15/23 12/16/23 12/16/23 18:59 06:59 18:59 Intake Total 420 789.416 150 Balance 420 789.416 150 Weight 81.4 kg Intake: IV 150 Intake, IV Titration 249.416 Amount Heparin Sod,Pork in 0.45% 249.416 NaCl 25,000 unit In 0.45 % NaCl 1 250ml.bag @ 12 UNITS/KG/HR 9.48 mls/hr IV .Q24H [facility] Rx#: [id number] Oral 420 540 Other: Voiding Method Toilet Toilet Toilet Urinal Urinal Urinal # Voids 1 1 1 - Exam Patient's mental status, speech and language functions are normal. Patient can name and repeat. On cranial examination pupils are equal, round and reacting, visual begum are full, face appears normal, although with active testing there may be slight left-sided asymmetry very questionable. Tongue protrudes to midline. On muscle strength testing patient has left hand cupping and left elbow flexion. The strength appears normal in the arms and legs. Left hip flexion may be 5-as compared to the right. Sensory to touch is equal with no neglect. No ataxia for [id number] testing. - Labs CBC & Chem 7: 12/17/23 05:46 12/17/23 05:46 Labs: Abnormal Lab Results - Last 24 Hours (Table) 12/15/23 12/16/23 12/16/23 Range/Units 20:03 00:02 05:46 APTT 63.6 H (22.0-30.0) sec Sodium (137-145) mmol/L Glucose (74-99) mg/dL POC Glucose (mg/dL) 161 H 117 H (70-110) mg/dL 12/16/23 12/16/23 12/16/23 Range/Units 06:51 11:14 16:26 APTT (22.0-30.0) sec Sodium 136 L (137-145) mmol/L Glucose 134 H (74-99) mg/dL POC Glucose (mg/dL) 121 H 176 H (70-110) mg/dL Assessment and Plan Assessment: This is a 68-year-old gentleman who presents emergency department on 12/09/2023 because of left-sided weakness and slurred speech. A code stroke was activated and the patient was given TNKase. CT angiography shows possible left ICA stenosis of about 90%. It also seems the patient has a pulmonary embolism and DVT in the lower extremity. Acute stroke (left hemiparesis, left facial droop, subtle dysarhria) post IV TNK. MRI Brain reveal right MCA stroke. Etiology of stroke seems embolic---clinically he is improving compared to presentation but continues to have weakness. Has positive PFO with large number of bubble crossing on 2D echo. Left ICA stenosis on CTA but feel asymptomatic since I would expect right sided weakness. Acute Pulmonary embolism Acute DVT in lower extremity Underlying history of Diabetes mellitus Underlying history of Hypertension History of prostate cancer Former tobacco use and stopped smoking about 2 years ago Plan: Patient is on aspirin 325 daily, and Plavix 75 mg daily. Patient had undergone PFO closure today. Cardiology is requesting Eliquis for his DVT, PE and recent PFO closure. Patient's CVA is small, and MRI of the brain showed no hemorrhage, therefore probably will be safe to take Eliquis. Benefits more than risks. NIKKI revealed: 1. Aneurysmal interatrial septum with a large patent [place] ov[place] (PFO) and right to left shunt 2. Intact left atrial appendage with no thrombus 3. Overall normal intracardiac valves beside aortic sclerosis 4. Normal LV systolic function 5. No evidence of pericardial effusion Vascular surgery team for left ICA and they agree they feel asymptomatic and recommend outpatient follow-up Continue neurochecks Cardiac monitoring Will defer the rest of the medical management to primary and other specialist For DVT prophylaxis: Patient started on Eliquis 5 mg twice a day. I would definitely avoid high dose Eliquis 10 mg twice a day because of recent CVA. Suggest tapering off at least one antiplatelet medication, when cleared by cardiology. Discussed with cardiology team.
[2023-12-17 09:52] VITALS: RESP 16; TEMP 98.1
[2023-12-17 11:53] VITALS: BP 132/68; PULSE 102
[2023-12-17 12:05] LABS: Glucose,Whole Blood 107 mg/dL (70-110)
--- NOTE | 2023-12-17 12:05 | P.PN ---
Subjective HISTORY OF PRESENT ILLNESS: Patient examined this morning at the bedside. Patient currently denies chest pain or pressure. He denies shortness of breath. Telemetry reveals sinus mechanism. Right groin is soft with no hematoma noted. Vital signs are stable. PHYSICAL EXAM: VITAL SIGNS: Reviewed. GENERAL: Well-developed in no acute distress. NECK: Supple. No JVD or thyromegaly LUNGS: Respirations even and unlabored. Lungs essentially clear to auscultation bilaterally. HEART: Regular rate and rhythm. S1 and S2 heard. EXTREMITIES: Normal range of motion. No clubbing or cyanosis. Peripheral pulses intact. No lower extremity edema ASSESSMENT: Acute ischemic CVA Patent PFO, status post closure Right lower extremity DVT Diabetes History of prostate cancer PLAN: Continue dual antiplatelet therapy with aspirin and Plavix due to PFO closure Continue Eliquis for right lower extremity DVT. Dose decreased to 5 mg twice a day per neurology due to recent CVA Continue additional cardiac medications Repeat echo ordered this morning. Await results. Patient is stable for discharge home today from a cardiac standpoint Nurse practitioner note has been reviewed by physician. Signing provider agrees with the documented findings, assessment, and plan of care documented by [employer] as a scribe. Objective - Vital Signs Vital signs: Vital Signs Temp 98.1 F 12/17/23 09:05 Pulse 102 H 12/17/23 11:35 Resp 16 12/17/23 11:35 BP 132/68 12/17/23 11:35 Pulse Ox 95 12/17/23 11:35 FiO2 21 12/13/23 08:42 Intake & Output 12/16/23 12/17/23 12/17/23 18:59 06:59 18:59 Intake Total 506 10 360 Balance 506 10 360 Weight 81.4 kg Intake: IV 150 10 0.9 10 Oral 356 360 Other: Voiding Method Toilet Toilet Toilet Urinal Urinal Urinal # Voids 1 1 - Labs CBC & Chem 7: 12/17/23 05:46 12/17/23 05:46 Labs: Abnormal Lab Results - Last 24 Hours (Table) 12/16/23 12/17/23 12/17/23 Range/Units 16:26 05:46 06:05 Sodium 135 L (137-145) mmol/L Glucose 118 H (74-99) mg/dL POC Glucose (mg/dL) 176 H 125 H (70-110) mg/dL
--- NOTE | 2023-12-17 12:31 | P.PN ---
Subjective Progress Note Date: 12/17/23 Patient is a 68-year-old white male with past medical history significant for diabetes mellitus, prostate cancer status post radiation, former tobacco smoker quitting 2 years ago, and recent COVID infection. Patient was in the kitchen yesterday, he had a fall to the ground, hit his knees. His heard this, and found him on the ground. He could not stand back up by himself. He had slurred speech, left-sided facial droop, and left-sided weakness. 911 was called immediately, and a code stroke was initiated. Patient was transferred to [facility] on ER. Initial NIH score is 6. Noncontrast CT of the brain showed mild ventriculomegaly likely due to central cervical atrophy. Moderate patchy burden of chronic small vessel ischemic disease. No acute intracranial process seen. Follow-up CT angio of the head and neck showed severe, possibly up to 90% proximal left ICA stenosis. Dominant left vertebral artery. No large vessel intracranial arterial occlusion, significant stenosis, or aneurysm change otherwise seen. Patient did receive tenecteplase infusion per protocol. There were some incidental pulmonary findings noted on CTA of the head and neck, which initiated a chest CTA to be performed which showed right upper lung pulmonary emboli visualized in the segmental and subsegmental arterial vasculature. There are airspace opacities in the right upper and right middle lobes, somewhat peripheral with at least 1 area of cavitation. Given the patient's pulmonary emboli, these likely represent pulmonary infarcts. There was also incidentally some pleural plaquing noted. Patient is currently in the intensive care unit, on room air, in no acute distress. He continues to have a left-sided facial droop, with dysarthria, and left-sided hemiparesis. Blood pressure currently 138/70 mmHg. Heart rhythm appears normal sinus on bedside monitor, around 80 bpm. No respiratory distress or tachypnea. Patient denies any infectious symptoms such as fevers, cough, sputum production, chest pain, hemoptysis. Actually denies any pulmonary complaints. He is currently on room air. SpO2 is 93%. He did reportedly have a recent COVID infection back in September, when he was visiting in [place]. He did not go to the hospital at this time. Mode of transportation was driving. Denies any personal history of blood clots. Denies any recent surgeries or trauma. A follow-up venous Doppler did identify a DVT of the distal common femoral vein on the right, with a partial occlusion of the popliteal vein nonocclusive thrombus also felt to be present. CBC unremarkable. No leukocytosis. Baseline coagulation profile includes a PT of 11.3, INR of 1, APTT of 22.9. BMP includes: Sodium 134, potassium 4.4, chloride 101, serum bicarb 26, BUN 17, creatinine 1.11, glucose 128. Lactic acid 1.5. LFTs not elevated. Troponin less than 0.012. EKG on arrival shows normal sinus without any acute ischemic changes. Follow-up echocardiogram is pending. Neurochecks are continuing per protocol. Follow-up CT of the brain without contrast is pending for the morning. Progress note dated December 11, 2023. This is a patient who was seen in consultation yesterday. He presented to the emergency department, having fallen, in his kitchen. The patient apparently could not stand back up, had slurred speech, left facial droop, and left-sided weakness. Patient was seen in the emergency department, and was thought to have a CVA, and, was given tenecteplase. The patient is currently in the ICU, room 266. He is doing much better. The patient is on 2 L of oxygen. He is receiv ing IV heparin. In addition to the CVA, the patient was discovered to have pulmonary embolism, hence the IV heparin. Currently, he is doing much better as mentioned above. Current laboratory data includes a white count 7.5, hemoglobin 15.7, hematocrit 48.8, platelet count that was normal. PTT is 38.1. Glucose is 105. Blood cultures are currently negative. Brain CT shows similar central cerebral atrophy and moderate burden of chronic small vessel ischemic disease. Nothing acute was noted. MRI reveals an acute/subacute CVA in the middle right MCA territory, with scattered foci in the deep white matter and a few areas involving the cortex, probably the right parietal lobe and insular cortex. Progress note dated December 12, 2023. 68-year-old gentleman seen today in room 354. He was in the intensive care unit yesterday. The patient is currently on 2 L of oxygen. He is receiving IV h eparin. He is recovering from CVA, and pulmonary embolism. Clinically, he is much more stable, and of left-sided weakness, it is dramatically improved. Current labs include a PTT of 64, glucose is 128. The labs from yesterday have been reviewed. Blood cultures are negative. Progress note dated December 13, 2023. 68-year-old male seen today in room 354. The patient is scheduled to have a transesophageal echocardiogram today. The patient had a bubble study, which suggested a patent foramen ovale. He is on room air. He is not receiving any IV fluids. He is receiving IV heparin. The patient was initially admitted with a CVA, involving the left side of his body, and pulmonary embolism. No new laboratory data today other than a glucose of 104. Progress note dated December 14, 2023. 68-year-old male seen today room 354. The patient had a transesophageal echocardiogram done yesterday which revealed a large patent foramen ovale with a right to left shunt. The patient is apparently going to have a patch repair, done early next week. Currently, he is on room air. Is not receiving any IV fluids. He has no complaints. He denies any shortness of breath, cough, wheezing, chest tightness, or phlegm production. He also denies any chest pain or pressure. No new labs today other than a glucose of 172. Progress note dated December 15, 2023. 68-year-old male seen today in room 354. The patient is currently on room air. He is receiving IV heparin. He is scheduled to have the repair of his patent foramen ovale, done tomorrow, December 15. The patient denies any complaints, and states that he is feeling rather well. Laboratory data includes a white count 8.4, hemoglobin 16.2, hematocrit 49.5, and a normal platelet count. Sodium 135, potassium 4.9, chlorides 103, CO2 23, BUN 16, creatinine 1.31. The patient's glucose is 138. Calcium 10.2. The bubble study suggested a patent foramen ovale, which was confirmed by the transesophageal echocardiogram. In addition, there was a right to left shunt. 12/16/2023, the patient is being seen for a follow-up. The patient underwent a c losure of a PFO today. The patient did have paradoxic embolism complicated by CVA. The patient had a lower extremity DVT involving the distal common femoral vein. There was also partial occlusion of the popliteal vein. The CTA of the chest was reviewed. There is a filling defect in the right upper lobe pulmonary artery and other smaller filling defects are present in the segmental branches of the right upper and right middle lobe. However, there is wedge shaped pulmonary opacities and multiple airspace opacities in the right lung with an area of cavitation in the right midlung area measuring 4.4 x 2.5 cm in size. No significant consolidation on the left. The radiologist interpreted this as areas of possible pulmonary infarct. Infections or malignancies cannot be completely excluded. The patient has also calcification of the pleura which may reflect previous asbestos exposure. Currently, the patient is on room air oxygen with a pulse ox of 94% with a white cell count of 7.9 with a hemoglobin 15.6, BUN of 13 with a creatinine of 1.22. The patient is currently on aspirin 325 mg p.o. daily and Plavix 75 mg p.o. daily. 12/17/2023, the patient is being seen for a follow-up. The patient is doing well. He is ambulating. No respiratory difficulties. No cough or sputum prod uction. No new onset focal neurological deficit. Noted the patient was taken off the Plavix and was kept on aspirin and anticoagulation with Eliquis was started at a dose of 5 mg p.o. twice a day. No major pain or swelling lower extremities. The white cell count is at 9 with edema 14.9 and a platelet count of 329. BUN is 13 with a creatinine of 1.25 and a sodium level of 135. The patient is on room air oxygen. Denies having any specific complaints. Objective - Vital Signs Vital signs: Vital Signs Temp 98.1 F 12/17/23 09:05 Pulse 81 12/17/23 09:05 Resp 16 12/17/23 09:05 BP 117/63 12/17/23 09:05 Pulse Ox 92 L 12/17/23 09:05 FiO2 21 12/13/23 08:42 Intake & Output 12/16/23 12/17/23 12/17/23 18:59 06:59 18:59 Intake Total 506 10 Balance 506 10 Weight 81.4 kg Intake: IV 150 10 0.9 10 Oral 356 Other: Voiding Method Toilet Toilet Toilet Urinal Urinal Urinal # Voids 1 1 - Exam No acute distress, oriented 3. Patient is currently on room air. Saturations are 94 %. Patient remains on room air oxygen for now. HEENT examination is grossly unremarkable. Mucous membranes are moist. No oral lesions. Neck supple. Full range of motion. No adenopathy thyromegaly or neck vein distention. Cardiovascular examination reveals regular rhythm rate. S1-S2 normal. No S3 or S4. No discernible murmur noted. Lungs reveal clear breath sounds. Breath sounds are equal bilaterally. No adventitious lung sounds including wheezes rhonchi or crackles. Abdomen soft bowel sounds are heard. No masses or tenderness. Extremities are intact. No cyanosis clubbing or edema. Skin is without rash or lesion. Neurologic examination revealed minimal left-sided changes. - Labs CBC & Chem 7: 12/17/23 05:46 12/17/23 05:46 Labs: Abnormal Lab Results - Last 24 Hours (Table) 12/16/23 12/16/23 12/17/23 Range/Units 11:14 16:26 05:46 Sodium 135 L (137-145) mmol/L Glucose 118 H (74-99) mg/dL POC Glucose (mg/dL) 121 H 176 H (70-110) mg/dL 12/17/23 Range/Units 06:05 Sodium (137-145) mmol/L Glucose (74-99) mg/dL POC Glucose (mg/dL) 125 H (70-110) mg/dL Assessment and Plan Plan: Acute ischemic CVA, status post TNK, with MRI showing evidence of right-sided infarct, in the area of the MCA. Paradoxic embolism cannot be ruled out as the patient had a patent PFO and right lower extremity DVT along with evidence of pulmonary embolism. No new onset neurological deficits. The patient was started on anticoagulation with Eliquis and the patient is also on aspirin. The patient is postop day #1 following closure of the PFO. Acute segmental and subsegmental right-sided pulmonary emboli, involving the right upper lobe and right middle lobe. The patient was initiated on anticoagulation with Eliquis Deep vein thrombosis, involving the distal common femoral vein on the right, with partial occlusion of the popliteal vein as well. Bilateral areas of consolidation worse in the right upper lobe and the right middle lobe with an area of cavitation. Pulmonary embolism/infarct/chronic infection/malignancy are within the differential diagnosis. I am a bit concerned about malignancy especially with a cavitary right midlung consolida tive changes. Patent foramen ovale, with a right to left shunt, status post closure of the PFO Severe proximal left-sided ICA stenosis. Diabetes mellitus, type II, Recent coronavirus infection. History of prostate cancer, status post radiation. Previous history of tobacco use. Plan: Continue aspirin and anticoagulation with Eliquis Patient is currently on room air oxygen Will discuss anticoagulation with the neurologist Recommending outpatient PET/CT to characterize the pulmonary abnormalities with the possibility of this patient having malignancy as the main trigger for underlying renal thromboembolic disease and paradoxic embolism. Clinically and hemodynamically stable. This was discussed with the patient. No active pulmonary complaints at this point in time. No pleurisy. No h emoptysis. No shortness of breath. No chest pain. Discharge planning is in progress. Outpatient follow-up will be needed regarding the above discussed or infiltrates.
--- NOTE | 2023-12-17 12:57 | CA ---
Transthoracic Echo Report Name: Aleksandar Llanes Age: 68 Gender: M : 1955 Exam Date: 12/17/2023 09:35 Exam Location: [place] [facility] Ht (in): 70 Wt (lb): 179 Ordering Physician: Pankaj Dodson MD ([id number]) Attending/Referring Phys: Capper Machine Operator Taina Grullon, JOVANA Procedure CPT: Indications: Post ASD/PFO Insertion Cardiac Hx: Technical Quality: Fair Contrast 1: Total Dose (mL): Contrast 2: Total Dose (mL): MEASUREMENTS (Male / Female) Normal Values 2D ECHO LV Diastolic Diameter PLAX 4.1 cm 4.2 - 5.9 / 3.9 - 5.3 cm LV Systolic Diameter PLAX 3.0 cm IVS Diastolic Thickness 0.9 cm 0.6 - 1.0 / 0.6 - 0.9 cm LVPW Diastolic Thickness 1.3 cm 0.6 - 1.0 / 0.6 - 0.9 cm LV Relative Wall Thickness 0.5 RV Internal Dim ED PLAX 2.4 cm LA Systolic Diameter LX 3.2 cm 3.0 - 4.0 / 2.7 - 3.8 cm LV Diastolic Volume MOD 4C 58.2 cm??? LV Systolic Volume MOD 4C 23.0 cm??? LV Ejection Fraction MOD 4C 60.5 % LV Diastolic Length 4C 7.9 cm LV Systolic Length 4C 6.9 cm DOPPLER TR Peak Velocity 188.1 cm/s TR Peak Gradient 14.2 mmHg FINDINGS Left Ventricle Left ventricular ejection fraction is estimated at 55-60 %. Normal left ventricular wall motion. Left ventricular cavity size normal. No obvious regional wall motion abnormalities. Right Ventricle Right ventricular systolic pressure within normal limits. Right Atrium Normal right atrial size. PFO/ASD closure device is well-seated. A small left- to-right residual shunt is seen. Left Atrium Normal left atrial size. Mitral Valve Aortic Valve Tricuspid Valve Pulmonic Valve Pericardium No pericardial or pleural effusion. Aorta CONCLUSIONS Normal LV size and systolic function Previewed by: Dr. Eric Miller MD (Electronically Signed) Final Date: 17 December 2023 12:56
== END 2023-12-17 15:08 | disposition home health service (06) | DRG 981 ==
LOC: EC 14:51 → 2SICU 19:36 → 3SCARD 12-12 08:03
PROVIDERS: ADMIT Hospitalist; ATTEND Hospitalist
PROC: 3E03317 Introduction of Other Thrombolytic into Peripheral Vein, Percutaneous Approach (ICD-10-PCS; 2023-12-09)
PROC: B24BZZ4 Ultrasonography of Heart with Aorta, Transesophageal (ICD-10-PCS; 2023-12-13)
PROC: B2141ZZ Fluoroscopy of Right Heart using Low Osmolar Contrast (ICD-10-PCS; principal; 2023-12-16 08:30)
PROC: 02U53JZ Supplement Atrial Septum with Synthetic Substitute, Percutaneous Approach (ICD-10-PCS; principal; 2023-12-16 08:30)
DX: I63.411 Cerebral infarction due to embolism of right middle cerebral artery (principal); I26.94 Multiple subsegmental thrombotic pulmonary emboli without acute cor pulmonale; I26.99 Other pulmonary embolism without acute cor pulmonale; I82.431 Acute embolism and thrombosis of right popliteal vein; I25.3 Aneurysm of heart; G81.94 Hemiplegia, unspecified affecting left nondominant side; Q21.12 Patent foramen ovale; G93.89 Other specified disorders of brain; E11.9 Type 2 diabetes mellitus without complications; J44.9 Chronic obstructive pulmonary disease, unspecified; I10 Essential (primary) hypertension; I65.22 Occlusion and stenosis of left carotid artery; R29.706 NIHSS score 6; R47.1 Dysarthria and anarthria; E78.5 Hyperlipidemia, unspecified; K21.9 Gastro-esophageal reflux disease without esophagitis; N42.9 Disorder of prostate, unspecified; Z77.090 Contact with and (suspected) exposure to asbestos; Z79.84 Long term (current) use of oral hypoglycemic drugs; Z79.85 Long-term (current) use of injectable non-insulin antidiabetic drugs; Z79.899 Other long term (current) drug therapy; Z87.891 Personal history of nicotine dependence; Z85.46 Personal history of malignant neoplasm of prostate; Z86.16 Personal history of COVID-19; Z92.3 Personal history of irradiation; Z96.652 Presence of left artificial knee joint; Z88.8 Allergy status to other drugs, medicaments and biological substances; W18.30XA Fall on same level, unspecified, initial encounter; Y92.000 Kitchen of unspecified non-institutional (private) residence as the place of occurrence of the external cause
CPT/HCPCS: 36415; 37195; 70450; 70496; 70498; 70551; 71046; 71275; 76937; 80048; 80053; 80061; 83036; 83605; 84484; 85025; 85610; 85730; 87040; 93005; 93306; 93308; 93312; 93320; 93325; 93580; 93662; 93970; 99291

== ENCOUNTER 2024-03-19 05:35 | Day surgery (SDC) | payer MEDICARE ==
[2024-03-19] MEDS ORDERED: SODIUM CHLORIDE 0.9% 1,000 ML IV SCH (05:44)
[2024-03-19] MEDS: SODIUM CHLORIDE 0.9% 1,000 ML IV ONE (06:04)
[2024-03-19 06:15] LABS: Glucose,Whole Blood 114 mg/dL (70-110)
[2024-03-19 06:16] VITALS: RESP 16; TEMP 97.8
[2024-03-19 06:17] LABS: Basophils % (A) 1 %; Eosinophils % (A) 3 %; HCT 42.8 % (39.0-53.0); HGB 14.4 gm/dL (13.0-17.5); Lymphocytes # (A) 1.7 k/uL (1.0-4.8); Lymphocytes % (A) 19 %; MCH 32.2 pg (25.0-35.0); MCHC 33.7 g/dL (31.0-37.0); MCV 95.5 fL (80.0-100.0); Mean Platelet Volume 7.5; Monocytes % (A) 6 %; Neutrophils # (A) 6.6 k/uL (1.3-7.7); Neutrophils % (A) 71 %; Platelet Count 335 k/uL (150-450); RBC 4.48 m/uL (4.30-5.90); WBC 9.3 k/uL (3.8-10.6)
[2024-03-19 06:18] LABS: Eosinophils # (A) 0.3 k/uL (0-0.7); Monocytes # (A) 0.5 k/uL (0-1.0)
[2024-03-19 07:00] LABS: African American GFR (CKD) 66 (>60 ml/min/1.73 sqM); Anion Gap 7 mmol/L; Blood Urea Nitrogen 17 mg/dL (9-20); Calcium 9.6 mg/dL (8.4-10.2); Carbon Dioxide 28 mmol/L (22-30); Chloride 105 mmol/L (98-107); Glucose 121 mg/dL (74-99); Non-African American GFR(CKD) 57 (>60 ml/min/1.73 sqM); Potassium 4.4 mmol/L (3.5-5.1); Sodium 140 mmol/L (137-145)
[2024-03-19] MEDS ORDERED: LIDOCAINE 1% INJ 10MG/ML (20 ML MDV) ONE (07:16)
[2024-03-19] MEDS ORDERED: fentaNYL (PF) 50 MCG/ML 2 ML AMP ONE (07:35)
[2024-03-19] MEDS: LIDOCAINE 1% INJ 10MG/ML (20 ML MDV) SQ ONE (07:37)
[2024-03-19] MEDS ORDERED: VERAPAMIL 2.5 MG/ML 2 ML AMP ONE (07:37)
[2024-03-19] MEDS: MIDAZOLAM 2 MG/2 ML VIAL IVP ONE (07:39)
[2024-03-19] MEDS: fentaNYL (PF) 50 MCG/ML 2 ML AMP IVP ONE (07:39)
[2024-03-19] MEDS: VERAPAMIL SYRINGE (5 MG/10 ML) INTRAARTER ONE (07:40)
[2024-03-19] MEDS: IOPAMIDOL-370 100ML BTL INJ ONE (08:15)
--- NOTE | 2024-03-19 08:49 | P.OP ---
Date of Procedure: 03/19/24 Description of Procedure: Description of Procedure: Preoperative diagnosis: Carotid stenosis, discordance on imaging Postoperative diagnosis: Same Procedure: Ultrasound-guided right radial artery access Placement of catheter in ascending thoracic aorta Arch aortogram Selective right common carotid artery angiogram Moderate conscious sedation x 44 minutes with personal monitoring of certified RN administration and personal hemodynamic monitoring Surgeon: Earlene Sagastume D.O. EBL: Less than 5 cc IV fluids: See records Urine output: Not measured Drains: None Complications: None immediately apparent Condition: Stable to recovery Operative indication and findings: Patient is a 69-year-old male with previous cva from dvt and pfo with evidence of his carotids showing high-grade stenosis, imaging follow-up showed no significant stenosis, therefore at this time he is taken for an angiogram. Risks and benefits were discussed. They seemingly understood and was willing to proceed. Procedure in detail: Patient was taken to the special suite and placed in supine position. The right upper extremity was prepped and draped in usual sterile fashion. A preprocedural timeout was performed, all parties were in agreement. Using the ultrasound, the radial artery was identified. The skin overlying was anesthetized with 1% lidocaine plain. The artery was patent without significant calcific disease and a permanent image was stored. Under direct visualization, the artery was accessed and Seldinger technique was used to place a 5 slender sheath. Catheters and wires were then used to selectively place a catheter in the ascending thoracic aorta. Angiogram was performed. Multiple catheters and wires were used, the right common carotid was accessed and an image was performed. After satisfactory images, catheters and wires were removed. The sheath was removed and a TR band was placed. Angiographic images. The aorta appeared normal in course and caliber. Type I aortic arch. Brachiocephalic artery appears normal in course and caliber. Visualized portions of the subclavian artery are Normal. Vertebral artery appears normal. The right common carotid artery appears normal without significant disease. At the level of the right internal carotid artery there minimal stenosis. The left common carotid appears normal in course and caliber. The internal carotid artery has a short segment of approximately 82% stenosis. The left subclavian appears normal as well as the vertebral artery. Plan - Discharge Summary Discharge Rx Participant: No New Discharge Prescriptions: No Action Semaglutide [Ozempic] 0.5 mg SQ MO Ketoconazole 2% Shampoo [Nizoral] 1 applic TOPICAL MO Clopidogrel [Plavix] 75 mg PO DAILY #30 tab Atorvastatin [Lipitor] 40 mg PO HS Tamsulosin [Flomax] 0.4 mg PO DAILY Empagliflozin/Metformin HCl [Synjardy Xr 12.5-1,000 mg Tab] 1 tab PO DAILY Magnesium(Unknown Dose) 1 tab PO DAILY Apixaban [Eliquis] 5 mg PO BID #60 tab Discharge Medication List Empagliflozin/Metformin HCl [Synjardy Xr 12.5-1,000 mg Tab] 1 tab PO DAILY 12/09/23 [History] Ketoconazole 2% Shampoo [Nizoral] 1 applic TOPICAL MO 12/09/23 [History] Magnesium(Unknown Dose) 1 tab PO DAILY 12/09/23 [History] Semaglutide [Ozempic] 0.5 mg SQ MO 12/09/23 [History] Tamsulosin [Flomax] 0.4 mg PO DAILY 12/09/23 [History] Apixaban [Eliquis] 5 mg PO BID #60 tab 12/17/23 [Rx] Clopidogrel [Plavix] 75 mg PO DAILY #30 tab 12/17/23 [Rx] Atorvastatin [Lipitor] 40 mg PO HS 03/16/24 [History] Follow up Appointment(s)/Referral(s): Earlene Sagastume DO [STAFF PHYSICIAN] - 04/01/24 10:15 am (Mar AT 10:15 AM FOR FOLLOW UP APPOINTMENT.) Patient Instructions/Handouts: Moderate Sedation (DC), Angiography (DC), After Radial Heart Catheterization (GEN) Activity/Diet/Wound Care/Special Instructions: No driving for two days Ok to shower tomorrow but no baths, pools, lakes, doing dishes by hand for five days. (REMOVE DRESSING BEFORE SHOWER, NO NEED TO REAPPLY AFTER.) Signs of infection IE: fever, rash, drainage from puncture site, swelling go to ER/doctor for immediate evaluation. Avoid using right wrist/hand to bend, flex, lift greater than 5 lbs for five days. For Heavy Bleeding of puncture site apply firm direct pressure and return to ER. Do not attempt to drive self. low sodium/low fat diet medications as directed by DR SAGASTUME Discharge Disposition: HOME SELF-CARE
[2024-03-19 12:50] VITALS: BP 131/63; PULSE 70
--- NOTE | 2024-04-08 22:44 | IR ---
EXAMINATION TYPE: IR angio carotid cerv BILAT DATE OF EXAM: 03/19/2024 11:33 AM COMPARISON: Pre Operative Images if available both CT/MRI or plain film CLINICAL INDICATION: Male, 69 years old with history of carotid stenosis, 19min fluoro, 18.5Gycm2; TECHNIQUE: IR angio carotid cerv BILAT, multiple fluoroscopic images provided for procedure. Total fluoroscopy time: 11.0 min Total submitted images to PACS: 75 DAP: 10.1 mGym2 Gycm2 uGym2 cGycm2 or equivalent. FINDINGS: IMPRESSION: 1. Report was generated for administrative purposes only. 2. Please see the operative/procedural note for further details. [facility], , 04/08/2024 10:41 PM
== END 2024-03-19 11:47 | disposition home or self-care (01) ==
LOC: CATHCVL 05:35
PROVIDERS: ATTEND Surgery
DX: I65.29 Occlusion and stenosis of unspecified carotid artery (principal); Z79.01 Long term (current) use of anticoagulants; Z79.02 Long term (current) use of antithrombotics/antiplatelets; Z86.718 Personal history of other venous thrombosis and embolism; Z86.711 Personal history of pulmonary embolism; Z87.891 Personal history of nicotine dependence; Z79.899 Other long term (current) drug therapy; Z88.8 Allergy status to other drugs, medicaments and biological substances
CPT/HCPCS: 36222; 80048; 85025; C1769 ×3; C1894; J2250; J2001; J3010; Q9967

== ENCOUNTER → 2024-04-27 | Outpatient (CLI) | payer MEDICARE ==
[2024-04-28 02:22] LABS: Basophils # (A) 0.04 X 10*3/uL (0.00-0.10); Basophils % (A) 0.6 %; Eosinophils # (A) 0.15 X 10*3/uL (0.04-0.35); Eosinophils % (A) 2.2 %; HCT 41.6 % (39.6-50.0); HGB 14.4 g/dL (13.0-17.0); Lymphocytes # (A) 1.31 X 10*3/uL (0.90-5.00); Lymphocytes % (A) 19.3 %; MCH 32.5 pg (27.0-32.0); MCHC 34.6 g/dL (32.0-37.0); MCV 93.9 FL (80.0-97.0); Mean Platelet Volume 9.8 FL (9.5-12.2); Monocytes # (A) 0.58 X 10*3/uL (0.20-1.00); Monocytes % (A) 8.6 %; NRBC Per 100 WBC 0 X 10*3/uL (0.00-0.01); Neutrophils # (A) 4.68 X 10*3/uL (1.80-7.70); Platelet Count 266 X 10*3/uL (140-440); RBC 4.43 X 10*6/uL (4.40-5.60); RDW 13.6 % (11.5-14.5); WBC 6.78 X 10*3/uL (4.50-10.00)
== END | disposition home or self-care (01) ==
LOC: LABPAT 15:05
PROVIDERS: ATTEND Surgery
CPT/HCPCS: 85025; 86850; 86900; 86901

== ENCOUNTER 2024-04-30 05:53 | Inpatient (IN) | payer MEDICARE ==
[2024-04-23 15:09] VITALS: BMI 23.6
[2024-04-30] MEDS ORDERED: LACTATED RINGERS 1,000 ML IV SCH (06:23)
[2024-04-30] MEDS ORDERED: LIDOCAINE 1% (10MG/ML) FOR IV START INTRADERMA PRN (06:23)
[2024-04-30] MEDS ORDERED: ONDANSETRON 4 MG/2 ML VIAL IVP ONE (06:23)
[2024-04-30] MEDS ORDERED: HYDROmorphone 0.5 MG/0.5 ML SYRINGE IVP PRN (06:23)
== END 2024-04-30 06:35 | disposition home or self-care, planned readmission (81) | DRG 68 ==
LOC: 2ORMAIN 05:53
PROVIDERS: ADMIT Surgery; ATTEND Surgery
DX: I65.22 Occlusion and stenosis of left carotid artery (principal); Z53.09 Procedure and treatment not carried out because of other contraindication; Z87.891 Personal history of nicotine dependence; Z86.16 Personal history of COVID-19; Z79.01 Long term (current) use of anticoagulants; Z79.02 Long term (current) use of antithrombotics/antiplatelets; Z79.4 Long term (current) use of insulin; Z79.85 Long-term (current) use of injectable non-insulin antidiabetic drugs; Z79.84 Long term (current) use of oral hypoglycemic drugs

== ENCOUNTER 2024-05-12 05:55 | Inpatient (IN) | payer MEDICARE ==
[~2024-05-12 05:55] MED LIST: LIDOCAINE 1% (10MG/ML) FOR IV START INTRADERMA PRN
[2024-05-12] MEDS: IV FLUID CONTINUATION 1,000 ML IV ONE ×4 (06:09)
[2024-05-12 06:29] LABS: Glucose,Whole Blood 113 mg/dL (70-110)
[2024-05-12] MEDS: DEXAMETHASONE SOD PHOSPHATE 4 MG/ML 1 ML VIAL IV ONE (06:45)
[2024-05-12] MEDS: LACTATED RINGERS 1,000 ML IV SCH (06:45)
[2024-05-12] MEDS: ONDANSETRON 4 MG/2 ML VIAL IVP ONE (06:45)
[2024-05-12] MEDS: MIDAZOLAM 2 MG/2 ML VIAL IV ONE (06:47)
[2024-05-12] MEDS ORDERED: fentaNYL (PF) 50 MCG/ML 2 ML AMP IV PRN (07:00)
--- NOTE | 2024-05-12 07:19 | P.HPIHPCON ---
History of Present Illness H&P Date: 05/12/24 Patient is a 69-year-old male with a history of high-grade left internal carotid artery stenosis. Over the summer he had a DVT, PE and PFO causing a stroke and at the time was found to have carotid stenosis as well. He was treated starting in December for his issues and did have treatment of his PFO with appropriate antiplatelet therapy following. He had an ultrasound of his carotids which again showed high-grade stenosis which was discordant from other imaging therefore a catheter directed angiogram was performed. This revealed 82% stenosis of his left internal carotid artery therefore at this time the recommendation was to go forward with intervention. Through long discussion and shared decision making, the patient was more desirous of a carotid endarterectomy rather than a transcarotid artery or transfemoral carotid stent. I think it is reasonable given his younger age and overall health otherwise. Through the summer he has been on blood thinner and antiplatelet medications. Initially at last visit for surgery, there was some miscommunication regarding my plan for anticoagulation cessation. It was felt that the patient had been on sufficient anticoagulation therapy for his subacute DVT found in December therefore no bridging was recommended from my standpoint. A discussion was had with cardiology and he was able to hold his Plavix medication. Unfortunately there was no cessation of his anticoagulation therefore that time the procedure was rescheduled. Today the patient is here after having held his anticoagulation for 2 days and Plavix for 5 days. He denies any changes since our last visit. Denies any questions Consent for Procedure: I have explained the operation/procedure to the patient, including the risks, benefits, side effects, alternative therapies (including not receiving the proposed treatment or service), the likelihood of the patient achieving his/her goals, and potential recuperation problems for the procedure/sedation/analgesia, as well as any blood products, if indicated. I also explained to the patient the risks, benefits and side effects of the alternatives, as well as the risks related to not receiving the proposed procedure, care, treatment, or services. Past Medical History Past Medical History: Cancer, COPD, CVA/TIA, Diabetes Mellitus, Deep Vein Thrombosis (DVT), Hyperlipidemia, Osteoarthritis (OA), Prostate Disorder, Pulmonary Embolus (PE), Sleep Apnea/CPAP/BIPAP Additional Past Medical History / Comment(s): recent wt loss.stroke December 09 2023, no residuals per . prostate cancer treated with radiation couple of hears ago. "hole in my heart discovered December 2023 after stroke." Does not use CPAP. History of Any Multi-Drug Resistant Organisms: None Reported Past Surgical History: Appendectomy, Joint Replacement Additional Past Surgical History / Comment(s): L knee replacement, Hole in heart found after pt had stroke and repaired.12/16/23. Colonoscopy x4. Past Anesthesia/Blood Transfusion Reactions: No Reported Reaction Additional Past Anesthesia/Blood Transfusion Reaction / Comment(s): No hx of blood transfusion. Smoking Status: Former smoker - Past Family History Mother Additional Family Medical History / Comment(s): gout Medications and Allergies Home Medications Medication Instructions Recorded Confirmed Type Empagliflozin/Metformin HCl 1 tab PO DAILY 12/09/23 05/12/24 History [Synjardy Xr 12.5-1,000 mg Tab] Ketoconazole 2% Shampoo [Nizoral] 1 applic TOPICAL MO 12/09/23 05/12/24 History Magnesium(Unknown Dose) 1 tab PO DAILY 12/09/23 05/12/24 History Semaglutide [Ozempic] 0.5 mg SQ MO 12/09/23 05/12/24 History Tamsulosin [Flomax] 0.4 mg PO DAILY 12/09/23 05/12/24 History Apixaban [Eliquis] 5 mg PO BID #60 tab 12/17/23 05/12/24 Rx Clopidogrel [Plavix] 75 mg PO DAILY #30 tab 12/17/23 05/12/24 Rx Atorvastatin [Lipitor] 40 mg PO HS 03/16/24 05/12/24 History Fluticasone/Umeclidin/Vilanter 1 puff INHALATION QAM PRN 04/23/24 05/12/24 History [Trelegy Ellipta 200-62.5-25] Zycan(Unknown Dose) 1 dose PO QAM 04/23/24 05/12/24 History Allergies Allergy/AdvReac Type Severity Reaction Status Date / Time diphenhydramine Allergy Rapid Verified 05/12/24 06:06 [From Benadryl] Heart Rate Surgical - Exam Vital Signs Temp Pulse Resp BP Pulse Ox 98.2 F 65 16 132/70 96 05/12/24 06:26 05/12/24 06:26 05/12/24 06:26 05/12/24 06:26 05/12/24 06:26 General Is a pleasant cooperative male in no acute distress. Heart appears regular. Lungs are clear. Abdomen is soft. Extremity show no clubbing, cyanosis or edema. Cranial nerves II through XII grossly intact Results - Labs Abnormal Lab Results - Last 24 Hours (Table) 05/12/24 Range/Units 06:28 POC Glucose (mg/dL) 113 H (70-110) mg/dL Assessment and Plan Assessment: High-grade left internal carotid artery stenosis History of DVT History of PE History of PFO History of CVA Plan: Will plan today to go forward with left carotid endarterectomy and patch angioplasty. Risks and benefits discussed with the patient and the who seemingly understand the plan and are willing to proceed. See HPI for further pertinent information.
[2024-05-12] MEDS ORDERED: LIDOCAINE 1% INJ 10MG/ML (20 ML MDV) ONE (07:22)
[2024-05-12] MEDS ORDERED: ROCURONIUM 10 MG/ML (5 ML VIAL) IV ONE (07:22)
[2024-05-12] MEDS ORDERED: SUGAMMADEX SODIUM 200 MG/2 ML SDV IV ONE (07:22)
[2024-05-12] MEDS ORDERED: HEPARIN SODIUM,PORCINE 10,000 UNIT/ML 1 ML VIAL ONE (07:22)
[2024-05-12] MEDS ORDERED: NITROGLYCERIN-D5W PMX 50 MG/250 ML BOTTLE IV ONE (07:22)
[2024-05-12] MEDS ORDERED: LABETALOL 5 MG/ML VIAL MDV ONE (07:22)
[2024-05-12] MEDS ORDERED: ePHEDrine 50 MG/ML 1 ML VIAL ONE (07:22)
[2024-05-12] MEDS ORDERED: SUCCINYLCHOLINE CHLORIDE 200 MG/10 ML VIAL IV ONE (07:22)
[2024-05-12] MEDS ORDERED: PROPOFOL 10 MG/ML 20 ML VIAL IV ONE (07:22)
[2024-05-12] MEDS ORDERED: fentaNYL (PF) 50 MCG/ML 2 ML AMP ONE (07:22)
[2024-05-12] MEDS ORDERED: ESMOLOL 100 MG/10 ML VIAL ONE (07:22)
[2024-05-12] MEDS ORDERED: PHENYLEPHRINE 10 MG/ML VIAL ONE (07:22)
[2024-05-12] MEDS ORDERED: PROTAMINE SULFATE 10 MG/ML 5 ML VIAL ONE (07:22)
[2024-05-12] MEDS: HEPARIN SODIUM (1,000 UNIT/ML) 2,000 UNIT in SODIUM CHLORIDE 0.9% 1,000 ML IRRIGATION ONE (08:42)
[2024-05-12] MEDS: THROMBIN (BOVINE) 5,000 UNIT VIAL TOPICAL ONE (08:43)
[2024-05-12] MEDS: ceFAZolin 2 GM in SODIUM CHLORIDE 0.9% 500 ML 500 ML IRRIGATION ONE (08:43)
[2024-05-12] MEDS ORDERED: BENZOCAINE/MENTHOL LOZENG 1 EACH LOZENGE MUCOUS MEM PRN (10:00)
--- NOTE | 2024-05-12 10:00 | P.OP ---
Date of Procedure: 05/12/24 Description of Procedure: Preoperative Diagnosis: High-grade left internal carotid artery stenosis Postoperative Diagnosis: Same Procedure: Left carotid endarterectomy with patch angioplasty Anesthesia: GET Surgeon: Earlene Acevedo DO Estimated Blood Loss (ml): 35 cc IV Fluids: See records Urine Output: See records Specimen: Left carotid plaque, left cervical lymph nodes Condition: stable Disposition: PACU Findings and indications: Patient is a 69-year-old male who earlier this summer had a DVT, PE and stroke from a subsequent PFO. At the time and workup evaluation was found to have left carotid stenosis, an angiogram had also been performed showing greater than 80% stenosis. Risks and benefits of going forward with a carotid intervention were discussed. After shared decision making the patient wished to go forward with a carotid endarterectomy. Procedure in detail: the patient is brought to the operative suite and laid in a supine position. The area of the neck was prepped and draped in usual sterile fashion after appropriate anesthetic was performed. A timeout was performed in normal fashion antibiotics were administered prior to incision. An oblique incision was then created just anterior to the sternocleidomastoid musculature with a 10 blade scalpel and dissection was carried down to the carotid sheath. The carotid sheath was then entered after facial vein was located and suture ligated in normal fashion. The common carotid, internal carotid, external carotid and superior thyroid arteries were located and dissected free in a meticulous fashion circumferentially and controlled with vessel loops. Attention was then placed to locating the vagus nerve as well as hypoglossal nerve which were both spared. Once controlled, patient was administered heparin and followed with ACTs for appropriate heparinization. Once ACT was appropriate, the proximal and distal aspects of the dissection were then controlled with vascular clamps. Arteriotomy was then created with 11 blade scalpel and extended with Perry Archer scissors. The cerebral oximetry had previously been placed prior to intubation and did not have significant change once clamped therefore no shunt was required. An endarterectomy was then performed with a Sanderson elevator. The plaque was transected proximally and then feathered at the distal aspect of the internal carotid artery and removed. The distal portion was also tacked with 7- 0 sutures of Prolene. The area was copiously irrigated with heparinized saline and all free debris was removed. A 0.8 x 8 cm bovine pericardial patch was then chosen and patch angioplasty was performed with 6-0 Prolene suture in a running fashion. Prior to last sutures being placed the inflow was released flushing any free debris out of the patch. This was reclamped and the internal carotid artery was released revealing good brisk flow and was once again reclamped. The external carotid and superior thyroid artery were then released followed by the common carotid artery to allow any free debris to be flushed into the external system. Final sutures were placed and secured. Internal carotid artery control was then released. Good pulsatile flow was noted through the patch and a Doppler was utilized demonstrating good brisk flow into the internal, external carotid arteries without any signs of obstruction. Hemostasis was then assured with interrupted sutures of 6-0 Prolene as well as thrombin and Gelfoam. A 10-[place] WINSOME drain was then placed in normal fashion and secured with 3-0 nylon suture. The incision was then closed in a multilayer fashion after hemostasis was assured. The skin was then cleansed and dressings were placed. Patient tolerated the procedure well and was following commands and moving all extremities. Patient was then sent to PACU for recovery.
[2024-05-12] MEDS: HYDROmorphone 0.5 MG/0.5 ML SYRINGE IVP PRN (10:18)
--- NOTE | 2024-05-12 13:32 | P.ANPRN ---
Procedure Note - Anesthesia - Invasive Line Left Arterial Line Time Out Performed: Yes Date of Procedure: 05/12/24 Time of Procedure: 06:51 Location of Patient: PreOp Preparation: Sterile Prep, Sterile Dressing Arterial Line Location: Radial Ultrasound Used: No Purpose - Visualization and Identification of Vasculature: No Image Stored and Saved: No Narrative: Invasive line placement per sterile protocol utilized.
[2024-05-12] MEDS ORDERED: DEXTROSE 50% SYRINGE 50 ML IVP PRN ×2 (14:08)
[2024-05-12] MEDS ORDERED: IPRATROPIUM-ALBUTEROL 3 ML NEB INHALATION PRN (14:09)
--- NOTE | 2024-05-12 14:34 | P.PN ---
Progress Note - Text Progress Note Date: 05/12/24 Seen and examined post left carotid endarterectomy with patch angioplasty. He is currently on selective care unit, he is without any focal deficits. Blood pressures have been stable. He is tolerating clear liquids without any difficulty swallowing. No swelling in the neck. WINSOME drain in place with approximately 5 mL of sanguinous drainage. The impression and plan of care has been dictated as directed. I performed a history and examination of this patient, discussed the same with the dictator. I agree with the dictator's note ,documented as a scribe. Any additional findings or plans will be noted.
[2024-05-12] MEDS: IPRATROPIUM 0.5 MG/2.5 ML NEBU INHALATION SCH (15:30)
[2024-05-12] MEDS: HEPARIN SODIUM,PORCINE 5,000 UNIT/ML 1 ML VIAL SQ SCH (15:52)
[2024-05-12 16:43] LABS: Glucose,Whole Blood 201 mg/dL (70-110)
[2024-05-12] MEDS: INSULIN ASPART (NovoLOG) 100 UNIT/ML VIAL SQ SCH (16:57)
[2024-05-12] MEDS: MORPHINE SULFATE 2 MG/ML SYRINGE IVP PRN (16:59)
[2024-05-12] MEDS: CLOPIDOGREL 75 MG TAB PO SCH (16:59)
[2024-05-12 19:58] LABS: Glucose,Whole Blood 196 mg/dL (70-110)
[2024-05-12] MEDS: ACETAMINOPHEN TAB 325 MG TAB PO PRN (20:09)
[2024-05-12] MEDS: ATORVASTATIN 40 MG TAB PO SCH (20:09)
--- NOTE | 2024-05-12 21:41 | P.CONS ---
History of Present Illness - Reason for Consult Consult date: 05/12/24 Medical management - Chief Complaint Left carotid endarterectomy - History of Present Illness Patient is a 69-year-old male with a past medical history of DVT/PE on anticoagulation with Eliquis, recent history of CVA/TIA in December 2023, found to have PFO and left carotid stenosis at the time, prostate cancer status postradiation 2 years ago, osteoarthritis, obstructive sleep apnea, prior history of smoking. Patient was admitted to the hospital for elective left carotid endarterectomy with patch angioplasty. Patient was found to have a due to for stenosis of his left internal carotid artery. Patient tolerated the procedure well. Denied any complaints of headache or dizziness. Pain is fairly controlled. No cough or sputum production. No nausea vomiting. Blood sugar is 201 this afternoon... Review of Systems Constitutional: Patient denies any fever or chills . No generalized weakness or weight loss. Abdomen: Patient denied nausea vomiting and diarrhea and abdominal pain. Cardiovascular: Patient denies any chest pain or short of breath no palpitations. Respiratory: patient denied any cough or sputum production. No shortness of breath Neurologic: Patient denied any numbness or tingling. no headache. Musculoskeletal: Patient denies any complaints of joint swelling or deformity. Skin: Negative Psychiatric: Negative Endocrine: No heat or cold intolerance. No recent weight gain. Genitourinary: No dysuria or hematuria. All other 14 point ROS negative except the above Past Medical History Past Medical History: Cancer, COPD, CVA/TIA, Diabetes Mellitus, Deep Vein Thrombosis (DVT), Hyperlipidemia, Osteoarthritis (OA), Prostate Disorder, Pulmonary Embolus (PE), Sleep Apnea/CPAP/BIPAP Additional Past Medical History / Comment(s): recent wt loss.stroke December 09 2023, no residuals per . prostate cancer treated with radiation couple of hears ago. "hole in my heart discovered December 2023 after stroke." Does not use CPAP. History of Any Multi-Drug Resistant Organisms: None Reported Past Surgical History: Appendectomy, Joint Replacement Additional Past Surgical History / Comment(s): L knee replacement, Hole in heart found after pt had stroke and repaired.12/16/23. Colonoscopy x4. Past Anesthesia/Blood Transfusion Reactions: No Reported Reaction Additional Past Anesthesia/Blood Transfusion Reaction / Comm: No hx of blood transfusion. Smoking Status: Former smoker - Past Family History Mother Additional Family Medical History / Comment(s): gout Medications and Allergies Home Medications Medication Instructions Recorded Confirmed Type Empagliflozin/Metformin HCl 1 tab PO DAILY 12/09/23 05/12/24 History [Synjardy Xr 12.5-1,000 mg Tab] Ketoconazole 2% Shampoo [Nizoral] 1 applic TOPICAL MO 12/09/23 05/12/24 History Magnesium(Unknown Dose) 1 tab PO DAILY 12/09/23 05/12/24 History Semaglutide [Ozempic] 0.5 mg SQ MO 12/09/23 05/12/24 History Tamsulosin [Flomax] 0.4 mg PO DAILY 12/09/23 05/12/24 History Apixaban [Eliquis] 5 mg PO BID #60 tab 12/17/23 05/12/24 Rx Clopidogrel [Plavix] 75 mg PO DAILY #30 tab 12/17/23 05/12/24 Rx Atorvastatin [Lipitor] 40 mg PO HS 03/16/24 05/12/24 History Fluticasone/Umeclidin/Vilanter 1 puff INHALATION QAM PRN 04/23/24 05/12/24 History [Trelegy Ellipta 200-62.5-25] Zycan(Unknown Dose) 1 dose PO QAM 04/23/24 05/12/24 History Allergies Allergy/AdvReac Type Severity Reaction Status Date / Time diphenhydramine Allergy Rapid Verified 05/12/24 06:06 [From Benadryl] Heart Rate Physical Exam Vitals: Vital Signs Temp Pulse Pulse Resp BP BP Pulse Ox 05/12/24 21:19 98.6 F 65 14 122/59 95 05/12/24 19:21 97.8 F 58 L 16 119/69 96 05/12/24 19:00 99.1 F 82 110/68 96 05/12/24 16:02 114/66 05/12/24 16:00 97.6 F 73 17 120/58 98 05/12/24 15:48 64 05/12/24 15:38 68 05/12/24 13:02 97.5 F L 71 16 138/70 99 05/12/24 12:40 71 12 126/67 95 05/12/24 12:15 74 12 118/61 95 05/12/24 11:45 70 12 121/60 96 05/12/24 11:30 74 12 119/56 97 05/12/24 11:15 72 12 119/57 97 05/12/24 11:00 70 12 130/65 95 05/12/24 10:45 77 12 128/60 95 05/12/24 10:30 71 12 125/59 94 L 05/12/24 10:15 72 12 116/56 96 05/12/24 10:01 72 12 139/64 100 05/12/24 09:46 97 F L 76 12 154/66 100 05/12/24 06:56 69 16 129/62 94 L 05/12/24 06:26 98.2 F 65 16 132/70 96 Intake and Output 05/12/24 05/12/24 05/12/24 06:59 14:59 22:59 Intake Total 200 1752 358 Output Total 230 325 Balance 200 1522 33 Intake: IV 200 1752 Oral 358 Output: Drainage 10 Left Neck 10 Urine 200 325 Estimated Blood Loss 20 Other: Voiding Method Indwelling Catheter Weight 79.2 kg PHYSICAL EXAMINATION: Patient is lying in the bed comfortably, no acute distress, awake alert and oriented.. HEENT: Normocephalic. Neck is supple. Left carotid surgical site bandaged with drain catheter. Pupils reactive. Nostrils clear. Oral cavity is moist. Neck reveals no JVD, carotid bruits, or thyromegaly. CHEST EXAMINATION: Trachea is central. Symmetrical expansion. Lung begum clear to auscultation and percussion. CARDIAC: Normal S1, S2 with no gallops. No murmurs ABDOMEN: Soft. Bowel sounds normal. No organomegaly. No abdominal bruits. Extremities: reveal no edema. No clubbing or cyanosis Neurologically awake, alert, oriented x3 with well-coordinated movements. No focal deficits noted Skin: No rash or skin lesions. Psychiatric: Coperative. Nonsuicidal Musculoskeletal: No joint swelling or deformity. Normal range of motion. Results Labs: Abnormal Lab Results - Last 24 Hours (Table) 05/12/24 05/12/24 05/12/24 Range/Units 06:28 16:42 19:56 POC Glucose (mg/dL) 113 H 201 H 196 H (70-110) mg/dL Assessment and Plan Assessment: Status post left carotid endarterectomy with patch angioplasty postoperative day 0 Recent history of CVA/TIA with no residual defects. Patient was found to have PFO and left carotid stenosis. Diabetes type 2. Patient is on Ozempic Hypertension Prostate cancer status postradiation couple years ago Obstructive sleep apnea not on CPAP Prior history of smoking GI and DVT prophylaxis. Patient is already on Eliquis. Plan: Patient will be continued on telemetry. Continue with pain management and encourage incentive spirometry. WINSOME drain with minimal serosanguineous fluid. Current with home medications. Patient was started back on Plavix and Eliquis. Continue with DuoNebs and Symbicort. Follow-up CBC and BMP tomorrow. Monitor H&H. Further recommendations based on the clinical course. Thank you kindly for your consult. Time with Patient: Greater than 30
[2024-05-12] MEDS: SYMBICORT 80-4.5 MCG INHALER INHALATION SCH (22:06)
[2024-05-13] MEDS: MAG HYDROX/AL HYDROX/SIMETH 30 ML CUP PO PRN (05:22)
[2024-05-13 06:19] LABS: Glucose,Whole Blood 163 mg/dL (70-110)
[2024-05-13 07:57] LABS: Basophils % (A) 0 %; Eosinophils % (A) 0 %; HCT 41.6 % (39.0-53.0); HGB 13.3 gm/dL (13.0-17.5); Lymphocytes # (A) 1.2 k/uL (1.0-4.8); Lymphocytes % (A) 7 %; MCH 30.9 pg (25.0-35.0); MCV 96.7 fL (80.0-100.0); Mean Platelet Volume 7.2; Monocytes # (A) 0.8 k/uL (0-1.0); Monocytes % (A) 5 %; Neutrophils # (A) 14.2 k/uL (1.3-7.7); Neutrophils % (A) 88 %; Platelet Count 260 k/uL (150-450); RDW 13.4 % (11.5-15.5); WBC 16.2 k/uL (3.8-10.6)
[2024-05-13 08:07] LABS: African American GFR (CKD) 65 (>60 ml/min/1.73 sqM); Anion Gap 7 mmol/L; Blood Urea Nitrogen 22 mg/dL (9-20); Calcium 9.2 mg/dL (8.4-10.2); Carbon Dioxide 28 mmol/L (22-30); Chloride 101 mmol/L (98-107); Glucose 183 mg/dL (74-99); Non-African American GFR(CKD) 56 (>60 ml/min/1.73 sqM); Potassium 4.5 mmol/L (3.5-5.1); Sodium 136 mmol/L (137-145)
[2024-05-13] MEDS: APIXABAN 5 MG TAB PO SCH (08:53)
[2024-05-13] MEDS: TAMSULOSIN 0.4 MG CAP.ER.24H PO SCH (08:53)
[2024-05-13 08:56] VITALS: PULSE 68
[2024-05-13 09:02] VITALS: BP 101/57; RESP 16; TEMP 98.6
--- NOTE | 2024-05-18 08:36 | P.DS ---
Providers Date of admission: 05/12/24 05:55 Expected date of discharge: 05/13/24 Attending physician: Earlene Acevedo DO Consults: 05/12/24 10:00 Consult Physician Routine Consulting Provider: Reid Krause Reason/Comments: med mgmnt Do you want consulting provider notified?: Yes Primary care physician: [facility] Course: 69-year-old male with a recent history of DVT, PE and stroke from subsequent PFO was found to have left carotid stenosis greater than 80% stenosis. He was scheduled for elective left carotid endarterectomy with patch angioplasty. He is postop day #1. He is doing well, no focal deficits. Eating without difficulty. Blood pressures have been stable. He has been up and ambulating without difficulty. Acevedo catheter discontinued this morning. Will await voiding WINSOME drain with minimal serosanguineous output. Plan for dischaprior to discharge. rge home today. Exam General appearance: The patient is alert, oriented, appears in no acute distress. HET: Head is normocephalic and atraumatic. Pupils are equal and reactive. Neck: Supple. Left neck with incision well-approximated, WINSOME drain in place. Heart: Regular. Lungs: Equal expansion, normal respiratory effort. Abdomen: Soft, nontender, nondistended. Extremities: Normal skin color and turgor. Neurological: No focal deficits. Strength and sensation are grossly intact. Assessment 1. High-grade left internal carotid artery stenosis status post left carotid endarterectomy with patch angioplasty 2. 2. History DVT and PE 3. History PFO 4. Diabetes mellitus Plan 1. Discontinue WINSOME drain 2. Continue current medications 3. Discharge instructions reviewed with patient 4. Plan for discharge today The impression and plan of care has been dictated as directed. Dr. Acevedo I performed a history and examination of this patient, discussed the same with the dictator. I agree with the dictator's note ,documented as a scribe. Any additional findings or plans will be noted. Procedures: Left carotid endarterectomy with patch angioplasty Patient Condition at Discharge: Stable Plan - Discharge Summary Discharge Rx Participant: No New Discharge Prescriptions: New Acetaminophen Tab [Tylenol] 650 mg PO Q4HR PRN tab PRN Reason: Pain Continue Semaglutide [Ozempic] 0.5 mg SQ MO Ketoconazole 2% Shampoo [Nizoral] 1 applic TOPICAL MO Clopidogrel [Plavix] 75 mg PO DAILY #30 tab Atorvastatin [Lipitor] 40 mg PO HS Tamsulosin [Flomax] 0.4 mg PO DAILY Empagliflozin/Metformin HCl [Synjardy Xr 12.5-1,000 mg Tab] 1 tab PO DAILY Magnesium(Unknown Dose) 1 tab PO DAILY Apixaban [Eliquis] 5 mg PO BID #60 tab Fluticasone/Umeclidin/Vilanter [Trelegy Ellipta 200-62.5-25] 1 puff INHALATION QAM PRN PRN Reason: Shortness Of Breath Zycan(Unknown Dose) 1 dose PO QAM Discharge Medication List Empagliflozin/Metformin HCl [Synjardy Xr 12.5-1,000 mg Tab] 1 tab PO DAILY 12/09/23 [History] Ketoconazole 2% Shampoo [Nizoral] 1 applic TOPICAL MO 12/09/23 [History] Magnesium(Unknown Dose) 1 tab PO DAILY 12/09/23 [History] Semaglutide [Ozempic] 0.5 mg SQ MO 12/09/23 [History] Tamsulosin [Flomax] 0.4 mg PO DAILY 12/09/23 [History] Apixaban [Eliquis] 5 mg PO BID #60 tab 12/17/23 [Rx] Clopidogrel [Plavix] 75 mg PO DAILY #30 tab 12/17/23 [Rx] Atorvastatin [Lipitor] 40 mg PO HS 03/16/24 [History] Fluticasone/Umeclidin/Vilanter [Trelegy Ellipta 200-62.5-25] 1 puff INHALATION QAM PRN 04/23/24 [History] Zycan(Unknown Dose) 1 dose PO QAM 04/23/24 [History] Acetaminophen Tab [Tylenol] 650 mg PO Q4HR PRN tab 05/13/24 [Rx] Follow up Appointment(s)/Referral(s): Daniel Suresh MD [Primary Care Provider] - 1 Week Earlene Acevedo DO [STAFF PHYSICIAN] - 05/27/24 10:00 am Activity/Diet/Wound Care/Special Instructions: No strenuous activity or heavy lifting greater than 10 pounds. May shower tomorrow but no tub bathing or soaking. Watch incision site for infection including redness, drainage, or temperature greater than 100.4. If you notice he symptoms please call office Continue diabetic/heart healthy diet Continue home meds Follow-up with your primary care physician to repeat labs for kidney function Discharge Disposition: HOME SELF-CARE
== END 2024-05-13 10:49 | disposition home or self-care (01) | DRG 39 ==
LOC: 2ORMAIN 05:55 → EDSTATUS 07:30 → 3SCARD 12:25
PROVIDERS: ADMIT Surgery; ATTEND Surgery
PROC: 03UL0KZ Supplement Left Internal Carotid Artery with Nonautologous Tissue Substitute, Open Approach (ICD-10-PCS; 2024-05-12)
PROC: 03CL0ZZ Extirpation of Matter from Left Internal Carotid Artery, Open Approach (ICD-10-PCS; principal; 2024-05-12 07:30)
DX: I65.22 Occlusion and stenosis of left carotid artery (principal); E11.9 Type 2 diabetes mellitus without complications; J44.9 Chronic obstructive pulmonary disease, unspecified; I10 Essential (primary) hypertension; E78.5 Hyperlipidemia, unspecified; G47.33 Obstructive sleep apnea (adult) (pediatric); Z96.652 Presence of left artificial knee joint; Z79.01 Long term (current) use of anticoagulants; Z79.02 Long term (current) use of antithrombotics/antiplatelets; Z87.891 Personal history of nicotine dependence; Z85.46 Personal history of malignant neoplasm of prostate; Z86.711 Personal history of pulmonary embolism; Z86.718 Personal history of other venous thrombosis and embolism; Z86.73 Personal history of transient ischemic attack (TIA), and cerebral infarction without residual deficits; Z79.85 Long-term (current) use of injectable non-insulin antidiabetic drugs; Z79.84 Long term (current) use of oral hypoglycemic drugs; Z79.899 Other long term (current) drug therapy; Z92.3 Personal history of irradiation; Z87.74 Personal history of (corrected) congenital malformations of heart and circulatory system
CPT/HCPCS: 80048; 83036; 85025; 86850; 86900; 86901; 88304; 88305; 94640